=== PATIENT | male | born 1940 | race Caucasian/White ===

== ENCOUNTER 2022-02-01 18:21 | Inpatient (IN) | payer MEDICARE, MEDICAID, SELFPAY ==
--- NOTE | ~2022-02-01 | CT_ITS ---
EXAMINATION: CT HEAD WITHOUT CONTRAST CLINICAL INFORMATION: Mental status change. COMPARISON: None TECHNIQUE: Contiguous axial imaging was performed from the skull base to vertex without intravenous administration of contrast. This CT examination was performed using dose optimization techniques as appropriate, variously including the following: *Automated exposure control *Adjustment of mA and/or kV according to patient size (this includes techniques or standardized protocols for targeted exams where dose is matched to indication/reason for exam; i.e. extremities or head) *Use of iterative reconstruction technique DLP: 769.29 mGy-cm FINDINGS: There is no evidence of acute intracranial hemorrhage or territorial infarction. No abnormal mass effect or midline shift is seen. [place] to white matter differentiation is well preserved. No extra-axial fluid collections are identified. The ventricles and sulci are mildly enlarged. There is an anatomic variant of cavum septum pellucidum and cavum vergae seen. There is prominent periventricular and deep white matter low-attenuation seen, consistent with ischemic small vessel disease. Calcifications of the carotid siphons and the vertebral arteries seen. The osseous structures and soft tissues are normal. The mastoid air cells and visualized portions of the paranasal sinuses are well aerated. CT/CT head/brain wo con IMPRESSION: -No acute intracranial pathology. -Prominent findings of ischemic small vessel disease.
--- NOTE | ~2022-02-01 | XR_ITS ---
EXAMINATION: XR CHEST CLINICAL INFORMATION: Confusion and change in mental status COMPARISON: None TECHNIQUE: Frontal view of the chest was obtained. FINDINGS: No significant abnormality is noted involving the heart, lungs, mediastinum, bony thorax or soft tissues. Some minimal scarring or atelectasis may be present in the upper lobes. XR/XR chest 1V IMPRESSION: No acute intrathoracic disease
[2022-02-01 18:27] VITALS: BP 170/64; PULSE 84; RESP 16; TEMP 36.3; O2SAT 99; BMI 26.3
[2022-02-01 18:40] LABS: Glucose, Whole Blood 40 mg/dL (60-115)
--- NOTE | 2022-02-01 18:41 | PC.NURSE ---
patient is alert & oriented x4. POC 40 on arrival by this RN. present and aware of POC. Given 2 cups of orange juice with 2 sugar packets. Per EMS, was given 2mg of Glucagon by SNF prior to arrival. Pt denies history of diabetes, has fistula to right side. will recheck POC and obtain labs per MD orders.
--- NOTE | 2022-02-01 18:45 | ECG_ITS ---
Test Reason : HYPOGLYCEMIA Blood Pressure : / mmHG Vent. Rate : 079 BPM Atrial Rate : 079 BPM P-R Int : 162 ms QRS Dur : 088 ms QT Int : 316 ms P-R-T Axes : 048 005 055 degrees QTc Int : 362 ms Normal sinus rhythm Nonspecific T wave abnormality Abnormal ECG No previous ECGs available Referred By: Mehnaz Saleem Electronically Signed By:RAMA RAMIRES
[2022-02-01 19:04] LABS: Glucose, Whole Blood 44 mg/dL (60-115)
--- NOTE | 2022-02-01 19:06 | ED_ITS ---
HPI - General Adult General Chief complaint: General Medical Stated complaint: Hypoglycemia Time Seen by Provider: 02/01/22 18:43 Source: patient, EMS and RN notes reviewed Mode of arrival: EMS Limitations: no limitations History of Present Illness HPI narrative: 82-year-old male came in from [facility] SNF for evaluation of hypoglycemia. Patient found slurred speech and increased twitching and tremor 1 blood sugar was checked at the care home found to be 50 patient was given 2 mg of glucagon IM at the care home patient was transported to the hospital patient is awake and able to give history, patient felt slightly confused with increased shakiness and tremor, reviewing patient's record from SNF patient is not diabetic. Past medical history is significant for CAD, BPH, right arm AV fistula, CKD stage 3 no hemodialysis. Related Data Allergies Allergy/AdvReac Type Severity Reaction Status Date / Time peanut Allergy Anaphylaxis Verified 02/01/22 18:36 Review of Systems Review of Systems: All other systems are reviewed and are negative Constitutional: Reports as per HPI and Reports no additional constitutional complaints Eyes: Reports as per HPI and Reports no additional eye complaints Reports system reviewed and no additional complaints, except as documented Cardiovascular: Reports as per HPI and Reports no additional cardiovascular complaints Respiratory: Reports as per HPI and Reports no additional respiratory complaints Gastrointestinal: Reports as per HPI and Reports no additional gastrointestinal complaints Genitourinary: Reports no additional female genitourinary complaints Musculoskeletal: Reports no additional musculoskeletal complaints Skin/Breast: Reports system reviewed and no additional complaints, except as docu Psychiatric: Reports no additional psychiatric complaints Endocrine: Reports no additional endocrine complaints Hematologic/Lymphatic: Reports no additional hematologic/lymphatic complaints Allergic/Immunologic: Reports no additional allergic/immunologic complaints Reports system reviewed and no additional complaints, except as documented and Reports Abnormal speech present [facility] Social History Social History Advance Directives: No Advance Directives Information Provided: Yes Physical Exam ED Vital Signs: Vital Signs - 24 hr 02/01/22 18:27 Temperature 97.3 F Pulse Rate 84 Respiratory Rate 16 Blood Pressure 170/64 H Pulse Oximetry 99 Oxygen Delivery Method Room Air BMI result Body Mass Index 26.3 Vital signs have been reviewed as appeared to be correct. Blood pressure elevated, Heart rate normal. Respiration rate normal. Temperature normal. Oxygen saturation normal. Appearance: Alert. Oriented X3. No acute distress. Head: Normal external exam. Normocephalic. Atraumatic. No Julian signs noted. No raccoon eyes noted Eyes: PERRLA. EOMI. Conjunctiva and sclera normal. Eyelids normal. ENT: TM's Normal. Pharynx normal. Uvula midline. Moist mucous membranes. No trismus noted. No drooling noted. No muffled voice noted. Neck: Normal inspection. Neck supple. FROM. No adenopathy. Thyroid Normal. No meningeal signs. No neck mass noted. CVS: Normal heart rate and rhythm. Heart sound normal. No murmurs noted. Pulses normal throughout. Respiratory: No respiratory distress. Painless inspiration. Breath sounds normal. No wheezes/rales/rhonchi noted. Chest nontender. No accessory muscle usage noted or decreased air movement noted. Abdomen: Soft and nontender. Bowel sounds normal in all 4 quadrants. No distention noted. No organomegaly noted. No visible injury noted. Back: No CVA tenderness. Full range of motion noted. Skin: Skin warm and dry. Normal skin color. Normal skin turgor. No rashes/lesions/lacerations noted. Extremities: No lower extremity edema. Extremities exhibit normal range of motion. Extremities nontender. Neuro: Oriented X 3. Cranial nerve exam: II-XII are grossly intact No motor deficit. No sensory deficit. Reflexes normal. Course Course Course Narrative: 82-year-old male came in from SNF with hypoglycemia, patient is not known to be diabetic or taking anti-hyperglycemic agents, patient remained with hyp oglycemia despite several administration of glucagon at the care home and oral juice, and D5W fluid, and D50 25 g IV. Labs is not indicating sepsis or infection, unremarkable head CT/chest x-ray. Will admit the patient with continuous D5W and continuous BS monitoring. Incidental hypo magnesemia will replace magnesium IV. Medical Decision Making Lab Data Lab results reviewed: Yes I reviewed the patient's lab results. Result diagrams: 02/01/22 19:30 02/01/22 19:30 Labs: Lab Results 02/01/22 02/01/22 02/01/22 Range/Units 18:30 19:00 19:30 WBC 11.8 H (4.8-10.8) X10*3/uL RBC 3.20 L (4.60-5.80) X10*6/uL Hgb 9.9 L (14.0-18.0) g/dl Hct 29.8 L (42.0-52.0) % MCV 93.1 (80.0-98.0) fL MCH 30.9 (27.0-33.0) pg MCHC 33.2 (31.0-36.0) g/dl RDW 12.9 (11.0-16.0) % Plt Count 236 (160-400) X10*3/uL MPV 8.4 L (9.4-12.4) fL Immature Gran % (Auto) 0.5 H (0.0-0.4) % Neut % (Auto) 92.9 H (45-73) % Lymph % (Auto) 1.6 L (20-40) % [place] % (Auto) 5.0 (2-11) % Eos % (Auto) 0.0 (0-4) % Baso % (Auto) 0.0 (0-2) % Lymph # (Auto) 0.2 L (1.2-4.9) X10*3/uL [place] # (Auto) 0.6 (0.1-1.2) X10*3/uL Eos # (Auto) 0.0 (0.0-0.4) X10*3/uL Baso # (Auto) 0.0 (0.0-0.2) X10*3/uL Abs Immat Gran (auto) 0.06 H (0.00-0.03) X10*3/uL Absolute Neuts (auto) 10.9 H (2.0-8.3) x10*3/uL Absolute Nucleated RBC 0.000 (0.0-0.012) X10*3/uL Nucleated RBC % (auto) 0.0 (0.0-0.2) /100WBC Smear Tech's Comments VERIFIED Sodium (135-145) mmol/L Potassium (3.3-5.1) mmol/L Chloride (96-108) mmol/L Carbon Dioxide (22-29) mmol/L Anion Gap (12-20) BUN (9-16) mg/dL Creatinine (0.5-1.4) mg/dL Estim Creat Clear Calc Estimated GFR POC Glucose 40 L* 44 L* (60-115) mg/dL Random Glucose (60-115) mg/dL Lactic Acid (0.5-2.0) mmol/L Calcium (8.4-10.2) mg/dL Magnesium (1.6-2.6) mg/dL Total Bilirubin (0.0-1.0) mg/dL Direct Bilirubin (0.0-0.5) mg/dL AST (5-37) U/L ALT (0-40) U/L Alkaline Phosphatase (39-117) U/L Troponin I High Sens (<3.5-35.0) ng/L B-Natriuretic Peptide (<100) pg/mL Total Protein (6.5-8.0) g/dL Albumin (3.5-5.0) g/dL Lipase (8-78) U/L COVID-19 (MIKAELA) (Negative) COVID-19 Clin Com 02/01/22 02/01/22 02/01/22 Range/Units 19:30 19:30 19:30 WBC (4.8-10.8) X10*3/uL RBC (4.60-5.80) X10*6/uL Hgb (14.0-18.0) g/dl Hct (42.0-52.0) % MCV (80.0-98.0) fL MCH (27.0-33.0) pg MCHC (31.0-36.0) g/dl RDW (11.0-16.0) % Plt Count (160-400) X10*3/uL MPV (9.4-12.4) fL Immature Gran % (Auto) (0.0-0.4) % Neut % (Auto) (45-73) % Lymph % (Auto) (20-40) % [place] % (Auto) (2-11) % Eos % (Auto) (0-4) % Baso % (Auto) (0-2) % Lymph # (Auto) (1.2-4.9) X10*3/uL [place] # (Auto) (0.1-1.2) X10*3/uL Eos # (Auto) (0.0-0.4) X10*3/uL Baso # (Auto) (0.0-0.2) X10*3/uL Abs Immat Gran (auto) (0.00-0.03) X10*3/uL Absolute Neuts (auto) (2.0-8.3) x10*3/uL Absolute Nucleated RBC (0.0-0.012) X10*3/uL Nucleated RBC % (auto) (0.0-0.2) /100WBC Smear Tech's Comments Sodium 139 (135-145) mmol/L Potassium 3.7 (3.3-5.1) mmol/L Chloride 106 (96-108) mmol/L Carbon Dioxide 22 (22-29) mmol/L Anion Gap 15 (12-20) BUN 46 H (9-16) mg/dL Creatinine 1.60 H (0.5-1.4) mg/dL Estim Creat Clear Calc 32.7 Estimated GFR 41 POC Glucose (60-115) mg/dL Random Glucose 29 L* (60-115) mg/dL Lactic Acid (0.5-2.0) mmol/L Calcium 9.1 (8.4-10.2) mg/dL Magnesium (1.6-2.6) mg/dL Total Bilirubin 0.3 (0.0-1.0) mg/dL Direct Bilirubin 0.2 (0.0-0.5) mg/dL AST 10 (5-37) U/L ALT 10 (0-40) U/L Alkaline Phosphatase 54 (39-117) U/L Troponin I High Sens 11.8 (<3.5-35.0) ng/L B-Natriuretic Peptide 165 H (<100) pg/mL Total Protein 6.5 (6.5-8.0) g/dL Albumin 3.9 (3.5-5.0) g/dL Lipase 35 (8-78) U/L COVID-19 (MIKAELA) Negative (Negative) COVID-19 Clin Com See Note 02/01/22 02/01/22 02/01/22 Range/Units 19:30 19:30 20:15 WBC (4.8-10.8) X10*3/uL RBC (4.60-5.80) X10*6/uL Hgb (14.0-18.0) g/dl Hct (42.0-52.0) % MCV (80.0-98.0) fL MCH (27.0-33.0) pg MCHC (31.0-36.0) g/dl RDW (11.0-16.0) % Plt Count (160-400) X10*3/uL MPV (9.4-12.4) fL Immature Gran % (Auto) (0.0-0.4) % Neut % (Auto) (45-73) % Lymph % (Auto) (20-40) % [place] % (Auto) (2-11) % Eos % (Auto) (0-4) % Baso % (Auto) (0-2) % Lymph # (Auto) (1.2-4.9) X10*3/uL [place] # (Auto) (0.1-1.2) X10*3/uL Eos # (Auto) (0.0-0.4) X10*3/uL Baso # (Auto) (0.0-0.2) X10*3/uL Abs Immat Gran (auto) (0.00-0.03) X10*3/uL Absolute Neuts (auto) (2.0-8.3) x10*3/uL Absolute Nucleated RBC (0.0-0.012) X10*3/uL Nucleated RBC % (auto) (0.0-0.2) /100WBC Smear Tech's Comments Sodium (135-145) mmol/L Potassium (3.3-5.1) mmol/L Chloride (96-108) mmol/L Carbon Dioxide (22-29) mmol/L Anion Gap (12-20) BUN (9-16) mg/dL Creatinine (0.5-1.4) mg/dL Estim Creat Clear Calc Estimated GFR POC Glucose 48 L* (60-115) mg/dL Random Glucose (60-115) mg/dL Lactic Acid 1.0 (0.5-2.0) mmol/L Calcium 9.8 D (8.4-10.2) mg/dL Magnesium 1.5 L (1.6-2.6) mg/dL Total Bilirubin (0.0-1.0) mg/dL Direct Bilirubin (0.0-0.5) mg/dL AST (5-37) U/L ALT (0-40) U/L Alkaline Phosphatase (39-117) U/L Troponin I High Sens (<3.5-35.0) ng/L B-Natriuretic Peptide (<100) pg/mL Total Protein (6.5-8.0) g/dL Albumin (3.5-5.0) g/dL Lipase (8-78) U/L COVID-19 (MIKAELA) (Negative) COVID-19 Clin Com Imaging Data CT scan - head: Attestation: I personally reviewed and interpreted this imaging study as follows: Radiologist's impression: No acute intracranial pathology. -Prominent findings of ischemic small vessel disease. Chest x-ray: Attestation: I personally reviewed and interpreted this imaging study as follows: Radiologist's impression: No acute intrathoracic disease. ECG Data Attestation: I personally reviewed and interpreted this ECG as follows: Interpretation: Normal sinus rhythm at 79 beats per minutes, diffuse nonspecific T-wave changes, normal intervals, no previous EKG to compare. Discharge Plan Discharge Clinical Impression: Hypoglycemia, Hypomagnesemia Patient Disposition: Admitted As Inpatient
[2022-02-01 19:42] LABS: Hematocrit 29.8 % (42.0-52.0); Hemoglobin 9.9 g/dl (14.0-18.0); Imm Gran Abs Auto 0.06 X10*3/uL (0.00-0.03); Imm Gran Pct Auto 0.5 % (0.0-0.4); Lymphocytes Absolute Auto 0.2 X10*3/uL (1.2-4.9); Lymphocytes Percent Auto 1.6 % (20-40); Mean Corpuscular HGB Conc 33.2 g/dl (31.0-36.0); Mean Corpuscular Hemoglobin 30.9 pg (27.0-33.0); Mean Corpuscular Volume 93.1 fL (80.0-98.0); Mean Platelet Volume 8.4 fL (9.4-12.4); Monocytes Absolute Auto 0.6 X10*3/uL (0.1-1.2); Neutrophils Absolute Auto 10.9 x10*3/uL (2.0-8.3); Neutrophils Percent Auto 92.9 % (45-73); Platelet Count 236 X10*3/uL (160-400); Red Cell Distribution Width 12.9 % (11.0-16.0); SCAN SMEAR FLAG 1; White Blood Count 11.8 X10*3/uL (4.8-10.8)
[2022-02-01 19:43] LABS: MANUAL DIFF FLAG SCAN
[2022-02-01] MEDS: Dextrose 5 % 1,000 ML 500 ML IVCONT (19:51)
[2022-02-01 19:58] LABS: COVID-19 Test Negative (Negative)
[2022-02-01 20:03] LABS: Calcium 9.8 mg/dL (8.4-10.2); Magnesium 1.5 mg/dL (1.6-2.6)
[2022-02-01 20:04] LABS: SLIDE REVIEW VERIFIED
[2022-02-01 20:07] LABS: B Type Natriuretic Peptide 165 pg/mL (<100); Troponin-I High Sensitivity 11.8 ng/L (<3.5-35.0)
[2022-02-01 20:10] LABS: Alanine Aminotransferase 10 U/L (0-40); Albumin Level 3.9 g/dL (3.5-5.0); Alkaline Phosphatase 54 U/L (39-117); Anion Gap 15 (12-20); Aspartate Amino Transferase 10 U/L (5-37); Bilirubin Direct 0.2 mg/dL (0.0-0.5); Bilirubin Total 0.3 mg/dL (0.0-1.0); Blood Urea Nitrogen 46 mg/dL (9-16); Calcium 9.1 mg/dL (8.4-10.2); Carbon Dioxide 22 mmol/L (22-29); Chloride 106 mmol/L (96-108); Creatinine Clr Calc Pharmacy 32.7; Estimated Glomerular Filt Rate 41; Glucose Random 29 mg/dL (60-115); Lipase 35 U/L (8-78); Potassium 3.7 mmol/L (3.3-5.1); Sodium 139 mmol/L (135-145); Total Protein 6.5 g/dL (6.5-8.0)
[2022-02-01 20:19] LABS: Glucose, Whole Blood 48 mg/dL (60-115)
[2022-02-01] MEDS: Dextrose 50 % 25 GM/50 ML SYRINGE IVPUSH ×2 (20:24→23:54)
[2022-02-01] MEDS: Magnesium Sulfate/H2O 2 GM/50 ML PIGGYBACK IV (21:06)
[2022-02-01] MEDS: Heparin Sodium,Porcine 5,000 UNIT/ML VIAL 5000 UNIT SUBCUT (21:06)
[2022-02-01 21:15] LABS: Thyroid Stimulating Hormone 0.46 uIU/mL (0.32-4.0)
[2022-02-01 21:20] LABS: Glucose, Whole Blood 74 mg/dL (60-115)
--- NOTE | 2022-02-01 21:25 | PHA.MEDREC ---
Pharmacy Consult ? Medication Reconciliation Pharmacy has completed the medication reconciliation. LIST PER [place] [facility]
--- NOTE | 2022-02-01 21:35 | PC.NURSE ---
Dextrose 10% 1000ml bags not on unit. Called Nursing Mental Health Aides Teacher (Tom) and Pharmacy regarding order. Nursing calendering supervisor looking for D10 within hospital. However, 250ml bags of D10 are available if 1L bags aren't located within [facility]. Will continue D5W administration until D10 is available.
[2022-02-01] MEDS: Dextrose 10 % 1,000 ML 50 ML IVCONT (22:31)
[2022-02-01] MEDS: dexAMETHasone sod phosphate 4 MG/ML VIAL IVPUSH (22:36)
--- NOTE | 2022-02-01 23:37 | P.HPHOSP_ITS ---
History of Present Illness Date of Service: 02/01/22 Chief Complaint: AMS 82-year-old male with a past medical history hypertension, hyperlipidemia, BPH, CKD, history of kidney transplant, dry eye syndrome, vitamin-D deficiency, dysphagia, spinal stenosis, right arm AV fistula, CAD, hyperparathyroidism, macular degeneration, squamous cell carcinoma of the trunk, basal cell carcinoma of the skin of left ER, varicose veins, dementia, intermediate resident presented to the hospital today with a chief complaint of altered mental status/ hypoglycemia. Spoke to the RN - PHURBU at the intermediate- who mentions that patient was noted to be slightly altered than his baseline; has fingerstick glucose checked and noted to have 50 of fingerstick glucose; subsequently EMS was called in and sent him to the hospital for further evaluation. Denies patient complaining of any fever chills cough, abdominal pain. Denies any fall or trauma. Denies patient complaining of any chest pain palpitations. Denied any seizure-like episode. Mentions that patient is usually able to tolerate regular food okay; walks with the help of a cane or walker. Denies any numbness tingling or focal weakness. At the time of my entry patient is alert and awake, oriented times 2; pleasantly confused. Denies any pain. Reports he was feeling cold; has few blankets in place. Review of all other systems is negative except mentioned above ER course: Per ER team patient on presentation noted to be alert and awake; exam grossly nonfocal; CT head showed no acute findings; on labs noted to have creatinine of 1.6-unknown baseline; EKG was nonischemic; fingerstick glucose noted to be in 40s; patient was given glucagon and route by EMS; patient was placed on D10 after giving D50 IV push. Patient continued to have episodes of hypoglycemia; placed on D10 drip; admitted to the hospital for further management. [facility] Social History Household Members: None Housing: Retirement Patient Tobacco Use Status: Never used Tobacco service: No Current occupational status: disabled Meds Allergies Allergy/AdvReac Type Severity Reaction Status Date / Time peanut Allergy Anaphylaxis Verified 02/01/22 18:36 Active Medications: Current Medications Acetaminophen (Acetaminophen 325 Mg Tablet) 650 mg PO Q6H PRN PRN Reason: Pain, Mild (Pain Scale 1-3) Dextrose (Dextrose 50 % 25 Gm/50 Ml Syringe) 25 gm IVPUSH Q15M PRN; Protocol PRN Reason: per Hypoglycemia Standing Ord. Glucose (Glucose Gel 15 Gm Gel..Gram.) 15 gm PO Q15M PRN; Protocol PRN Reason: per Hypoglycemia Standing Ord. Heparin Sodium (Porcine) (Heparin Sodium,Porcine 5,000 Unit/Ml Vial) 5,000 unit SUBCUT Q8H [facility] Last Admin: 02/01/22 21:06 Dose: 5,000 unit Hydromorphone HCl (Hydromorphone Hcl 0.5 Mg/0.5 Ml Syringe) 0.5 mg IVPUSH Q4H PRN; Protocol PRN Reason: Pain, Severe (Pain Scale 7-10) Dextrose (D10) 1,000 mls @ 50 mls/hr IVCONT .Q20H [facility] Last Admin: 02/01/22 22:31 Dose: 50 mls/hr Melatonin (Melatonin 3 Mg Tablet) 6 mg PO BEDTIME PRN PRN Reason: Insomnia Pharmacy Consult (Consult Rx Perform Med Rec) 1 each MISCELLANE ONCE PRN PRN Reason: Consult order Senna (Sennosides 8.6 Mg Tablet) 17.2 mg PO BEDTIME PRN PRN Reason: Constipation Sodium Chloride (0.9 % Sodium Chloride Flush 3 Ml Syringe) 3 ml IVFLUSH QSHIFT [facility] Home Medications Medication Instructions Recorded Confirmed Last Taken Type Icaps MV 1 tab PO DAILY 02/01/22 02/01/22 02/01/22 History aspirin 81 mg tablet,delayed 81 mg PO DAILY 02/01/22 02/01/22 02/01/22 History release bupropion HCl 300 mg 24 hr tablet, 1 tab PO DAILY 02/01/22 02/01/22 02/01/22 History extended release calcitriol 0.25 mcg capsule 1 cap PO DAILY 02/01/22 02/01/22 02/01/22 History cholecalciferol (vitamin D3) 1,250 1,250 mcg PO QMONTH 02/01/22 02/01/22 01/09/22 09:00 History mcg (50,000 unit) capsule cinacalcet 30 mg tablet 1 tab PO DAILY 02/01/22 02/01/22 02/01/22 History cyanocobalamin (vitamin B-12) 1,000 mcg PO DAILY 02/01/22 02/01/22 02/01/22 History 1,000 mcg tablet (Vitamin B-12) cyclosporine modified 100 mg 100 mg PO BID@02/01/22 02/01/22 02/01/22 History capsule dutasteride 0.5 mg capsule 1 cap PO DAILY 02/01/22 02/01/22 02/01/22 History escitalopram oxalate 20 mg tablet 1 tab PO DAILY 02/01/22 02/01/22 02/01/22 History glucosamine sulf dipotassium Cl 1 tab PO DAILY 02/01/22 02/01/22 02/01/22 History 500 mg-chondroitin sulf 400 mg tablet (Glucosamine-Chondroitin DS) lamotrigine 25 mg tablet 250 mg PO DAILY 02/01/22 02/01/22 02/01/22 History losartan 50 mg tablet 1 tab PO DAILY 02/01/22 02/01/22 02/01/22 History mycophenolate mofetil 250 mg 500 mg PO BID@02/01/22 02/01/22 02/01/22 History capsule (CellCept) peg 400-propylene glycol 0.4 %-0.3 1 drp ophthalmic (eye) BID@02/01/22 02/01/22 02/01/22 History % eye drops PRN Dry Eye(S) psyllium 1 tbsp PO DAILY@182902/01/22 02/01/22 02/01/22 History tamsulosin 0.4 mg capsule 2 cap PO DAILY@182902/01/22 02/01/22 02/01/22 History tramadol 50 mg tablet 1 tab PO BEDTIME 02/01/22 02/01/22 Unknown History trazodone 100 mg tablet 1 tab PO DAILY@182902/01/22 02/01/22 02/01/22 History verapamil 240 mg 24 hr 1 cap PO DAILY 02/01/22 02/01/22 02/01/22 History capsule,extended release Physical Exam Vital Signs and Narrative: Vital Signs: Last Vital Signs Temp 97.3 F 02/01/22 18:27 Pulse 84 02/01/22 18:27 Resp 16 02/01/22 18:27 BP 170/64 H 02/01/22 18:27 Pulse Ox 99 07/24/22 18:27 O2 Del Method 02/01/22 18:27 BMI result Body Mass Index 26.3 Gen: Appears be in no acute distress ; breathing comfortably on room air. Speech is clear. HEENT: NCAT, Moist mucosa. Pulmonary: Vesicular breath sounds, fair air entry CVS: Normal S1-S2 Abdomen: BS+, Soft, Nontender Extremities: Warm well perfused ; right arm has big tortuous vein, with the distal AV fistula- has good thrill. Neuro: Alert and awake. Grossly nonfocal. Oriented x2. Results Labs CBC and Chem 7: 02/02/22 05:42 02/10/22 06:52 Labs: Laboratory Results - last 24 hr 02/01/22 02/01/22 02/01/22 18:30 19:00 19:30 MCV 93.1 MCH 30.9 MCHC 33.2 RDW 12.9 Plt Count 236 MPV 8.4 L Immature Gran % (Auto) 0.5 H Neut % (Auto) 92.9 H Lymph % (Auto) 1.6 L [place] % (Auto) 5.0 Eos % (Auto) 0.0 Baso % (Auto) 0.0 Lymph # (Auto) 0.2 L [place] # (Auto) 0.6 Eos # (Auto) 0.0 Baso # (Auto) 0.0 Abs Immat Gran (auto) 0.06 H Absolute Neuts (auto) 10.9 H Absolute Nucleated RBC 0.000 Nucleated RBC % (auto) 0.0 Smear Tech's Comments VERIFIED Anion Gap Estim Creat Clear Calc Estimated GFR POC Glucose 40 L* 44 L* Random Glucose Lactic Acid Calcium Magnesium Total Bilirubin Direct Bilirubin AST ALT Alkaline Phosphatase Troponin I High Sens B-Natriuretic Peptide Total Protein Albumin Lipase TSH COVID-19 (MIKAELA) COVID-19 Clin Com 02/01/22 02/01/22 02/01/22 19:30 19:30 19:30 MCV MCH MCHC RDW Plt Count MPV Immature Gran % (Auto) Neut % (Auto) Lymph % (Auto) [place] % (Auto) Eos % (Auto) Baso % (Auto) Lymph # (Auto) [place] # (Auto) Eos # (Auto) Baso # (Auto) Abs Immat Gran (auto) Absolute Neuts (auto) Absolute Nucleated RBC Nucleated RBC % (auto) Smear Tech's Comments Anion Gap 15 Estim Creat Clear Calc 32.7 Estimated GFR 41 POC Glucose Random Glucose 29 L* Lactic Acid Calcium 9.1 Magnesium Total Bilirubin 0.3 Direct Bilirubin 0.2 AST 10 ALT 10 Alkaline Phosphatase 54 Troponin I High Sens 11.8 B-Natriuretic Peptide 165 H Total Protein 6.5 Albumin 3.9 Lipase 35 TSH 0.46 COVID-19 (MIKAELA) Negative COVID-19 Clin Com See Note 02/01/22 02/01/22 02/01/22 19:30 19:30 20:15 MCV MCH MCHC RDW Plt Count MPV Immature Gran % (Auto) Neut % (Auto) Lymph % (Auto) [place] % (Auto) Eos % (Auto) Baso % (Auto) Lymph # (Auto) [place] # (Auto) Eos # (Auto) Baso # (Auto) Abs Immat Gran (auto) Absolute Neuts (auto) Absolute Nucleated RBC Nucleated RBC % (auto) Smear Tech's Comments Anion Gap Estim Creat Clear Calc Estimated GFR POC Glucose 48 L* Random Glucose Lactic Acid 1.0 Calcium 9.8 D Magnesium 1.5 L Total Bilirubin Direct Bilirubin AST ALT Alkaline Phosphatase Troponin I High Sens B-Natriuretic Peptide Total Protein Albumin Lipase TSH COVID-19 (MIKAELA) COVID-19 Clin Com 02/01/22 21:15 MCV MCH MCHC RDW Plt Count MPV Immature Gran % (Auto) Neut % (Auto) Lymph % (Auto) [place] % (Auto) Eos % (Auto) Baso % (Auto) Lymph # (Auto) [place] # (Auto) Eos # (Auto) Baso # (Auto) Abs Immat Gran (auto) Absolute Neuts (auto) Absolute Nucleated RBC Nucleated RBC % (auto) Smear Tech's Comments Anion Gap Estim Creat Clear Calc Estimated GFR POC Glucose 74 Random Glucose Lactic Acid Calcium Magnesium Total Bilirubin Direct Bilirubin AST ALT Alkaline Phosphatase Troponin I High Sens B-Natriuretic Peptide Total Protein Albumin Lipase TSH COVID-19 (MIKAELA) COVID-19 [facility] Com Imaging Radiologist's Impressions: Impressions Chest X-Ray 02/01/22 18:58 IMPRESSION: No acute intrathoracic disease Head CT 02/01/22 19:01 IMPRESSION: -No acute intracranial pathology. -Prominent findings of ischemic small vessel disease. Assessment and Plan (1) Hypoglycemia: Status: Acute (2) UTI (urinary tract infection): Status: Acute (3) AMS (altered mental status): Status: Acute Plan 82-year-old male with a past medical history hypertension, hyperlipidemia, BPH, CKD, history of kidney transplant, dry eye syndrome, vitamin-D deficiency, dysphagia, spinal stenosis, right arm AV fistula, CAD, hyperparathyroidism, macular degeneration, squamous cell carcinoma of the trunk, basal cell carcinoma of the skin of left ER, varicose veins, dementia, intermediate resident presente d to the hospital today with a chief complaint of altered mental status/ hypoglycemia. Noted to have following conditions- Altered mental status: Likely toxic metabolic encephalopathy. Supportive care. Aspiration precautions. Speech and swallow eval. Fall precautions. Hypoglycemia: Patient had recurrent hypoglycemia. Unclear etiology. placed on hypoglycemia protocol. Continue D10 IV continuously. Q1-2Hr POC glucose checks. Seizure precautions. Will send hypoglycemia panel, insulin, proinsulin, beta hydroxybutyrate, C- peptide. Endocrine follow-up UTI: Patient is hypothermic, has mild leukocytosis. Urinalysis contain positive nitrates and leuk esterase. Will give the patient on IV ceftriaxone. Follow up cultures. Placed on warm blankets. Urinary retention: Patient had urinary retention about 1200 cc. George catheter placed. Likely in the setting of UTI. Will also consult Urology. Renal insufficiency: Patient has history of CKD. Has a right arm fistula with good thrill. Denies being on dialysis. Patient's creatinine on presentation is 1.6. Unknown baseline. Has history of kidney transplant: Continue home mycophenolate, cyclosporine Nephrology consult History of BPH: Continue home dutasteride, Flomax. history of dementia with behavioral disturbances: Continue home escitalopram, lamotrigine, trazodone History of hypertension: Continue home losartan, verapamil DVT prophylaxis: Subcu heparin Code status: DNR / DNI. Patient has molst form. Quality Stroke Does the patient have a stroke diagnosis?: No VTE Prior VTE?: No VTE Risk Level:: Medical - moderate - high VTE Device Contraindication: Treatment Not Indicated VTE Drug Contraindication: N/A - Med Ordered
[2022-02-01 23:54] LABS: Glucose, Whole Blood 22 mg/dL (60-115)
[2022-02-02] VITALS (7 sets, daily range): BP systolic 150–190; BP diastolic 67–81; PULSE 85–104; RESP 14–24; TEMP 35.9–36.8; O2SAT 91–98; BMI 26.4
[2022-02-02 00:18] LABS: Glucose, Whole Blood 186 mg/dL (60-115)
[2022-02-02 00:32] LABS: Appearance Urine HAZY; Color Urine YELLOW; Glucose Urine UA NEG (NEG); Leukocyte Esterase Urine TRACE (NEG); Nitrite Urine POS (NEG); UACC Culture Trigger YES; Urine Blood TRACE (NEG); Urine Ketones NEG (NEG); Urine Protein NEG (NEG-TRACE)
[2022-02-02] MEDS: 0.9 % Sodium Chloride Flush 3 ML SYRINGE IVFLUSH ×3 (00:37→22:44)
[2022-02-02] MEDS: Lidocaine HCl 2 % Urojet 10 ML JEL.PF.APP TOPICAL (00:37)
--- NOTE | 2022-02-02 00:38 | PC.NURSE ---
Coude catheter inserted. Urojet administered for procedure. Pt tolerated well. Urine draining into urine bag. George ordered by Dr. Rosa (hospitalist). Urine specimen collected & sent to lab for analysis, awaiting results. POC glucose to be checked hourly per Dr. Rosa. POC at 00:14 was 186. Hospitalist aware. Will continue to monitor. Pt is afebrile, but tremulous. SPO2 forehead monitor placed due to difficulty reading due to tremors. Pt remains pleasant/cooperative/calm, denies complaints at this time.
[2022-02-02 00:45] LABS: Mucus Urine TRACE /LPF; Squamous Epithelial Cell Urine TRACE /LPF
[2022-02-02 00:46] LABS: Bacteria Urine 1+ /LPF; RBC Urine 0-2 /HPF (0)
[2022-02-02 01:03] LABS: Glucose, Whole Blood 83 mg/dL (60-115)
--- NOTE | 2022-02-02 02:06 | PC.NURSE ---
MD notified of persistent hypoglycemia despite D10 infusion and 2 amps of D50. Per MD, to feed pt as much as possible and recheck POC.
[2022-02-02 02:09] LABS: Glucose, Whole Blood 32 mg/dL (60-115)
[2022-02-02 02:56] LABS: Glucose, Whole Blood 41 mg/dL (60-115)
--- NOTE | 2022-02-02 03:21 | PC.NURSE ---
A second IV established to left upper arm as IV to LAC infusing poorly. IVFs not infusing without difficulty. Continue to monitor.
[2022-02-02] MEDS: cefTRIAXone sodium 1 GM in 0.9 % Sodium Chloride 50 ML IV (03:41)
[2022-02-02 04:14] LABS: Glucose, Whole Blood 94 mg/dL (60-115)
[2022-02-02 05:48] LABS: Hematocrit 26.9 % (42.0-52.0); Hemoglobin 8.9 g/dl (14.0-18.0); Imm Gran Abs Auto 0.05 X10*3/uL (0.00-0.03); Imm Gran Pct Auto 0.4 % (0.0-0.4); Lymphocytes Absolute Auto 0.2 X10*3/uL (1.2-4.9); Lymphocytes Percent Auto 1.6 % (20-40); MANUAL DIFF FLAG SCAN; Mean Corpuscular HGB Conc 33.1 g/dl (31.0-36.0); Mean Corpuscular Hemoglobin 30.7 pg (27.0-33.0); Mean Corpuscular Volume 92.8 fL (80.0-98.0); Mean Platelet Volume 9.2 fL (9.4-12.4); Monocytes Absolute Auto 0.4 X10*3/uL (0.1-1.2); Monocytes Percent Auto 3.1 % (2-11); Neutrophils Absolute Auto 11.2 x10*3/uL (2.0-8.3); Neutrophils Percent Auto 94.9 % (45-73); PLT CLUMP 1; Red Cell Distribution Width 13.2 % (11.0-16.0); SCAN SMEAR FLAG 1
[2022-02-02 05:51] LABS: White Blood Count 11.8 X10*3/uL (4.8-10.8)
[2022-02-02 06:05] LABS: Magnesium 1.7 mg/dL (1.6-2.6)
[2022-02-02 06:12] LABS: SLIDE REVIEW VERIFIED
[2022-02-02 06:14] LABS: Anion Gap 13 (12-20); Blood Urea Nitrogen 43 mg/dL (9-16); Calcium 8.5 mg/dL (8.4-10.2); Carbon Dioxide 20 mmol/L (22-29); Chloride 105 mmol/L (96-108); Creatinine Clr Calc Pharmacy 34.8; Estimated Glomerular Filt Rate 45; Glucose Random 54 mg/dL (60-115); Potassium 4.5 mmol/L (3.3-5.1); Sodium 133 mmol/L (135-145)
[2022-02-02 06:14] LABS: Glucose, Whole Blood 63 mg/dL (60-115)
--- NOTE | 2022-02-02 06:18 | PC.NURSE ---
Pt constantly provided with food/drink due to continued hypoglycemia. Pt remains on hourly POCs. D10 infusing @ 75 ml/hr. Continue to monitor.
[2022-02-02 06:26] LABS: Insulin 26 uU/mL (2-29)
[2022-02-02 07:34] LABS: Glucose, Whole Blood 69 mg/dL (60-115)
[2022-02-02 08:08] LABS: Glucose, Whole Blood 72 mg/dL (60-115)
[2022-02-02 08:41] LABS: Glucose, Whole Blood 84 mg/dL (60-115)
--- NOTE | 2022-02-02 08:59 | MHC.CM.PN ---
Patient is a LTC (BED HOLD) of [facility] and the goal appears to be for him to return there once medically cleared for dc. CM left a message for Guardian/Bill @ [address] [place] [address] in [place] @ [phone] and will mail original IMM to him and a copy will be placed on the chart.
[2022-02-02] MEDS: lamoTRIgine 25 MG TABLET 250 MG PO (09:23)
[2022-02-02] MEDS: Aspirin Enteric Coated 81 MG TABLET.DR PO (09:23)
[2022-02-02] MEDS: Escitalopram Oxalate 20 MG TABLET PO (09:23)
[2022-02-02] MEDS: Cyanocobalamin (Vitamin B-12) 1,000 MCG TABLET 1000 MCG PO (09:24)
[2022-02-02] MEDS: Heparin Sodium,Porcine 5,000 UNIT/ML VIAL 5000 UNIT SUBCUT ×2 (09:24→17:41)
[2022-02-02] MEDS: Losartan Potassium 50 MG TABLET PO (09:24)
[2022-02-02] MEDS: buPROPion HCl XL 300 MG TAB.ER.24H PO (09:25)
[2022-02-02] MEDS: VerapamiL HCL SR 240 MG TABLET.ER PO (09:25)
[2022-02-02] MEDS: calcitrioL 0.25 MCG CAPSULE PO (09:26)
[2022-02-02] MEDS: Cinacalcet HCl 30 MG TABLET PO (09:26)
--- NOTE | 2022-02-02 10:47 | MHC.SL.SWA ---
Speech Pathologist Impression: WFL Risk of Aspiration Due to: Reduced Cognition Dysphasia Diet Status: No Change Liquid Consistency and Strategies for Safe Swallow: Liquid Intake Recommendation: Thin Liquid Intake Strategies: Small Sips Solid Food Consistency: Dietary Recommendations: Regular Additional Modifications to Solid Foods: Bedside swallow evaluation was unremarkable. Recommend continue w/ unmodified diet. Given hx dementia, recommend aspiration precautions & supervision during meals. Oral Medication Intake: Whole with Liquid Please contact the pharmacy regarding appropriate crushable or liquid drug formulations that are available whenever modified delivery is recommended. Compensatory Strategies and Precautions to be Taken for Safe Swallow: Sitting Upright (90 deg) Small Bites and Sips Alternate Liquids/Solids Rate of Ingestion Change Supervision While Eating and Drinking for Safe Swallow: Total Supervision (1:1) Recommendation for Speech: NA:Typical Evaluation Electroplater Apprentice Clinican/Clinical Fellow: No Supervisory Statement: I have reviewed and agree with the student/clinical fellow's documentation: N/A Speech Language Pathologist: Morenita Hanna M.A., CCC-BLOWING ENGINEER
[2022-02-02] MEDS: mycophenolate mofetiL 250 MG CAPSULE 500 MG PO ×2 (11:10→17:58)
--- NOTE | 2022-02-02 11:15 | PC.NURSE ---
[facility] contacted and they will attempt to get someone to bring in her cephalosporin and will contact us if they are unable
--- NOTE | 2022-02-02 11:27 | HO.PM.IMPN ---
Subjective Subjective Date of Service: 02/02/22 Interval History: f/u on AMS, Hypoglycemia, UTI Interval history: no confusion, Review of Systems no confusion no fever Physical Exam Vital Signs: Vital Signs: Last Vital Signs Temp 96.6 F L 02/02/22 00:00 Pulse 104 H 02/02/22 10:21 Resp 24 H 02/02/22 10:21 BP 190/80 H 02/02/22 10:21 Pulse Ox 97 02/02/22 10:21 O2 Del Method 02/02/22 10:21 BMI result Body Mass Index 26.3 Const: Other: General: AO X 3, no acute distress Resp: CTA bilateral CVS: S1,S2,RRR GI: +BS, NT, no distention Skin: No rash Neuro: motor grossly intact Psych: appropriate affect Objective Data Active Medications Acetaminophen (Acetaminophen 325 Mg Tablet) 650 mg PO Q6H PRN PRN Reason: Pain, Mild (Pain Scale 1-3) Artificial Tears (Artificial Tears 15 Ml Drops) 1 drop EYE-BOTH BID@ PRN PRN Reason: Dry Eye(S) Aspirin (Aspirin Enteric Coated 81 Mg Tablet.) 81 mg PO DAILY [facility] Last Admin: 02/02/22 09:23 Dose: 81 mg Documented By: MILANA Bupropion HCl (Bupropion Hcl Xl 300 Mg Tab.Er.24h) 300 mg PO DAILY [facility] Last Admin: 02/02/22 09:25 Dose: 300 mg Documented By: MILANA Calcitriol (Calcitriol 0.25 Mcg Capsule) 0.25 mcg PO DAILY [facility] Last Admin: 02/02/22 09:26 Dose: 0.25 mcg Documented By: MILANA Cinacalcet (Cinacalcet Hcl 30 Mg Tablet) 30 mg PO DAILY [facility] Last Admin: 02/02/22 09:26 Dose: 30 mg Documented By: MILANA Cyanocobalamin (Cyanocobalamin (Vitamin B-12) 1,000 Mcg Tablet) 1,000 mcg PO DAILY [facility] Last Admin: 02/02/22 09:24 Dose: 1,000 mcg Documented By: MILANA Cyclosporine (Modified) (Cyclosporine, Modified 25 Mg Capsule) 100 mg PO BID@ [facility] Dextrose (Dextrose 50 % 25 Gm/50 Ml Syringe) 25 gm IVPUSH Q15M PRN; Protocol PRN Reason: per Hypoglycemia Standing Ord. Last Admin: 02/01/22 23:54 Dose: 25 gm Documented By: JUAN Escitalopram Oxalate (Escitalopram Oxalate 20 Mg Tablet) 20 mg PO DAILY [facility] Last Admin: 02/02/22 09:23 Dose: 20 mg Documented By: MILANA Glucose (Glucose Gel 15 Gm Gel..Gram.) 15 gm PO Q15M PRN; Protocol PRN Reason: per Hypoglycemia Standing Ord. Heparin Sodium (Porcine) (Heparin Sodium,Porcine 5,000 Unit/Ml Vial) 5,000 unit SUBCUT Q8H [facility] Last Admin: 02/02/22 09:24 Dose: 5,000 unit Documented By: MILANA Hydromorphone HCl (Hydromorphone Hcl 0.5 Mg/0.5 Ml Syringe) 0.5 mg IVPUSH Q4H PRN; Protocol PRN Reason: Pain, Severe (Pain Scale 7-10) Dextrose (D10) 1,000 mls @ 50 mls/hr IVCONT .Q20H [facility] Last Infusion: 02/02/22 04:30 Dose: 75 mls/hr Documented By: MUKESH Ceftriaxone Sodium 1 gm/ (Sodium Chloride) 50 mls @ 100 mls/hr IV DAILY@0600 [facility] Last Infusion: 02/02/22 04:39 Dose: 0 mls/hr Documented By: MUKESH Lamotrigine (Lamotrigine 25 Mg Tablet) 250 mg PO DAILY [facility] Last Admin: 02/02/22 09:23 Dose: 250 mg Documented By: MILANA Losartan Potassium (Losartan Potassium 50 Mg Tablet) 50 mg PO DAILY [facility]; Protocol Last Admin: 02/02/22 09:24 Dose: 50 mg Documented By: MILANA Melatonin (Melatonin 3 Mg Tablet) 6 mg PO BEDTIME PRN PRN Reason: Insomnia Mycophenolate Mofetil (Mycophenolate Mofetil 250 Mg Capsule) 500 mg PO BID@ [facility] Last Admin: 02/02/22 11:10 Dose: 500 mg Documented By: MILANA Non-Formulary Medication (Dutasteride) 1 cap PO DAILY [facility] Pharmacy Consult (Consult Rx Perform Med Rec) 1 each MISCELLANE ONCE PRN PRN Reason: Consult order Senna (Sennosides 8.6 Mg Tablet) 17.2 mg PO BEDTIME PRN PRN Reason: Constipation Sodium Chloride (0.9 % Sodium Chloride Flush 3 Ml Syringe) 3 ml IVFLUSH QSHIFT [facility] Last Admin: 02/02/22 10:44 Dose: Not Given Documented By: MILANA Non-Admin Reason: See Note Tamsulosin HCl (Tamsulosin Hcl 0.4 Mg Capsule) 0.8 mg PO DAILY@1830 [facility] Tramadol HCl (Tramadol Hcl 50 Mg Tablet) 50 mg PO BEDTIME [facility] Trazodone HCl (Trazodone Hcl 100 Mg Tablet) 100 mg PO DAILY@1830 [facility] Verapamil HCl (Verapamil Hcl Sr 240 Mg Tablet.Er) 240 mg PO DAILY [facility]; Protocol Last Admin: 02/02/22 09:25 Dose: 240 mg Documented By: MILANA Labs CBC & Chem 7: 02/02/22 05:42 02/02/22 05:41 Labs: Laboratory Results - last 24 hr 02/01/22 02/01/22 02/01/22 18:30 19:00 19:30 MCV 93.1 MCH 30.9 MCHC 33.2 RDW 12.9 Plt Count 236 MPV 8.4 L Immature Gran % (Auto) 0.5 H Neut % (Auto) 92.9 H Lymph % (Auto) 1.[address] [facility] % (Auto) 5.0 Eos % (Auto) 0.0 Baso % (Auto) 0.0 Lymph # (Auto) 0.[address] [facility] # (Auto) 0.6 Eos # (Auto) 0.0 Baso # (Auto) 0.0 Abs Immat Gran (auto) 0.06 H Absolute Neuts (auto) 10.9 H Absolute Nucleated RBC 0.000 Nucleated RBC % (auto) 0.0 Smear Tech's Comments VERIFIED Anion Gap Estim Creat Clear Calc Estimated GFR POC Glucose 40 L* 44 L* Random Glucose Insulin Level Proinsulin C-Peptide Lactic Acid Calcium Magnesium Total Bilirubin Direct Bilirubin AST ALT Alkaline Phosphatase Troponin I High Sens B-Natriuretic Peptide Total Protein Albumin Lipase TSH Urine Color Urine Appearance Urine pH Ur Specific [place] Urine Protein Urine Glucose (UA) Urine Ketones Urine Blood Urine Nitrite Ur Leukocyte Esterase Urine RBC Urine WBC Ur Squamous Epith Cells Urine Bacteria Urine Mucus COVID-19 (MIKAELA) COVID-19 Clin Com 02/01/22 02/01/22 02/01/22 19:30 19:30 19:30 MCV MCH MCHC RDW Plt Count MPV Immature Gran % (Auto) Neut % (Auto) Lymph % (Auto) [facility] % (Auto) Eos % (Auto) Baso % (Auto) Lymph # (Auto) [facility] # (Auto) Eos # (Auto) Baso # (Auto) Abs Immat Gran (auto) Absolute Neuts (auto) Absolute Nucleated RBC Nucleated RBC % (auto) Smear Tech's Comments Anion Gap 15 Estim Creat Clear Calc 32.7 Estimated GFR 41 POC Glucose Random Glucose 29 L* Insulin Level Proinsulin C-Peptide Lactic Acid Calcium 9.1 Magnesium Total Bilirubin 0.3 Direct Bilirubin 0.2 AST 10 ALT 10 Alkaline Phosphatase 54 Troponin I High Sens 11.8 B-Natriuretic Peptide 165 H Total Protein 6.5 Albumin 3.9 Lipase 35 TSH 0.46 Urine Color Urine Appearance Urine pH Ur Specific [place] Urine Protein Urine Glucose (UA) Urine Ketones Urine Blood Urine Nitrite Ur Leukocyte Esterase Urine RBC Urine WBC Ur Squamous Epith Cells Urine Bacteria Urine Mucus COVID-19 (MIKAELA) Negative COVID-19 Clin Com See Note 02/01/22 02/01/22 02/01/22 19:30 19:30 20:15 MCV MCH MCHC RDW Plt Count MPV Immature Gran % (Auto) Neut % (Auto) Lymph % (Auto) [facility] % (Auto) Eos % (Auto) Baso % (Auto) Lymph # (Auto) [facility] # (Auto) Eos # (Auto) Baso # (Auto) Abs Immat Gran (auto) Absolute Neuts (auto) Absolute Nucleated RBC Nucleated RBC % (auto) Smear Tech's Comments Anion Gap Estim Creat Clear Calc Estimated GFR POC Glucose 48 L* Random Glucose Insulin Level Proinsulin C-Peptide Lactic Acid 1.0 Calcium 9.8 D Magnesium 1.5 L Total Bilirubin Direct Bilirubin AST ALT Alkaline Phosphatase Troponin I High Sens B-Natriuretic Peptide Total Protein Albumin Lipase TSH Urine Color Urine Appearance Urine pH Ur Specific [place] Urine Protein Urine Glucose (UA) Urine Ketones Urine Blood Urine Nitrite Ur Leukocyte Esterase Urine RBC Urine WBC Ur Squamous Epith Cells Urine Bacteria Urine Mucus COVID-19 (MIKAELA) COVID-19 Clin Com 02/01/22 02/01/22 02/02/22 21:15 23:50 00:14 MCV MCH MCHC RDW Plt Count MPV Immature Gran % (Auto) Neut % (Auto) Lymph % (Auto) [facility] % (Auto) Eos % (Auto) Baso % (Auto) Lymph # (Auto) [facility] # (Auto) Eos # (Auto) Baso # (Auto) Abs Immat Gran (auto) Absolute Neuts (auto) Absolute Nucleated RBC Nucleated RBC % (auto) Smear Tech's Comments Anion Gap Estim Creat Clear Calc Estimated GFR POC Glucose 74 22 L* 186 H Random Glucose Insulin Level Proinsulin C-Peptide Lactic Acid Calcium Magnesium Total Bilirubin Direct Bilirubin AST ALT Alkaline Phosphatase Troponin I High Sens B-Natriuretic Peptide Total Protein Albumin Lipase TSH Urine Color Urine Appearance Urine pH Ur Specific [place] Urine Protein Urine Glucose (UA) Urine Ketones Urine Blood Urine Nitrite Ur Leukocyte Esterase Urine RBC Urine WBC Ur Squamous Epith Cells Urine Bacteria Urine Mucus COVID-19 (MIKAELA) COVID-As It Is 02/02/22 02/02/22 02/02/22 00:21 00:59 02:04 MCV MCH MCHC RDW Plt Count MPV Immature Gran % (Auto) Neut % (Auto) Lymph % (Auto) [facility] % (Auto) Eos % (Auto) Baso % (Auto) Lymph # (Auto) [facility] # (Auto) Eos # (Auto) Baso # (Auto) Abs Immat Gran (auto) Absolute Neuts (auto) Absolute Nucleated RBC Nucleated RBC % (auto) Smear Tech's Comments Anion Gap Estim Creat Clear Calc Estimated GFR POC Glucose 83 32 L* Random Glucose Insulin Level Proinsulin C-Peptide Lactic Acid Calcium Magnesium Total Bilirubin Direct Bilirubin AST ALT Alkaline Phosphatase Troponin I High Sens B-Natriuretic Peptide Total Protein Albumin Lipase TSH Urine Color YELLOW Urine Appearance HAZY Urine pH 6.0 Ur Specific [place] 1.020 Urine Protein NEG Urine Glucose (UA) NEG Urine Ketones NEG Urine Blood TRACE Urine Nitrite POS H Ur Leukocyte Esterase TRACE H Urine RBC 0-2 Urine WBC 1-4 Ur Squamous Epith Cells TRACE Urine Bacteria 1+ Urine Mucus TRACE COVID-19 (MIKAELA) COVID-19 I & Combine 02/02/22 02/02/22 02/02/22 02:52 04:06 05:41 MCV MCH MCHC RDW Plt Count MPV Immature Gran % (Auto) Neut % (Auto) Lymph % (Auto) [facility] % (Auto) Eos % (Auto) Baso % (Auto) Lymph # (Auto) [facility] # (Auto) Eos # (Auto) Baso # (Auto) Abs Immat Gran (auto) Absolute Neuts (auto) Absolute Nucleated RBC Nucleated RBC % (auto) Smear Tech's Comments Anion Gap 13 Estim Creat Clear Calc 34.8 Estimated GFR 45 POC Glucose 41 L* 94 Random Glucose 54 L* Insulin Level Proinsulin C-Peptide Lactic Acid Calcium 8.5 D Magnesium Total Bilirubin Direct Bilirubin AST ALT Alkaline Phosphatase Troponin I High Sens B-Natriuretic Peptide Total Protein Albumin Lipase TSH Urine Color Urine Appearance Urine pH Ur Specific [place] Urine Protein Urine Glucose (UA) Urine Ketones Urine Blood Urine Nitrite Ur Leukocyte Esterase Urine RBC Urine WBC Ur Squamous Epith Cells Urine Bacteria Urine Mucus COVID-19 (MIKAELA) COVID-19 Clin Com 02/02/22 02/02/22 02/02/22 05:41 05:41 05:41 MCV MCH MCHC RDW Plt Count MPV Immature Gran % (Auto) Neut % (Auto) Lymph % (Auto) [facility] % (Auto) Eos % (Auto) Baso % (Auto) Lymph # (Auto) [facility] # (Auto) Eos # (Auto) Baso # (Auto) Abs Immat Gran (auto) Absolute Neuts (auto) Absolute Nucleated RBC Nucleated RBC % (auto) Smear Tech's Comments Anion Gap Estim Creat Clear Calc Estimated GFR POC Glucose Random Glucose Insulin Level 26 Proinsulin Cancelled C-Peptide Cancelled Lactic Acid Calcium Magnesium 1.7 Total Bilirubin Direct Bilirubin AST ALT Alkaline Phosphatase Troponin I High Sens B-Natriuretic Peptide Total Protein Albumin Lipase TSH Urine Color Urine Appearance Urine pH Ur Specific [place] Urine Protein Urine Glucose (UA) Urine Ketones Urine Blood Urine Nitrite Ur Leukocyte Esterase Urine RBC Urine WBC Ur Squamous Epith Cells Urine Bacteria Urine Mucus COVID-19 (MIKAELA) COVID-19 Clin Com 02/02/22 02/02/22 02/02/22 05:42 06:03 07:30 MCV 92.8 MCH 30.7 MCHC 33.1 RDW 13.2 Plt Count TNP MPV 9.2 L Immature Gran % (Auto) 0.4 Neut % (Auto) 94.9 H Lymph % (Auto) 1.[address] [facility] % (Auto) 3.1 Eos % (Auto) 0.0 Baso % (Auto) 0.0 Lymph # (Auto) 0.[address] [facility] # (Auto) 0.4 Eos # (Auto) 0.0 Baso # (Auto) 0.0 Abs Immat Gran (auto) 0.05 H Absolute Neuts (auto) 11.2 H Absolute Nucleated RBC 0.000 Nucleated RBC % (auto) 0.0 Smear Tech's Comments VERIFIED Anion Gap Estim Creat Clear Calc Estimated GFR POC Glucose 63 69 Random Glucose Insulin Level Proinsulin C-Peptide Lactic Acid Calcium Magnesium Total Bilirubin Direct Bilirubin AST ALT Alkaline Phosphatase Troponin I High Sens B-Natriuretic Peptide Total Protein Albumin Lipase TSH Urine Color Urine Appearance Urine pH Ur Specific [place] Urine Protein Urine Glucose (UA) Urine Ketones Urine Blood Urine Nitrite Ur Leukocyte Esterase Urine RBC Urine WBC Ur Squamous Epith Cells Urine Bacteria Urine Mucus COVID-19 (MIKAELA) COVID-19 Clin Com 02/02/22 02/02/22 08:04 08:35 MCV MCH MCHC RDW Plt Count MPV Immature Gran % (Auto) Neut % (Auto) Lymph % (Auto) [facility] % (Auto) Eos % (Auto) Baso % (Auto) Lymph # (Auto) [facility] # (Auto) Eos # (Auto) Baso # (Auto) Abs Immat Gran (auto) Absolute Neuts (auto) Absolute Nucleated RBC Nucleated RBC % (auto) Smear Tech's Comments Anion Gap Estim Creat Clear Calc Estimated GFR POC Glucose 72 84 Random Glucose Insulin Level Proinsulin C-Peptide Lactic Acid Calcium Magnesium Total Bilirubin Direct Bilirubin AST ALT Alkaline Phosphatase Troponin I High Sens B-Natriuretic Peptide Total Protein Albumin Lipase TSH Urine Color Urine Appearance Urine pH Ur Specific [place] Urine Protein Urine Glucose (UA) Urine Ketones Urine Blood Urine Nitrite Ur Leukocyte Esterase Urine RBC Urine WBC Ur Squamous Epith Cells Urine Bacteria Urine Mucus COVID-19 (MIKAELA) COVID-19 Clin Com Assessment and Plan (1) AMS (altered mental status): Status: Acute (2) UTI (urinary tract infection): Status: Acute (3) Hypoglycemia: Status: Acute Plan 82-year-old male with a past medical history hypertension, hyperlipidemia, BPH, CKD, history of kidney transplant, dry eye syndrome, vitamin-D deficiency, dysphagia, spinal stenosis, right arm AV fistula, CAD, hyperparathyroidism, macular degeneration, squamous cell carcinoma of the trunk, basal cell carcinoma of the skin of left ear, varicose veins, dementia, skilled nursing resident presented to the hospital today with a chief complaint of altered mental status/ hypoglycemia.? ? Altered mental status: Likely toxic metabolic encephalopathy from hypoglycemia. He is back to baseline Hypoglycemia:? Patient had recurrent hypoglycemia.? Unclear etiology. ?continue hypoglycemia protocol.? Continue D10 IV? continuously --increase rate to 100 cc/hr .? Q1-2Hr POC glucose checks. Seizure precautions. checking hypoglycemia panel, insulin, proinsulin, beta hydroxybutyrate, C-peptide. Endocrine follow-up on outpatient basis if this doesn't resolved UTI: Ceftriaxone, follow culture? Urinary retention:? Patient had urinary retention about 1200 cc.? George catheter placed.? Likely in the setting of UTI.? Will also consult Urology. DEMETRIUS on CKD s/p renal transplant, Creatine is down to normal with IVF. Continue immunosupresives (mycophenolate, cyclosporine), nephro to follow History of BPH:? Continue home dutasteride, Flomax. history of dementia with behavioral disturbances: Continue home escitalopram, lamotrigine, trazodone History of hypertension:? Continue home losartan, verapamil DVT prophylaxis:? Subcu heparin Code status:? DNR / DNI.? Patient has molst form. Inpatient need:severe hypoglycemia needing continuing glucose infusion and frequent check Quality Stroke Does the patient have a stroke diagnosis?: No VTE Prior VTE?: No VTE Risk Level:: Medical - moderate - high VTE Device Contraindication: Treatment Not Indicated VTE Drug Contraindication: N/A - Med Ordered
[2022-02-02] MEDS: Glucose Gel 15 GM GEL..GRAM. PO (11:32)
--- NOTE | 2022-02-02 11:42 | PC.NURSE ---
sr on monitor, poc's checked frequently, last poc 64 w glucose given, pt alert, speech clerar, confused but able to follow commands, had a large bm in bedpan, no complaints, no pain, nad
--- NOTE | 2022-02-02 11:42 | MHC.CDI.CONC ---
CDI Concurrent Query Documentation Clarification: PHYSICIAN'S DOCUMENTATION REQUEST Date of Query: 02/02/22 1142 Patient Name: Paresh Traylor Admit Date: 02/01/22 Dear Doctor, A review of the medical record indicates additional documentation may be needed. Please review below and update the documentation accordingly. Clinical Indicators: Is there a diagnosis that correlates with the lab findings below: Risk Factors/Clinical Indicators/Treatments LABS: magnesium 1.5 L Ed - IV Magnesium sulfate. Based on the above, could you clarify in the Progress Notes the appropriate diagnosis, if significant, that supports the above abnormalities and additional evaluation, monitoring, and/or treatment rendered: Hypomagnesemia or other etiology of lab findings Labs indicate a diagnosis of (please specify) Other (please specify) Unable to determine Use of terms such as suspected, likely, concern for, or probable (associated with a specific diagnosis that is being evaluated, monitored, or treated as if it exists) are acceptable and can be coded in the inpatient setting, when documented at the time of discharge. Thank you, Loyda Bah [facility], [facility] Extension: [phone] Please use your independent medical judgment in providing your response. THIS QUERY IS PART OF THE PERMANENT MEDICAL RECORD Provider Response: Other Other Diagnosis: hypomagnesemia
--- NOTE | 2022-02-02 12:01 | PC.NURSE ---
Before [facility] to overflow area pt's POC in 60s. Given glucose gel po. Will continue frequent POC checks. D10 continues running.
[2022-02-02 12:49] LABS: Glucose, Whole Blood 88 mg/dL (60-115)
[2022-02-02 13:24] LABS: Glucose, Whole Blood 95 mg/dL (60-115)
[2022-02-02 13:39] LABS: Glucose, Whole Blood 77 mg/dL (60-115)
[2022-02-02 13:39] LABS: Glucose, Whole Blood 64 mg/dL (60-115)
[2022-02-02 15:36] LABS: Glucose, Whole Blood 115 mg/dL (60-115)
[2022-02-02 16:47] LABS: Glucose, Whole Blood 132 mg/dL (60-115)
--- NOTE | 2022-02-02 16:59 | HE.PHANOTE ---
CYCLOSPORINE PT OWN med label generated. Sent down to ED OVER to be given to nurse
[2022-02-02] MEDS: Tamsulosin HCL 0.4 MG CAPSULE 0.8 MG PO (17:42)
[2022-02-02] MEDS: traZODone HCL 100 MG TABLET PO (17:43)
[2022-02-02 19:48] LABS: Glucose, Whole Blood 124 mg/dL (60-115)
[2022-02-02] MEDS: traMADoL HCL 50 MG TABLET PO (22:36)
[2022-02-02] MEDS: Dextrose 10 % 1,000 ML 75 ML IVCONT (22:36)
[2022-02-03] VITALS (7 sets, daily range): BP systolic 115–162; BP diastolic 55–68; PULSE 76–94; RESP 18–20; TEMP 36.1–37.2; O2SAT 95–100
[2022-02-03 00:47] LABS: Glucose, Whole Blood 172 mg/dL (60-115)
[2022-02-03 04:26] LABS: Glucose, Whole Blood 136 mg/dL (60-115)
[2022-02-03] MEDS: cefTRIAXone sodium 1 GM in 0.9 % Sodium Chloride 50 ML IV (06:36)
[2022-02-03 07:33] LABS: Glucose, Whole Blood 127 mg/dL (60-115)
[2022-02-03] MEDS: lamoTRIgine 25 MG TABLET 250 MG PO (08:08)
[2022-02-03] MEDS: Heparin Sodium,Porcine 5,000 UNIT/ML VIAL 5000 UNIT SUBCUT ×2 (08:08→15:59)
[2022-02-03] MEDS: calcitrioL 0.25 MCG CAPSULE PO (08:08)
[2022-02-03] MEDS: VerapamiL HCL SR 240 MG TABLET.ER PO (08:09)
[2022-02-03] MEDS: Cyanocobalamin (Vitamin B-12) 1,000 MCG TABLET 1000 MCG PO (08:09)
[2022-02-03] MEDS: Aspirin Enteric Coated 81 MG TABLET.DR PO (08:09)
[2022-02-03] MEDS: Escitalopram Oxalate 20 MG TABLET PO (08:09)
[2022-02-03] MEDS: Cinacalcet HCl 30 MG TABLET PO (08:09)
[2022-02-03] MEDS: buPROPion HCl XL 300 MG TAB.ER.24H PO (08:09)
[2022-02-03] MEDS: Losartan Potassium 50 MG TABLET PO (08:09)
[2022-02-03] MEDS: mycophenolate mofetiL 250 MG CAPSULE 500 MG PO ×2 (08:16→17:35)
[2022-02-03] MEDS: Dextrose 10 % 1,000 ML 100 ML IVCONT (09:56)
[2022-02-03 10:08] LABS: Anion Gap 13 (12-20); Blood Urea Nitrogen 31 mg/dL (9-16); Calcium 8.4 mg/dL (8.4-10.2); Carbon Dioxide 22 mmol/L (22-29); Chloride 101 mmol/L (96-108); Creatinine Clr Calc Pharmacy 35.5; Estimated Glomerular Filt Rate 46; Glucose Random 130 mg/dL (60-115); Potassium 4.3 mmol/L (3.3-5.1); Sodium 132 mmol/L (135-145)
--- NOTE | 2022-02-03 10:54 | PM.PNNEP ---
Subjective Subjective Date of Service: 02/03/22 Interval history: Seen and examined, events noted Physical Exam Vital Signs: Vital Signs: Last Vital Signs Temp 97.6 F 02/03/22 08:00 Pulse 80 02/03/22 08:00 Resp 20 02/03/22 08:00 BP 162/68 H 02/03/22 08:00 Pulse Ox 95 02/03/22 08:00 O2 Del Method 02/03/22 08:00 BMI result Body Mass Index 26.4 HEENT: Head: Yes normal to inspection Chest: Chest palpation & inspection: normal inspection of the chest Resp: Effort & Inspection: normal respiratory effort and able to speak in complete sentences Objective Data Labs CBC & Chem 7: 02/02/22 05:42 02/03/22 09:37 Labs: Laboratory Results - last 24 hr 02/02/22 02/02/22 02/02/22 09:39 11:28 12:16 Sodium Potassium Chloride Carbon Dioxide Anion Gap BUN Creatinine Estim Creat Clear Calc Estimated GFR POC Glucose 77 64 88 Random Glucose Calcium 02/02/22 02/02/22 02/02/22 13:16 15:16 16:40 Sodium Potassium Chloride Carbon Dioxide Anion Gap BUN Creatinine Estim Creat Clear Calc Estimated GFR POC Glucose 95 115 132 H Random Glucose Calcium 02/02/22 02/03/22 02/03/22 19:42 00:32 04:16 Sodium Potassium Chloride Carbon Dioxide Anion Gap BUN Creatinine Estim Creat Clear Calc Estimated GFR POC Glucose 124 H 172 H 136 H Random Glucose Calcium 02/03/22 02/03/22 07:14 09:37 Sodium 132 L Potassium 4.3 Chloride 101 Carbon Dioxide 22 Anion Gap 13 BUN 31 H Creatinine 1.47 H Estim Creat Clear Calc 35.5 Estimated GFR 46 POC Glucose 127 H Random Glucose 130 H D Calcium 8.4 Microbiology Microbiology Results: Microbiology 02/02/22 Unknown Urine Catheterized - Straight Catheter Urine Culture - Preliminary Culture in progress. 02/01/22 19:30 Blood - Venous Blood Culture - Preliminary No growth after 24 hours. 02/01/22 19:30 Blood - Venous Blood Culture - Preliminary No growth after 24 hours. Procedures Date of Service Date of Service: 02/03/22 Assessment & Plan Assessment and plan (1) AMS (altered mental status): Status: Acute (2) UTI (urinary tract infection): Status: Acute (3) Hypoglycemia: Status: Acute Plan 1. CKD 3: Scr stable 2. 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 Unexplaoined Hypogycemia: w/u in progress and r/o insulinoma 5. Anemia 6. HTN: subopt control REC: check Fe evels; cont CSA and cellcept; check C-pep; check Phos and PTH evel; incr cozaar 100 qd Will follow w tram Time Spent With Patient Time: Total time spent is greater than 50% in coordination of care (as documented) at patient's floor/unit and/or counseling patient: Progress Note: Quality Stroke Does the patient have a stroke diagnosis?: No
[2022-02-03 11:24] LABS: Iron 159 mcg/dL (45-160); Percent Iron Saturation 67 % (15-50); Phosphorus 3.6 mg/dL (2.7-4.5); Total Iron Binding Capacity 236 mcg/dL (228-428); Unsaturated Iron Binding 77 ug/dL
[2022-02-03 11:27] LABS: Glucose, Whole Blood 157 mg/dL (60-115)
[2022-02-03 11:49] LABS: Ferritin 359 ng/mL (20-250)
--- NOTE | 2022-02-03 14:22 | P.PNIM_ITS ---
Subjective Subjective Date of Service: 02/03/22 Interval History: hypoglycemia,uti,right eye seems sticky dry -mild muciod discharge. Review of Systems no confusion denies any chest pain Physical Exam Vital Signs: Vital Signs: Last Vital Signs Temp 97.7 F 02/03/22 11:54 Pulse 83 02/03/22 11:54 Resp 20 02/03/22 11:54 BP 121/55 L 02/03/22 11:54 Pulse Ox 99 02/03/22 11:54 O2 Del Method 02/03/22 11:54 BMI result Body Mass Index 26.4 General: AO X 3, no acute distress Resp:? CTA bilateral CVS: S1,S2,RRR GI: +BS, NT, no distention Skin: No rash Neuro:? motor grossly intact Psych: appropriate affect Objective Data Active Medications Acetaminophen (Acetaminophen 325 Mg Tablet) 650 mg PO Q6H PRN PRN Reason: Pain, Mild (Pain Scale 1-3) Artificial Tears (Artificial Tears 15 Ml Drops) 1 drop EYE-BOTH BID@09,1830 PRN PRN Reason: Dry Eye(S) Artificial Tears (Artificial Tears 15 Ml Drops) 1 drop EYE-BOTH Q4H PRN PRN Reason: dry eyes Aspirin (Aspirin Enteric Coated 81 Mg Tablet.) 81 mg PO DAILY [facility] Last Admin: 02/03/22 08:09 Dose: 81 mg Documented By: JESSIKA-ALVAREZ Bupropion HCl (Bupropion Hcl Xl 300 Mg Tab.Er.24h) 300 mg PO DAILY [facility] Last Admin: 02/03/22 08:09 Dose: 300 mg Documented By: JESSIKA-ALVAREZ Calcitriol (Calcitriol 0.25 Mcg Capsule) 0.25 mcg PO DAILY [facility] Last Admin: 02/03/22 08:08 Dose: 0.25 mcg Documented By: JESSIKA-ALVAREZ Cinacalcet (Cinacalcet Hcl 30 Mg Tablet) 30 mg PO DAILY [facility] Last Admin: 02/03/22 08:09 Dose: 30 mg Documented By: JESSIKA-ALVAREZ Cyanocobalamin (Cyanocobalamin (Vitamin B-12) 1,000 Mcg Tablet) 1,000 mcg PO DAILY [facility] Last Admin: 02/03/22 08:09 Dose: 1,000 mcg Documented By: JESSIKA-MARIAMAFA Dextrose (Dextrose 50 % 25 Gm/50 Ml Syringe) 25 gm IVPUSH Q15M PRN; Protocol PRN Reason: per Hypoglycemia Standing Ord. Last Admin: 02/01/22 23:54 Dose: 25 gm Documented By: JUAN Escitalopram Oxalate (Escitalopram Oxalate 20 Mg Tablet) 20 mg PO DAILY [facility] Last Admin: 02/03/22 08:09 Dose: 20 mg Documented By: SUSHIL Glucose (Glucose Gel 15 Gm Gel..Gram.) 15 gm PO Q15M PRN; Protocol PRN Reason: per Hypoglycemia Standing Ord. Last Admin: 02/02/22 11:32 Dose: 15 gm Documented By: GWYN Heparin Sodium (Porcine) (Heparin Sodium,Porcine 5,000 Unit/Ml Vial) 5,000 unit SUBCUT Q8H [facility] Last Admin: 02/03/22 08:08 Dose: 5,000 unit Documented By: SUSHIL Hydromorphone HCl (Hydromorphone Hcl 0.5 Mg/0.5 Ml Syringe) 0.5 mg IVPUSH Q4H PRN; Protocol PRN Reason: Pain, Severe (Pain Scale 7-10) Dextrose (D10) 1,000 mls @ 50 mls/hr IVCONT .Q20H [facility] Last Infusion: 02/03/22 12:34 Dose: 50 mls/hr Documented By: SUSHIL Ceftriaxone Sodium 1 gm/ (Sodium Chloride) 50 mls @ 100 mls/hr IV DAILY@0600 [facility] Last Infusion: 02/03/22 07:08 Dose: 0 mls/hr Documented By: SUSHIL Lamotrigine (Lamotrigine 25 Mg Tablet) 250 mg PO DAILY [facility] Last Admin: 02/03/22 08:08 Dose: 250 mg Documented By: SUSHIL Losartan Potassium (Losartan Potassium 50 Mg Tablet) 50 mg PO DAILY [facility]; Protocol Last Admin: 02/03/22 08:09 Dose: 50 mg Documented By: SUSHIL Melatonin (Melatonin 3 Mg Tablet) 6 mg PO BEDTIME PRN PRN Reason: Insomnia Mycophenolate Mofetil (Mycophenolate Mofetil 250 Mg Capsule) 500 mg PO BID@1830 [facility] Last Admin: 02/03/22 08:16 Dose: 500 mg Documented By: SUSHIL Non-Formulary Medication (Dutasteride) 1 cap PO DAILY [facility] Pt Own (Cyclosporine 100 Mg Capsules Alf Modified) 100 each PO BID@ [facility] Last Admin: 02/03/22 09:56 Dose: 100 each Documented By: SUSHIL Pharmacy Consult (Consult Rx Perform Med Rec) 1 each MISCELLANE ONCE PRN PRN Reason: Consult order Senna (Sennosides 8.6 Mg Tablet) 17.2 mg PO BEDTIME PRN PRN Reason: Constipation Sodium Chloride (0.9 % Sodium Chloride Flush 3 Ml Syringe) 3 ml IVFLUSH QSHIFT [facility] Last Admin: 02/03/22 07:00 Dose: Not Given Documented By: SUSHIL Non-Admin Reason: assessed Tamsulosin HCl (Tamsulosin Hcl 0.4 Mg Capsule) 0.8 mg PO DAILY@1829 [facility] Last Admin: 02/02/22 17:42 Dose: 0.8 mg Documented By: GWYN Tramadol HCl (Tramadol Hcl 50 Mg Tablet) 50 mg PO BEDTIME [facility] Last Admin: 02/02/22 22:36 Dose: 50 mg Documented By: JARED Trazodone HCl (Trazodone Hcl 100 Mg Tablet) 100 mg PO DAILY@1829 [facility] Last Admin: 02/02/22 17:43 Dose: 100 mg Documented By: GWYN Verapamil HCl (Verapamil Hcl Sr 240 Mg Tablet.Er) 240 mg PO DAILY [facility]; Protocol Last Admin: 02/03/22 08:09 Dose: 240 mg Documented By: SUSHIL Labs CBC & Chem 7: 02/02/22 05:42 02/03/22 09:37 Labs: Laboratory Results - last 24 hr 02/02/22 02/02/22 02/02/22 15:16 16:40 19:42 Anion Gap Estim Creat Clear Calc Estimated GFR POC Glucose 115 132 H 124 H Random Glucose Calcium Phosphorus Iron TIBC % Saturation Unsat Iron Binding Ferritin 02/03/22 02/03/22 02/03/22 00:32 04:16 07:14 Anion Gap Estim Creat Clear Calc Estimated GFR POC Glucose 172 H 136 H 127 H Random Glucose Calcium Phosphorus Iron TIBC % Saturation Unsat Iron Binding Ferritin 02/03/22 02/03/22 09:37 11:21 Anion Gap 13 Estim Creat Clear Calc 35.5 Estimated GFR 46 POC Glucose 157 H Random Glucose 130 H D Calcium 8.4 Phosphorus 3.6 Iron 159 TIBC 236 % Saturation 67 H Unsat Iron Binding 77 Ferritin 359 H Microbiology Microbiology Results: Microbiology 02/02/22 Unknown Urine Culture - Preliminary Urine Catheterized - Straight Catheter Culture in progress. 02/01/22 19:30 Blood Culture - Preliminary Blood - Venous No growth after 24 hours. 02/01/22 19:30 Blood Culture - Preliminary Blood - Venous No growth after 24 hours. Assessment and Plan (1) AMS (altered mental status): Status: Acute (2) UTI (urinary tract infection): Status: Acute (3) Hypoglycemia: Status: Acute Plan 82-year-old male with a past medical history hypertension, hyperlipidemia, BPH, CKD, history of kidney transplant, dry eye syndrome, vitamin-D deficiency, dy sphagia, spinal stenosis, right arm AV fistula, CAD, hyperparathyroidism, macular degeneration, squamous cell carcinoma of the trunk, basal cell carcinoma of the skin of left ear, varicose veins, dementia, [facility] resident presented to the hospital today with a chief complaint of altered mental status/ hypoglycemia.? ? Altered mental status: Likely toxic metabolic encephalopathy from hypoglycemia. He is back to baseline Hypoglycemia:? Patient had recurrent hypoglycemia.? Unclear etiology. ?continue hypoglycemia protocol.? ? Q1-2Hr POC glucose checks. Seizure precautions. checking hypoglycemia panel, insulin, proinsulin, beta hydroxybutyrate, C- peptide.Hba1c levels the thought of 3 need to discuss about the patient, kindly call me at [phone]. Thanks Mary Aquino MD. Omer Mascorro MD. Continue D10 IV? continuously- fs running 120-150 range , po intake still not adequate - Encouraged for p.o. intake, degrees D10 rate to 50 cc/hour. Endocrine follow-up on outpatient basis if this doesn't resolved UTI: Ceftriaxone, follow culture? Urinary retention:? Patient had urinary retention about 1200 cc.? George catheter placed.? Likely in the setting of UTI.? Will also consult Urology. DEMETRIUS on CKD s/p renal transplant, Creatine is down to normal with IVF. Continue immunosupresives (mycophenolate, cyclosporine), nephro to follow History of BPH:? Continue home dutasteride, Flomax. history of dementia with behavioral disturbances: Continue home escitalopram, lamotrigine, trazodone History of hypertension:? Continue home losartan, verapamil DVT prophylaxis:? Subcu heparin Code status:? DNR / DNI.? Patient has molst form. Inpatient need:severe hypoglycemia needing continuing glucose infusion and frequent monitering Quality Stroke Does the patient have a stroke diagnosis?: No VTE Prior VTE?: No VTE Risk Level:: Medical - moderate - high VTE Device Contraindication: Treatment Not Indicated VTE Drug Contraindication: N/A - Med Ordered
[2022-02-03 17:13] LABS: Glucose, Whole Blood 154 mg/dL (60-115)
[2022-02-03] MEDS: traZODone HCL 100 MG TABLET PO (17:36)
[2022-02-03] MEDS: Tamsulosin HCL 0.4 MG CAPSULE 0.8 MG PO (17:36)
[2022-02-03 20:45] LABS: Glucose, Whole Blood 142 mg/dL (60-115)
[2022-02-03] MEDS: 0.9 % Sodium Chloride Flush 3 ML SYRINGE IVFLUSH (21:26)
[2022-02-03] MEDS: traMADoL HCL 50 MG TABLET PO (21:26)
--- NOTE | 2022-02-03 23:10 | CONS_ITS ---
DATE OF SERVICE: 02/02/2022 HISTORY OF PRESENT ILLNESS: I was asked to see patient to assist in evaluation and management of patient's immunosuppressive therapy and renal insufficiency as noted by creatinine 1.6. The patient was transplanted many years ago in [place] and has apparently relocated to this area. We are trying to get old records to sort things out, but he again states he was transplanted many years ago. He is maintained on a combination of cyclosporine and CellCept. The patient is a poor historian. Information was obtained from the electronic medical record. In summary, this 82-year-old gentleman as mentioned with a history of hypertension; hyperlipidemia; BPH; stage 3 chronic kidney disease; history of a kidney transplant many years ago, maintained on cyclosporine and CellCept; spinal stenosis; coronary artery disease; macular degeneration; squamous cell cancer of the trunk; and dementia, apparently in a shelter now and was transferred over to the hospital because of altered mental status and noted to be hypoglycemic, although he is not on any diabetic-type medications and apparently, does not have a history of diabetes. In the emergency room again, he was noted to have sugars as low in the 40s and was started on D10W. PAST MEDICAL HISTORY: As outlined above. MEDICATIONS: His medications on admission are noted in the admitting notes and do not include any diabetic-type medications. He is maintained on cyclosporine 100 mg twice a day and CellCept 500 mg twice a day. He is also maintained on both calcitriol and Sensipar. ALLERGIES: HE HAS NO KNOWN DRUG ALLERGIES. SOCIAL HISTORY: He is a nonsmoker, nondrinker. No illicit drug use. REVIEW OF SYSTEMS: As noted above. PHYSICAL EXAMINATION: VITAL SIGNS: Blood pressure of 170/60 with a heart rate in the 70s. HEENT: Head is atraumatic and normocephalic. Mucous membranes are moist NECK: Supple. LUNGS: Breath sounds bilaterally. CARDIAC: Regular rate and rhythm. ABDOMEN: Soft. EXTREMITIES: Show no edema. LABORATORY DATA: Show hemoglobin 8.9, hematocrit 26.9, white blood cell count 11.8, and platelet count 236. Sodium 133, potassium 4.5, BUN 43, and creatinine 1.50, was 1.60 on the 24th. Calcium 8.4. Urine studies showed no protein or glucose in the urine. IMPRESSION: AN 82-YEAR-OLD KIDNEY TRANSPLANT PATIENT ADMITTED TO THE HOSPITAL WITH SYMPTOMATIC HYPOGLYCEMIA DESPITE NOT BEING ON ANY DIABETIC MEDICATIONS. 1. Unexplained hypoglycemia. The patient is having workup to rule out an insulinoma. He is being continued on some dextrose in the form of IV dextrose for now. 2. Stage 3 chronic kidney disease. It is unclear what his initial kidney disease was. Now, he is apparently a kidney transplant patient maintained on a combination of cyclosporine and CellCept. 3. History of secondary hyperparathyroidism, maintained on both calcitriol and Sensipar. 4. Anemia. Rule out iron deficiency. May be a candidate for iron as well as EPO at some point. SUGGESTIONS: At this time include continue workup of the etiology for his unexplained symptomatic hypoglycemia. Continue him on cyclosporine and CellCept. Follow urine output and renal function. We will check a serum phosphorus level as well as an intact PTH. We will follow the patient with the team. MD CAN Ramsey/RUDDY / [phone]
[2022-02-04 00:26] LABS: Glucose, Whole Blood 134 mg/dL (60-115)
[2022-02-04] MEDS: Heparin Sodium,Porcine 5,000 UNIT/ML VIAL 5000 UNIT SUBCUT ×4 (02:12→20:00)
[2022-02-04 04:00] VITALS: BP 165/67; PULSE 84; RESP 18; TEMP 36.4; O2SAT 99
[2022-02-04 05:02] LABS: Glucose, Whole Blood 120 mg/dL (60-115)
[2022-02-04] MEDS: cefTRIAXone sodium 1 GM in 0.9 % Sodium Chloride 50 ML IV (06:40)
[2022-02-04 07:40] VITALS: BP 160/74; PULSE 80; RESP 20; TEMP 36.5; O2SAT 100
[2022-02-04 07:51] LABS: Glucose, Whole Blood 109 mg/dL (60-115)
[2022-02-04 07:59] LABS: Estimated Average Glucose 91 mg/dL; Hemoglobin A1c % 4.8 %
[2022-02-04 08:10] LABS: Anion Gap 12 (12-20); Blood Urea Nitrogen 41 mg/dL (9-16); Calcium 8.1 mg/dL (8.4-10.2); Carbon Dioxide 22 mmol/L (22-29); Chloride 105 mmol/L (96-108); Creatinine Clr Calc Pharmacy 29.2; Estimated Glomerular Filt Rate 36; Glucose Random 125 mg/dL (60-115); Potassium 4.5 mmol/L (3.3-5.1); Sodium 134 mmol/L (135-145)
[2022-02-04] MEDS: lamoTRIgine 25 MG TABLET 250 MG PO (08:29)
[2022-02-04] MEDS: calcitrioL 0.25 MCG CAPSULE PO (08:29)
[2022-02-04] MEDS: Cinacalcet HCl 30 MG TABLET PO (08:29)
[2022-02-04] MEDS: Aspirin Enteric Coated 81 MG TABLET.DR PO (08:29)
[2022-02-04] MEDS: buPROPion HCl XL 300 MG TAB.ER.24H PO (08:29)
[2022-02-04] MEDS: Cyanocobalamin (Vitamin B-12) 1,000 MCG TABLET 1000 MCG PO (08:29)
[2022-02-04] MEDS: Losartan Potassium 50 MG TABLET PO (08:29)
[2022-02-04] MEDS: Escitalopram Oxalate 20 MG TABLET PO (08:29)
[2022-02-04] MEDS: VerapamiL HCL SR 240 MG TABLET.ER PO (08:29)
[2022-02-04] MEDS: 0.9 % Sodium Chloride Flush 3 ML SYRINGE IVFLUSH ×3 (08:30→20:01)
[2022-02-04] MEDS: mycophenolate mofetiL 250 MG CAPSULE 500 MG PO ×2 (08:35→17:23)
[2022-02-04] MEDS: hydrALAZINE HCl 25 MG TABLET PO ×2 (08:51→20:00)
[2022-02-04] MEDS: Acetaminophen 325 MG TABLET 650 MG PO (08:52)
--- NOTE | 2022-02-04 09:00 | P.CDIC_ITS ---
CDI Concurrent Query Documentation Clarification: PHYSICIAN'S DOCUMENTATION REQUEST Date of Query: 02/04/22 0901 Patient Name: Paresh Traylor Admit Date: 02/01/22 Dear Doctor, A review of the medical record indicates additional documentation may be needed. Please review below and update the documentation accordingly. Clinical Indicators: Risk Factors/Clinical Indicators/Treatments Progress notes - History of Dementia with behavioral disturbances, Altered mental status, alert and oriented x2, pleasantly confused. Continue esicitalopram, lamotrigine, trazodone. If possible, please further clarify type of Dementia and any associated manifestations: Disease Type: Dementia Vascular, Alzheimers, Senile etc. * Unable to determine Associated Manifestations: * Dementia without behavioral disturbance * Dementia with behavioral disturbance * No associated manifestations * Other ? please specify * Unable to determine Use of terms such as suspected, likely, concern for, or probable (associated with a specific diagnosis that is being evaluated, monitored, or treated as if it exists) are acceptable and can be coded in the inpatient setting, when documented at the time of discharge. Thank you, Loyda Bah [facility], CDIS Extension: [phone] Please use your independent medical judgment in providing your response. THIS QUERY IS PART OF THE PERMANENT MEDICAL RECORD Provider Response: Other Other Diagnosis: dementia with behavioral disturbances
[2022-02-04 11:40] VITALS: BP 126/63; PULSE 88; RESP 20; TEMP 36.6; O2SAT 99
[2022-02-04 11:56] LABS: Glucose, Whole Blood 121 mg/dL (60-115)
--- NOTE | 2022-02-04 14:51 | HO.PM.IMPN ---
Subjective Subjective Date of Service: 02/04/22 Interval History: hypoglycemia,uti,right? eye seems sticky dry -mild muciod discharge. Review of Systems denies any chest pain or shortness of breath or abdominal pain or fever or chills or cough or phlegm. Physical Exam Vital Signs: Vital Signs: Last Vital Signs Temp 97.9 F 02/04/22 11:40 Pulse 88 02/04/22 11:40 Resp 20 02/04/22 11:40 BP 126/63 02/04/22 11:40 Pulse Ox 99 02/04/22 11:40 O2 Del Method 02/04/22 11:40 BMI result Body Mass Index 26.4 General: AO X 3, no acute distress Resp:? CTA bilateral CVS: S1,S2,RRR GI: +BS, NT, no distention Skin: No rash Neuro:? motor grossly intact Psych: appropriate affect Objective Data Active Medications Acetaminophen (Acetaminophen 325 Mg Tablet) 650 mg PO Q6H PRN PRN Reason: Pain, Mild (Pain Scale 1-3) Last Admin: 02/04/22 08:52 Dose: 650 mg Documented By: NEYDA Artificial Tears (Artificial Tears 15 Ml Drops) 1 drop EYE-BOTH BID@09,1830 PRN PRN Reason: Dry Eye(S) Artificial Tears (Artificial Tears 15 Ml Drops) 1 drop EYE-BOTH Q4H PRN PRN Reason: dry eyes Aspirin (Aspirin Enteric Coated 81 Mg Tablet.Dr) 81 mg PO DAILY [facility] Last Admin: 02/04/22 08:29 Dose: 81 mg Documented By: NEYDA Bupropion HCl (Bupropion Hcl Xl 300 Mg Tab.Er.24h) 300 mg PO DAILY [facility] Last Admin: 02/04/22 08:29 Dose: 300 mg Documented By: NEYDA Calcitriol (Calcitriol 0.25 Mcg Capsule) 0.25 mcg PO DAILY [facility] Last Admin: 02/04/22 08:29 Dose: 0.25 mcg Documented By: NEYDA Cinacalcet (Cinacalcet Hcl 30 Mg Tablet) 30 mg PO DAILY [facility] Last Admin: 02/04/22 08:29 Dose: 30 mg Documented By: NEYDA Cyanocobalamin (Cyanocobalamin (Vitamin B-12) 1,000 Mcg Tablet) 1,000 mcg PO DAILY [facility] Last Admin: 02/04/22 08:29 Dose: 1,000 mcg Documented By: NEYDA Dextrose (Dextrose 50 % 25 Gm/50 Ml Syringe) 25 gm IVPUSH Q15M PRN; Protocol PRN Reason: per Hypoglycemia Standing Ord. Last Admin: 02/01/22 23:54 Dose: 25 gm Documented By: JUAN Escitalopram Oxalate (Escitalopram Oxalate 20 Mg Tablet) 20 mg PO DAILY [facility] Last Admin: 02/04/22 08:29 Dose: 20 mg Documented By: NEYDA Glucose (Glucose Gel 15 Gm Gel..Gram.) 15 gm PO Q15M PRN; Protocol PRN Reason: per Hypoglycemia Standing Ord. Last Admin: 02/02/22 11:32 Dose: 15 gm Documented By: GWYN Heparin Sodium (Porcine) (Heparin Sodium,Porcine 5,000 Unit/Ml Vial) 5,000 unit SUBCUT Q8H [facility] Last Admin: 02/04/22 08:30 Dose: 5,000 unit Documented By: NEYDA Hydralazine HCl (Hydralazine Hcl 25 Mg Tablet) 25 mg PO BID [facility]; Protocol Last Admin: 02/04/22 08:51 Dose: 25 mg Documented By: NEYDA Hydromorphone HCl (Hydromorphone Hcl 0.5 Mg/0.5 Ml Syringe) 0.5 mg IVPUSH Q4H PRN; Protocol PRN Reason: Pain, Severe (Pain Scale 7-10) Ceftriaxone Sodium 1 gm/ (Sodium Chloride) 50 mls @ 100 mls/hr IV DAILY@0600 [facility] Last Infusion: 02/04/22 07:23 Dose: 0 mls/hr Documented By: NEYDA Lamotrigine (Lamotrigine 25 Mg Tablet) 250 mg PO DAILY [facility] Last Admin: 02/04/22 08:29 Dose: 250 mg Documented By: NEYDA Losartan Potassium (Losartan Potassium 50 Mg Tablet) 50 mg PO DAILY [facility]; Protocol Last Admin: 02/04/22 08:29 Dose: 50 mg Documented By: NEYDA Melatonin (Melatonin 3 Mg Tablet) 6 mg PO BEDTIME PRN PRN Reason: Insomnia Mycophenolate Mofetil (Mycophenolate Mofetil 250 Mg Capsule) 500 mg PO BID@09,1830 [facility] Last Admin: 02/04/22 08:35 Dose: 500 mg Documented By: NEYDA Non-Formulary Medication (Dutasteride) 1 cap PO DAILY [facility] Pt Own (Cyclosporine 100 Mg Capsules Nursing Home Modified) 100 each PO BID@ [facility] Last Admin: 02/04/22 08:31 Dose: 100 each Documented By: NEYDA Pharmacy Consult (Consult Rx Perform Med Rec) 1 each MISCELLANE ONCE PRN PRN Reason: Consult order Senna (Sennosides 8.6 Mg Tablet) 17.2 mg PO BEDTIME PRN PRN Reason: Constipation Sodium Chloride (0.9 % Sodium Chloride Flush 3 Ml Syringe) 3 ml IVFLUSH QSHIFT [facility] Last Admin: 02/04/22 08:30 Dose: 3 ml Documented By: NEYDA Tamsulosin HCl (Tamsulosin Hcl 0.4 Mg Capsule) 0.8 mg PO DAILY@1829 [facility] Last Admin: 02/03/22 17:36 Dose: 0.8 mg Documented By: SUSHIL Tramadol HCl (Tramadol Hcl 50 Mg Tablet) 50 mg PO BEDTIME [facility] Last Admin: 02/03/22 21:26 Dose: 50 mg Documented By: JARED Trazodone HCl (Trazodone Hcl 100 Mg Tablet) 100 mg PO DAILY@1829 [facility] Last Admin: 02/03/22 17:36 Dose: 100 mg Documented By: SUSHIL Verapamil HCl (Verapamil Hcl Sr 240 Mg Tablet.Er) 240 mg PO DAILY [facility]; Protocol Last Admin: 02/04/22 08:29 Dose: 240 mg Documented By: NEYDA Labs CBC & Chem 7: 02/02/22 05:42 02/04/22 06:18 Labs: Laboratory Results - last 24 hr 02/03/22 02/03/22 02/04/22 17:09 20:38 00:22 Anion Gap Estim Creat Clear Calc Estimated GFR POC Glucose 154 H 142 H 134 H Random Glucose Estimat Average Glucose Hemoglobin A1c % Calcium 02/04/22 02/04/22 02/04/22 04:56 06:18 06:18 Anion Gap 12 Estim Creat Clear Calc 29.2 Estimated GFR 36 POC Glucose 120 H Random Glucose 125 H Estimat Average Glucose 91 Hemoglobin A1c % 4.8 Calcium 8.1 L 02/04/22 02/04/22 07:43 11:52 Anion Gap Estim Creat Clear Calc Estimated GFR POC Glucose 109 121 H Random Glucose Estimat Average Glucose Hemoglobin A1c % Calcium Microbiology Microbiology Results: Microbiology 02/02/22 Unknown Urine Culture - Preliminary Urine Catheterized - Straight Catheter Gram negative rosa 02/01/22 19:30 Blood Culture - Preliminary Blood - Venous No growth after 48 hours. 02/01/22 19:30 Blood Culture - Preliminary Blood - Venous No growth after 48 hours. Assessment and Plan (1) Hypoglycemia: Status: Acute Plan 82-year-old male with a past medical history hypertension, hyperlipidemia, BPH, CKD, history of kidney transplant, dry eye syndrome, vitamin-D deficiency, dysphagia, spinal stenosis, right arm AV fistula, CAD, hyperparathyroidism, macular degeneration, squamous cell carcinoma of the trunk, 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 varicose veins, dementia, retirement resident presented to the hospital today with a chief complaint of altered mental status/ hypoglycemia.? ? Altered mental status: Likely toxic metabolic encephalopathy from hypoglycemia. He is back to baseline Hypoglycemia:? Patient had recurrent hypoglycemia.? Unclear etiology. ?continue hypoglycemia protocol.? POC glucose checks. Seizure precautions. checking hypoglycemia panel, insulin, proinsulin, beta hydroxybutyrate, C-peptide. Hba1c levels 4.8. Continue D10 IV? continuously- fs running 100-120range , po intake still not adequate -? Encouraged for p.o. intake,? fluids stopped Endocrine follow-up on outpatient basis if this doesn't resolved UTI: Ceftriaxone, follow culture? Urinary retention:? Patient had urinary retention about 1200 cc.? George catheter placed.? Likely in the setting of UTI.? Will also consult Urology. DEMETRIUS on CKD s/p renal transplant, Creatine is down to normal with IVF. Continue immunosupresives (mycophenolate, cyclosporine), nephro to follow History of BPH:? Continue home dutasteride, Flomax. history of dementia with behavioral disturbances: Continue home escitalopram, lamotrigine, trazodone History of hypertension:? Continue home losartan, verapamil DVT prophylaxis:? Subcu heparin Code status:? DNR / DNI.? Patient has molst form. Inpatient need:severe hypoglycemia needing continuing glucose infusion and frequent monitering Quality Stroke Does the patient have a stroke diagnosis?: No VTE Prior VTE?: No VTE Risk Level:: Medical - moderate - high VTE Device Contraindication: Treatment Not Indicated VTE Drug Contraindication: N/A - Med Ordered
--- NOTE | 2022-02-04 15:06 | MHC.CM.PN ---
Per ROUNDS discussion, patient Not medically cleared for discharge r/t severe hypoglycemia needing continued glucose infusion and frequent monitoring. [facility] updated. CM will continue to follow for D/C needs.
[2022-02-04 15:19] VITALS: BP 145/67; PULSE 87; RESP 14; TEMP 36.6; O2SAT 98
[2022-02-04 15:40] LABS: Glucose, Whole Blood 112 mg/dL (60-115)
[2022-02-04] MEDS: Tamsulosin HCL 0.4 MG CAPSULE 0.8 MG PO (17:19)
[2022-02-04] MEDS: traZODone HCL 100 MG TABLET PO (17:19)
--- NOTE | 2022-02-04 18:09 | PM.PNNEP ---
Subjective Subjective Date of Service: 02/04/22 Interval history: Seen and examined, events noted Physical Exam Vital Signs: Vital Signs: Last Vital Signs Temp 97.9 F 02/04/22 15:19 Pulse 87 02/04/22 15:19 Resp 14 02/04/22 15:19 BP 145/67 H 02/04/22 15:19 Pulse Ox 98 02/04/22 15:19 O2 Del Method 02/04/22 15:19 BMI result Body Mass Index 26.4 HEENT: Head: Yes normal to inspection Chest: Chest palpation & inspection: normal inspection of the chest Resp: Effort & Inspection: normal respiratory effort and able to speak in complete sentences Objective Data Labs CBC & Chem 7: 02/02/22 05:42 02/04/22 06:18 Labs: Laboratory Results - last 24 hr 02/03/22 02/04/22 02/04/22 20:38 00:22 04:56 Sodium Potassium Chloride Carbon Dioxide Anion Gap BUN Creatinine Estim Creat Clear Calc Estimated GFR POC Glucose 142 H 134 H 120 H Random Glucose Estimat Average Glucose Hemoglobin A1c % Calcium 02/04/22 02/04/22 02/04/22 06:18 06:18 07:43 Sodium 134 L Potassium 4.5 Chloride 105 Carbon Dioxide 22 Anion Gap 12 BUN 41 H Creatinine 1.79 H Estim Creat Clear Calc 29.2 Estimated GFR 36 POC Glucose 109 Random Glucose 125 H Estimat Average Glucose 91 Hemoglobin A1c % 4.8 Calcium 8.1 L 02/04/22 02/04/22 11:52 15:21 Sodium Potassium Chloride Carbon Dioxide Anion Gap BUN Creatinine Estim Creat Clear Calc Estimated GFR POC Glucose 121 H 112 Random Glucose Estimat Average Glucose Hemoglobin A1c % Calcium Microbiology Microbiology Results: Microbiology 02/02/22 Unknown Urine Catheterized - Straight Catheter Urine Culture - Preliminary Gram negative rosa 02/01/22 19:30 Blood - Venous Blood Culture - Preliminary No growth after 48 hours. 02/01/22 19:30 Blood - Venous Blood Culture - Preliminary No growth after 48 hours. Procedures Date of Service Date of Service: 02/04/22 Assessment & Plan Assessment and plan (1) AMS (altered mental status): Status: Acute (2) UTI (urinary tract infection): Status: Acute (3) Hypoglycemia: Status: Acute Plan 1. CKD 3: Scr stable 2. 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 Unexplaoined Hypogycemia: w/u in progress and r/o insulinoma 5. Anemia 6. HTN: subopt control--improved REC: cont CSA and cellcept; check C-pep; check Phos and PTH evel; cont cozaar 100 qd and track renal func Will follow w tram Time Spent With Patient Time: Total time spent is greater than 50% in coordination of care (as documented) at patient's floor/unit and/or counseling patient: Progress Note: Quality Stroke Does the patient have a stroke diagnosis?: No
[2022-02-04 18:57] VITALS: BP 133/62; PULSE 87; RESP 14; TEMP 36.8; O2SAT 96
[2022-02-04 19:41] LABS: Glucose, Whole Blood 96 mg/dL (60-115)
[2022-02-04] MEDS: traMADoL HCL 50 MG TABLET PO (20:00)
[2022-02-04 23:15] VITALS: BP 141/59; PULSE 80; RESP 21; TEMP 36.7; O2SAT 97
[2022-02-05 03:27] VITALS: BP 133/64; PULSE 77; RESP 17; TEMP 36.9; O2SAT 98
[2022-02-05] MEDS: cefTRIAXone sodium 1 GM in 0.9 % Sodium Chloride 50 ML IV (05:57)
[2022-02-05 06:01] LABS: Glucose, Whole Blood 81 mg/dL (60-115)
[2022-02-05 07:38] VITALS: BP 146/68; PULSE 72; RESP 18; TEMP 37; O2SAT 98
[2022-02-05 07:53] LABS: Glucose, Whole Blood 96 mg/dL (60-115)
[2022-02-05] MEDS: buPROPion HCl XL 300 MG TAB.ER.24H PO (09:26)
[2022-02-05] MEDS: VerapamiL HCL SR 240 MG TABLET.ER PO (09:26)
[2022-02-05] MEDS: Heparin Sodium,Porcine 5,000 UNIT/ML VIAL 5000 UNIT SUBCUT ×2 (09:27→17:13)
[2022-02-05] MEDS: hydrALAZINE HCl 25 MG TABLET PO ×2 (09:27→21:10)
[2022-02-05] MEDS: calcitrioL 0.25 MCG CAPSULE PO (09:27)
[2022-02-05] MEDS: Aspirin Enteric Coated 81 MG TABLET.DR PO (09:27)
[2022-02-05] MEDS: Cinacalcet HCl 30 MG TABLET PO (09:27)
[2022-02-05] MEDS: Cyanocobalamin (Vitamin B-12) 1,000 MCG TABLET 1000 MCG PO (09:27)
[2022-02-05] MEDS: lamoTRIgine 25 MG TABLET 250 MG PO (09:28)
[2022-02-05] MEDS: 0.9 % Sodium Chloride Flush 3 ML SYRINGE IVFLUSH ×2 (09:28→17:13)
[2022-02-05] MEDS: Artificial Tears 15 ML DROPS 1 DROP EYE-BOTH (09:30)
[2022-02-05] MEDS: 0.9 % Sodium Chloride 1,000 ML 80 ML IVCONT ×2 (10:27→21:12)
[2022-02-05] MEDS: Escitalopram Oxalate 20 MG TABLET PO (10:28)
[2022-02-05] MEDS: mycophenolate mofetiL 250 MG CAPSULE 500 MG PO ×2 (10:28→18:44)
[2022-02-05 11:19] VITALS: BP 119/58; PULSE 81; RESP 18; TEMP 37; O2SAT 98
[2022-02-05 11:36] LABS: Glucose, Whole Blood 99 mg/dL (60-115)
--- NOTE | 2022-02-05 13:51 | P.PNIM_ITS ---
Subjective Subjective Date of Service: 02/05/22 Interval History: hypoglycemia,uti Review of Systems patient seems to be improving, denies any chest pain shortness of breath or any lightheadedness or dizziness or any weakness or numbness. Physical Exam Vital Signs: Vital Signs: Last Vital Signs Temp 98.6 F 02/05/22 11:19 Pulse 81 02/05/22 11:19 Resp 18 02/05/22 11:19 BP 119/58 L 02/05/22 11:19 Pulse Ox 98 02/05/22 11:19 O2 Del Method 02/05/22 11:19 BMI result Body Mass Index 26.4 General: AO X 3, no acute distress Resp:? CTA bilateral CVS: S1,S2,RRR GI: +BS, NT, no distention Skin: No rash Neuro:? motor grossly intact Psych: appropriate affect Objective Data Active Medications Acetaminophen (Acetaminophen 325 Mg Tablet) 650 mg PO Q6H PRN PRN Reason: Pain, Mild (Pain Scale 1-3) Last Admin: 02/04/22 08:52 Dose: 650 mg Documented By: NEYDA Artificial Tears (Artificial Tears 15 Ml Drops) 1 drop EYE-BOTH BID@1830 PRN PRN Reason: Dry Eye(S) Artificial Tears (Artificial Tears 15 Ml Drops) 1 drop EYE-BOTH Q4H PRN PRN Reason: dry eyes Last Admin: 02/05/22 09:30 Dose: 1 drop Documented By: DELBERT Aspirin (Aspirin Enteric Coated 81 Mg Tablet.Dr) 81 mg PO DAILY [facility] Last Admin: 02/05/22 09:27 Dose: 81 mg Documented By: DELBERT Bupropion HCl (Bupropion Hcl Xl 300 Mg Tab.Er.24h) 300 mg PO DAILY [facility] Last Admin: 02/05/22 09:26 Dose: 300 mg Documented By: DELBERT Calcitriol (Calcitriol 0.25 Mcg Capsule) 0.25 mcg PO DAILY [facility] Last Admin: 02/05/22 09:27 Dose: 0.25 mcg Documented By: DELBERT Cinacalcet (Cinacalcet Hcl 30 Mg Tablet) 30 mg PO DAILY [facility] Last Admin: 02/05/22 09:27 Dose: 30 mg Documented By: DELBERT Cyanocobalamin (Cyanocobalamin (Vitamin B-12) 1,000 Mcg Tablet) 1,000 mcg PO DAILY [facility] Last Admin: 02/05/22 09:27 Dose: 1,000 mcg Documented By: DELBERT Dextrose (Dextrose 50 % 25 Gm/50 Ml Syringe) 25 gm IVPUSH Q15M PRN; Protocol PRN Reason: per Hypoglycemia Standing Ord. Last Admin: 02/01/22 23:54 Dose: 25 gm Documented By: JUAN Escitalopram Oxalate (Escitalopram Oxalate 20 Mg Tablet) 20 mg PO DAILY [facility] Last Admin: 02/05/22 10:28 Dose: 20 mg Documented By: DELBERT Glucose (Glucose Gel 15 Gm Gel..Gram.) 15 gm PO Q15M PRN; Protocol PRN Reason: per Hypoglycemia Standing Ord. Last Admin: 02/02/22 11:32 Dose: 15 gm Documented By: GWYN Heparin Sodium (Porcine) (Heparin Sodium,Porcine 5,000 Unit/Ml Vial) 5,000 unit SUBCUT Q8H [facility] Last Admin: 02/05/22 09:27 Dose: 5,000 unit Documented By: DELBERT Hydralazine HCl (Hydralazine Hcl 25 Mg Tablet) 25 mg PO BID [facility]; Protocol Last Admin: 02/05/22 09:27 Dose: 25 mg Documented By: DELBERT Hydromorphone HCl (Hydromorphone Hcl 0.5 Mg/0.5 Ml Syringe) 0.5 mg IVPUSH Q4H PRN; Protocol PRN Reason: Pain, Severe (Pain Scale 7-10) Ceftriaxone Sodium 1 gm/ (Sodium Chloride) 50 mls @ 100 mls/hr IV DAILY@0600 [facility] Last Infusion: 02/05/22 06:32 Dose: 0 mls/hr Documented By: ANTOIC Sodium Chloride (Ns) 1,000 mls @ 80 mls/hr IVCONT .[id number] [facility] Last Admin: 02/05/22 10:27 Dose: 80 mls/hr Documented By: DELBERT Lamotrigine (Lamotrigine 25 Mg Tablet) 250 mg PO DAILY [facility] Last Admin: 02/05/22 09:28 Dose: 250 mg Documented By: DELBERT Losartan Potassium (Losartan Potassium 50 Mg Tablet) 50 mg PO DAILY [facility]; Protocol Last Admin: 02/04/22 08:29 Dose: 50 mg Documented By: NEYDA Melatonin (Melatonin 3 Mg Tablet) 6 mg PO BEDTIME PRN PRN Reason: Insomnia Mycophenolate Mofetil (Mycophenolate Mofetil 250 Mg Capsule) 500 mg PO BID@ [facility] Last Admin: 02/05/22 10:28 Dose: 500 mg Documented By: DELBERT Non-Formulary Medication (Dutasteride) 1 cap PO DAILY [facility] Pt Own (Cyclosporine 100 Mg Capsules [facility] Modified) 100 each PO BID@ [facility] Last Admin: 02/05/22 09:30 Dose: 100 each Documented By: DELBERT Pharmacy Consult (Consult Rx Perform Med Rec) 1 each MISCELLANE ONCE PRN PRN Reason: Consult order Senna (Sennosides 8.6 Mg Tablet) 17.2 mg PO BEDTIME PRN PRN Reason: Constipation Sodium Chloride (0.9 % Sodium Chloride Flush 3 Ml Syringe) 3 ml IVFLUSH QSHIFT [facility] Last Admin: 02/05/22 09:28 Dose: 3 ml Documented By: DELBERT Tamsulosin HCl (Tamsulosin Hcl 0.4 Mg Capsule) 0.8 mg PO DAILY@1829 [facility] Last Admin: 02/04/22 17:19 Dose: 0.8 mg Documented By: NEYDA Tramadol HCl (Tramadol Hcl 50 Mg Tablet) 50 mg PO BEDTIME [facility] Last Admin: 02/04/22 20:00 Dose: 50 mg Documented By: ANTOIC Trazodone HCl (Trazodone Hcl 100 Mg Tablet) 100 mg PO DAILY@1829 [facility] Last Admin: 02/04/22 17:19 Dose: 100 mg Documented By: NEYDA Verapamil HCl (Verapamil Hcl Sr 240 Mg Tablet.Er) 240 mg PO DAILY [facility]; Protocol Last Admin: 02/05/22 09:26 Dose: 240 mg Documented By: DELBERT Labs CBC & Chem 7: 02/02/22 05:42 02/04/22 06:18 Labs: Laboratory Results - last 24 hr 02/03/22 02/04/22 02/04/22 04:38 15:21 18:58 POC Glucose 112 96 C-Peptide 4.70 H 02/05/22 02/05/22 02/05/22 05:56 07:48 11:26 POC Glucose 81 96 99 C-Peptide Microbiology Microbiology Results: Microbiology 02/02/22 Unknown Urine Culture - Preliminary Urine Catheterized - Straight Catheter Pseudomonas aeruginosa Assessment and Plan (1) Hypoglycemia: Status: Acute Plan 82-year-old male with a past medical history hypertension, hyperlipidemia, BPH, CKD, history of kidney transplant, dry eye syndrome, vitamin-D deficiency, dysphagia, spinal stenosis, right arm AV fistula, CAD, hyperparathyroidism, macular degeneration, squamous cell carcinoma of the trunk, 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 varicose veins, dementia, [facility] resident presented to the hospital today with a chief complaint of altered mental status/ hypoglycemia.? ? Altered mental status: Likely toxic metabolic encephalopathy from hypoglycemia. He is back to baseline Hypoglycemia:? Patient had recurrent hypoglycemia.? Unclear etiology. ? Seizure precautions. hypoglycemia panel- insulin, proinsulin, beta hydroxybutyrate, C-peptide. Hba1c levels 4.8. off fluids d/w endocrinology in detail dr Carrillo -recomended npo : for hypoglycemia ,avoid fluids with glucose also. If patient becomes symptomatic with hypoglycemia- please check fingerstick 1st and then BMP and then need to draw insulin, proinsulin, C-peptide level at that time 1st before giving dextrose or hypoglycemia treatment if possible. serum sulfonylurea levels and cortisol level for the morning ordered. Endocrine follow-up on outpatient basis if this doesn't resolved UTI: Ceftriaxone, follow culture? Urinary retention:? Patient had urinary retention about 1200 cc.? George catheter placed.? Likely in the setting of UTI.? Will also consult Urology. DEMETRIUS on CKD s/p renal transplant, Creatine is down to normal with IVF. Continue immunosupresives (mycophenolate, cyclosporine), nephro to follow History of BPH:? Continue home dutasteride, Flomax. history of dementia with behavioral disturbances: Continue home escitalopram, lamotrigine, trazodone History of hypertension:? Continue home losartan, verapamil DVT prophylaxis:? Subcu heparin Code status:? DNR / DNI.? Patient has molst form. Inpatient need:severe hypoglycemia - Need to monitor for hypoglycemia for 24- 36 hours Quality Stroke Does the patient have a stroke diagnosis?: No VTE Prior VTE?: No VTE Risk Level:: Medical - moderate - high VTE Device Contraindication: Treatment Not Indicated VTE Drug Contraindication: N/A - Med Ordered
--- NOTE | 2022-02-05 14:06 | MHC.CM.PN ---
Per ROUNDS discussion, patient is Not yet medically cleared for discharge today r/t Severe Hypoglycemia- Need for monitoring for 24-36 hours. CM will continue to follow for D/C needs.
[2022-02-05 15:53] VITALS: BP 136/76; PULSE 78; RESP 18; TEMP 36.6; O2SAT 98
[2022-02-05 16:00] VITALS: TEMP 36.6
[2022-02-05 16:34] LABS: Glucose, Whole Blood 81 mg/dL (60-115)
[2022-02-05 17:23] LABS: Glucose, Whole Blood 87 mg/dL (60-115)
[2022-02-05] MEDS: traZODone HCL 100 MG TABLET PO (18:24)
[2022-02-05] MEDS: Tamsulosin HCL 0.4 MG CAPSULE 0.8 MG PO (18:24)
--- NOTE | 2022-02-05 18:54 | PM.PNNEP ---
Subjective Subjective Date of Service: 02/05/22 Interval history: Seen and examined, events noted Physical Exam Vital Signs: Vital Signs: Last Vital Signs Temp 97.8 F 02/05/22 16:00 Pulse 78 02/05/22 15:53 Resp 18 02/05/22 15:53 BP 136/76 02/05/22 15:53 Pulse Ox 98 02/05/22 15:53 O2 Del Method 02/05/22 11:19 BMI result Body Mass Index 26.4 HEENT: Head: Yes normal to inspection Chest: Chest palpation & inspection: normal inspection of the chest Resp: Effort & Inspection: normal respiratory effort and able to speak in complete sentences Objective Data Labs CBC & Chem 7: 02/02/22 05:42 02/04/22 06:18 Labs: Laboratory Results - last 24 hr 02/03/22 02/04/22 02/05/22 04:38 18:58 05:56 POC Glucose 96 81 C-Peptide 4.70 H 02/05/22 02/05/22 02/05/22 07:48 11:26 16:29 POC Glucose 96 99 81 C-Peptide 02/05/22 17:17 POC Glucose 87 C-Peptide Microbiology Microbiology Results: Microbiology 02/02/22 Unknown Urine Catheterized - Straight Catheter Urine Culture - Preliminary Pseudomonas aeruginosa 02/01/22 19:30 Blood - Venous Blood Culture - Preliminary No growth after 48 hours. 02/01/22 19:30 Blood - Venous Blood Culture - Preliminary No growth after 48 hours. Procedures Date of Service Date of Service: 02/05/22 Assessment & Plan Assessment and plan (1) AMS (altered mental status): Status: Acute (2) UTI (urinary tract infection): Status: Acute (3) Hypoglycemia: Status: Acute Plan 1. CKD 3: Scr stable 2. 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 Unexplaoined Hypogycemia: w/u in progress and r/o insulinoma 5. Anemia 6. HTN: -improved REC: cont CSA and cellcept; check C-pep; check Phos and PTH evel; cont cozaar 100 qd and track renal func I will arrange f/u as outpt re: CKD and IS meds for xplant Will follow w tram Time Spent With Patient Time: Total time spent is greater than 50% in coordination of care (as documented) at patient's floor/unit and/or counseling patient: Progress Note: Quality Stroke Does the patient have a stroke diagnosis?: No
[2022-02-05 20:00] VITALS: BP 136/62; PULSE 69; RESP 18; TEMP 36.8; O2SAT 97
[2022-02-05 20:44] LABS: Glucose, Whole Blood 79 mg/dL (60-115)
[2022-02-05] MEDS: traMADoL HCL 50 MG TABLET PO (21:11)
[2022-02-06] VITALS (7 sets, daily range): BP systolic 137–168; BP diastolic 62–74; PULSE 72–87; RESP 15–20; TEMP 36.8–37.1; O2SAT 95–98
[2022-02-06] MEDS: Heparin Sodium,Porcine 5,000 UNIT/ML VIAL 5000 UNIT SUBCUT ×3 (00:47→18:16)
[2022-02-06 01:16] LABS: Glucose, Whole Blood 73 mg/dL (60-115)
[2022-02-06 04:06] LABS: Glucose, Whole Blood 77 mg/dL (60-115)
[2022-02-06] MEDS: cefTRIAXone sodium 1 GM in 0.9 % Sodium Chloride 50 ML IV (05:12)
[2022-02-06 07:49] LABS: Glucose, Whole Blood 70 mg/dL (60-115)
[2022-02-06] MEDS: Aspirin Enteric Coated 81 MG TABLET.DR PO (09:16)
[2022-02-06] MEDS: calcitrioL 0.25 MCG CAPSULE PO (09:16)
[2022-02-06] MEDS: Cinacalcet HCl 30 MG TABLET PO (09:16)
[2022-02-06] MEDS: buPROPion HCl XL 300 MG TAB.ER.24H PO (09:16)
[2022-02-06] MEDS: hydrALAZINE HCl 25 MG TABLET PO ×2 (09:16→22:43)
[2022-02-06] MEDS: Escitalopram Oxalate 20 MG TABLET PO (09:16)
[2022-02-06] MEDS: Cyanocobalamin (Vitamin B-12) 1,000 MCG TABLET 1000 MCG PO (09:16)
[2022-02-06] MEDS: lamoTRIgine 25 MG TABLET 250 MG PO (09:17)
[2022-02-06] MEDS: Artificial Tears 15 ML DROPS 1 DROP EYE-BOTH (09:18)
[2022-02-06] MEDS: 0.9 % Sodium Chloride Flush 3 ML SYRINGE IVFLUSH ×2 (09:23→18:17)
[2022-02-06] MEDS: mycophenolate mofetiL 250 MG CAPSULE 500 MG PO ×2 (09:25→09:27)
[2022-02-06] MEDS: 0.9 % Sodium Chloride 1,000 ML 80 ML IVCONT (09:25)
[2022-02-06 10:34] LABS: Cortisol Random 12.4 ug/dL
[2022-02-06 11:44] LABS: Glucose, Whole Blood 65 mg/dL (60-115)
--- NOTE | 2022-02-06 11:47 | PM.PNNEP ---
Subjective Subjective Date of Service: 02/06/22 Interval history: Seen and examined, events noted Physical Exam Vital Signs: Vital Signs: Last Vital Signs Temp 98.8 F 02/06/22 10:55 Pulse 87 02/06/22 10:55 Resp 20 02/06/22 10:55 BP 147/62 H 02/06/22 10:55 Pulse Ox 97 02/06/22 10:55 O2 Del Method 02/06/22 10:55 BMI result Body Mass Index 26.4 Const: General: no acute distress Eyes: EOM: EOMs intact bilaterally Neck: Neck: Yes supple Resp: Auscultation: diminished lung sounds Cardio: Jugular venous distension: no JVD GI: Palpation (GI): Soft to palpation Neuro: General: moves all extremities Objective Data Labs CBC & Chem 7: 02/02/22 05:42 02/04/22 06:18 Labs: Laboratory Results - last 24 hr 02/05/22 02/05/22 02/05/22 16:29 17:17 20:40 POC Glucose 81 87 79 Random Cortisol 02/06/22 02/06/22 02/06/22 00:29 04:01 06:34 POC Glucose 73 77 Random Cortisol 12.4 02/06/22 02/06/22 07:26 10:59 POC Glucose 70 65 Random Cortisol Microbiology Microbiology Results: Microbiology 02/02/22 Unknown Urine Catheterized - Straight Catheter Urine Culture - Final Pseudomonas aeruginosa 02/01/22 19:30 Blood - Venous Blood Culture - Preliminary No growth after 48 hours. 02/01/22 19:30 Blood - Venous Blood Culture - Preliminary No growth after 48 hours. Procedures Date of Service Date of Service: 02/06/22 Assessment & Plan Assessment and plan (1) Renal transplant recipient: Status: Acute Assessment and Plan: s/p kidney transplant in [place] for ESRD ; maintained on CSA and cellcept Renal functions stable; Tolerating ARB No change in immunosuppression Shall arrange office F/U when D/[place] Time Spent With Patient Time: Total time spent is greater than 50% in coordination of care (as documented) at patient's floor/unit and/or counseling patient: Progress Note: Quality Stroke Does the patient have a stroke diagnosis?: No
[2022-02-06 16:08] LABS: Glucose, Whole Blood 59 mg/dL (60-115)
--- NOTE | 2022-02-06 17:08 | HO.PM.IMPN ---
Subjective Subjective Date of Service: 02/06/22 Interval History: hypoglycemia Review of Systems seems like sofar no new symptoms with hypoglycemia provocation. denies any chest pain or shortness of breath or abdominal pain or fever chills or cough or phlegm or lightheadness. Physical Exam Vital Signs: Vital Signs: Last Vital Signs Temp 98.5 F 02/06/22 16:15 Pulse 78 02/06/22 16:15 Resp 20 02/06/22 16:15 BP 138/70 02/06/22 16:15 Pulse Ox 98 02/06/22 16:15 O2 Del Method 02/06/22 16:15 BMI result Body Mass Index 26.4 ?General: AO X 3, no acute distress Resp:? CTA bilateral CVS: S1,S2,RRR GI: +BS, NT, no distention Skin: No rash Neuro:? motor grossly intact Psych: appropriate affect Objective Data Active Medications Acetaminophen (Acetaminophen 325 Mg Tablet) 650 mg PO Q6H PRN PRN Reason: Pain, Mild (Pain Scale 1-3) Last Admin: 02/04/22 08:52 Dose: 650 mg Documented By: NEYDA Artificial Tears (Artificial Tears 15 Ml Drops) 1 drop EYE-BOTH BID@09,1830 PRN PRN Reason: Dry Eye(S) Artificial Tears (Artificial Tears 15 Ml Drops) 1 drop EYE-BOTH Q4H PRN PRN Reason: dry eyes Last Admin: 02/06/22 09:18 Dose: 1 drop Documented By: DELBERT Aspirin (Aspirin Enteric Coated 81 Mg Tablet.Dr) 81 mg PO DAILY [facility] Last Admin: 02/06/22 09:16 Dose: 81 mg Documented By: DELBERT Bupropion HCl (Bupropion Hcl Xl 300 Mg Tab.Er.24h) 300 mg PO DAILY [facility] Last Admin: 02/06/22 09:16 Dose: 300 mg Documented By: DELBERT Calcitriol (Calcitriol 0.25 Mcg Capsule) 0.25 mcg PO DAILY [facility] Last Admin: 02/06/22 09:16 Dose: 0.25 mcg Documented By: DELBERT Cinacalcet (Cinacalcet Hcl 30 Mg Tablet) 30 mg PO DAILY [facility] Last Admin: 02/06/22 09:16 Dose: 30 mg Documented By: DELBERT Cyanocobalamin (Cyanocobalamin (Vitamin B-12) 1,000 Mcg Tablet) 1,000 mcg PO DAILY [facility] Last Admin: 02/06/22 09:16 Dose: 1,000 mcg Documented By: DELBERT Dextrose (Dextrose 50 % 25 Gm/50 Ml Syringe) 25 gm IVPUSH Q15M PRN; Protocol PRN Reason: per Hypoglycemia Standing Ord. Last Admin: 02/01/22 23:54 Dose: 25 gm Documented By: JUAN Escitalopram Oxalate (Escitalopram Oxalate 20 Mg Tablet) 20 mg PO DAILY [facility] Last Admin: 02/06/22 09:16 Dose: 20 mg Documented By: DELBERT Glucose (Glucose Gel 15 Gm Gel..Gram.) 15 gm PO Q15M PRN; Protocol PRN Reason: per Hypoglycemia Standing Ord. Last Admin: 02/02/22 11:32 Dose: 15 gm Documented By: GWYN Heparin Sodium (Porcine) (Heparin Sodium,Porcine 5,000 Unit/Ml Vial) 5,000 unit SUBCUT Q8H [facility] Last Admin: 02/06/22 09:16 Dose: 5,000 unit Documented By: DELBERT Hydralazine HCl (Hydralazine Hcl 25 Mg Tablet) 25 mg PO BID [facility]; Protocol Last Admin: 02/06/22 09:16 Dose: 25 mg Documented By: DELBERT Hydromorphone HCl (Hydromorphone Hcl 0.5 Mg/0.5 Ml Syringe) 0.5 mg IVPUSH Q4H PRN; Protocol PRN Reason: Pain, Severe (Pain Scale 7-10) Ceftriaxone Sodium 1 gm/ (Sodium Chloride) 50 mls @ 100 mls/hr IV DAILY@0600 [facility] Last Infusion: 02/06/22 05:50 Dose: 0 mls/hr Documented By: NAUMOC Sodium Chloride (Ns) 1,000 mls @ 80 mls/hr IVCONT .[id number] [facility] Last Admin: 02/06/22 09:25 Dose: 80 mls/hr Documented By: DELBERT Lamotrigine (Lamotrigine 25 Mg Tablet) 250 mg PO DAILY [facility] Last Admin: 02/06/22 09:17 Dose: 250 mg Documented By: DELBERT Losartan Potassium (Losartan Potassium 50 Mg Tablet) 50 mg PO DAILY [facility]; Protocol Last Admin: 02/04/22 08:29 Dose: 50 mg Documented By: NEYDA Melatonin (Melatonin 3 Mg Tablet) 6 mg PO BEDTIME PRN PRN Reason: Insomnia Mycophenolate Mofetil (Mycophenolate Mofetil 250 Mg Capsule) 500 mg PO BID@ [facility] Last Admin: 02/06/22 09:27 Dose: 500 mg Documented By: DELBERT Non-Formulary Medication (Dutasteride) 1 cap PO DAILY [facility] Pt Own (Cyclosporine 100 Mg Capsules Skilled Nursing Modified) 100 each PO BID@ [facility] Last Admin: 02/06/22 09:18 Dose: 100 each Documented By: DELBERT Pharmacy Consult (Consult Rx Perform Med Rec) 1 each MISCELLANE ONCE PRN PRN Reason: Consult order Senna (Sennosides 8.6 Mg Tablet) 17.2 mg PO BEDTIME PRN PRN Reason: Constipation Sodium Chloride (0.9 % Sodium Chloride Flush 3 Ml Sy[facility]) [facility] Last Admin: 02/06/22 09:23 Dose: 3 ml Documented By: DELBERT Tamsulosin HCl (Tamsulosin Hcl 0.4 Mg Capsule) 0.8 mg PO DAILY@1829 [facility] Last Admin: 02/05/22 18:24 Dose: 0.8 mg Documented By: DELBERT Tramadol HCl (Tramadol Hcl 50 Mg Tablet) 50 mg PO BEDTIME [facility] Last Admin: 02/05/22 21:11 Dose: 50 mg Documented By: CANDIDO Trazodone HCl (Trazodone Hcl 100 Mg Tablet) 100 mg PO DAILY@1829 [facility] Last Admin: 02/05/22 18:24 Dose: 100 mg Documented By: DELBERT Verapamil HCl (Verapamil Hcl Sr 240 Mg Tablet.Er) 240 mg PO DAILY [facility]; Protocol Last Admin: 02/05/22 09:26 Dose: 240 mg Documented By: DELBERT Labs CBC & Chem 7: 02/02/22 05:42 02/04/22 06:18 Labs: Laboratory Results - last 24 hr 02/05/22 02/05/22 02/06/22 17:17 20:40 00:29 POC Glucose 87 79 73 Random Cortisol 02/06/22 02/06/22 02/06/22 04:01 06:34 07:26 POC Glucose 77 70 Random Cortisol 12.4 02/06/22 02/06/22 10:59 16:02 POC Glucose 65 59 L* Random Cortisol Microbiology Microbiology Results: Microbiology 02/02/22 Unknown Urine Culture - Final Urine Catheterized - Straight Catheter Pseudomonas aeruginosa Assessment and Plan (1) Hypoglycemia: Status: Acute Plan 82-year-old male with a past medical history hypertension, hyperlipidemia, BPH, CKD, history of kidney transplant, dry eye syndrome, vitamin-D deficiency, dysphagia, spinal stenosis, right arm AV fistula, CAD, hyperparathyroidism, macular degeneration, squamous cell carcinoma of the trunk, 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 varicose veins, dementia, group home resident presented to the hospital today with a chief complaint of altered mental status/ hypoglycemia.? ? Altered mental status: Likely toxic metabolic encephalopathy from hypoglycemia. He is back to baseline Hypoglycemia:? Patient had recurrent hypoglycemia.? Unclear etiology. ? Seizure precautions. hypoglycemia panel- insulin, proinsulin, beta hydroxybutyrate, C-peptide. Hba1c levels 4.8. off fluids d/w endocrinology in detail dr Carrillo -recomended npo : for hypoglycemia ,avoid fluids with glucose also. fs slowly trending down but no hypoglycemic symptoms- for 24 hours If patient becomes symptomatic with hypoglycemia- please check fingerstick 1st and then BMP and then need to draw insulin, proinsulin, C-peptide level at that time 1st before giving dextrose or hypoglycemia treatment if possible. serum sulfonylurea levels and cortisol level for the morning ordered. Endocrine follow-up on outpatient basis if this doesn't resolved UTI: Ceftriaxone, follow culture? Urinary retention:? Patient had urinary retention about 1200 cc.? George catheter placed.? Likely in the setting of UTI.? Will also consult Urology. DEMETRIUS on CKD s/p renal transplant, Creatine is down to normal with IVF. Continue immunosupresives (mycophenolate, cyclosporine), nephro to follow History of BPH:? Continue home dutasteride, Flomax. history of dementia with behavioral disturbances: Continue home escitalopram, lamotrigine, trazodone History of hypertension:? Continue home losartan, verapamil DVT prophylaxis:? Subcu heparin Code status:? DNR / DNI.? Patient has molst form. Inpatient need:severe hypoglycemia - Need to monitor for hypoglycemia for 24-36 hours Quality Stroke Does the patient have a stroke diagnosis?: No VTE Prior VTE?: No VTE Risk Level:: Medical - moderate - high VTE Device Contraindication: Treatment Not Indicated VTE Drug Contraindication: N/A - Med Ordered
[2022-02-06] MEDS: Tamsulosin HCL 0.4 MG CAPSULE 0.8 MG PO (18:16)
[2022-02-06] MEDS: traZODone HCL 100 MG TABLET PO (18:16)
[2022-02-06 18:42] LABS: Glucose, Whole Blood 55 mg/dL (60-115)
[2022-02-06 18:59] LABS: Glucose, Whole Blood 53 mg/dL (60-115)
[2022-02-06 20:04] LABS: Anion Gap 17 (12-20); Blood Urea Nitrogen 36 mg/dL (9-16); Calcium 8.3 mg/dL (8.4-10.2); Carbon Dioxide 19 mmol/L (22-29); Chloride 107 mmol/L (96-108); Creatinine Clr Calc Pharmacy 37.1; Estimated Glomerular Filt Rate 48; Glucose Random 58 mg/dL (60-115); Potassium 4.6 mmol/L (3.3-5.1); Sodium 138 mmol/L (135-145)
[2022-02-06 20:05] LABS: Insulin 2 uU/mL (2-29)
[2022-02-06 20:09] LABS: Glucose, Whole Blood 56 mg/dL (60-115)
[2022-02-06] MEDS: Dextrose 5 % and Lactated Ring 1,000 ML 80 ML IVCONT (20:11)
[2022-02-06 21:30] LABS: Glucose, Whole Blood 89 mg/dL (60-115)
[2022-02-06] MEDS: traMADoL HCL 50 MG TABLET PO (22:42)
[2022-02-07 00:07] LABS: Glucose, Whole Blood 114 mg/dL (60-115)
[2022-02-07] MEDS: Heparin Sodium,Porcine 5,000 UNIT/ML VIAL 5000 UNIT SUBCUT ×4 (00:31→23:54)
[2022-02-07] MEDS: cefTRIAXone sodium 1 GM in 0.9 % Sodium Chloride 50 ML IV (05:57)
[2022-02-07] MEDS: Dextrose 5 % and Lactated Ring 1,000 ML 80 ML IVCONT ×2 (06:05→20:13)
[2022-02-07 07:44] VITALS: BP 148/71; PULSE 70; RESP 20; TEMP 36.8; O2SAT 98
[2022-02-07 07:59] LABS: Glucose, Whole Blood 84 mg/dL (60-115)
[2022-02-07] MEDS: lamoTRIgine 100 MG TABLET 250 MG PO (11:05)
[2022-02-07] MEDS: calcitrioL 0.25 MCG CAPSULE PO (11:15)
[2022-02-07] MEDS: Aspirin Enteric Coated 81 MG TABLET.DR PO (11:15)
[2022-02-07] MEDS: Cinacalcet HCl 30 MG TABLET PO (11:15)
[2022-02-07] MEDS: buPROPion HCl XL 300 MG TAB.ER.24H PO (11:15)
[2022-02-07] MEDS: Cyanocobalamin (Vitamin B-12) 1,000 MCG TABLET 1000 MCG PO (11:15)
[2022-02-07] MEDS: Escitalopram Oxalate 20 MG TABLET PO (11:15)
[2022-02-07] MEDS: hydrALAZINE HCl 25 MG TABLET PO ×2 (11:16→20:13)
[2022-02-07] MEDS: mycophenolate mofetiL 250 MG CAPSULE 500 MG PO ×2 (11:18→18:58)
[2022-02-07 12:00] VITALS: BP 143/77; PULSE 77; RESP 20; TEMP 37.1; O2SAT 93
[2022-02-07 12:09] LABS: Glucose, Whole Blood 118 mg/dL (60-115)
--- NOTE | 2022-02-07 12:14 | P.PNIM_ITS ---
Subjective Subjective Date of Service: 02/08/22 Interval History: hypoglycemia-unclear etiology Review of Systems as per night staff : patient was symptomatic . started on diet and fluids afterwards Physical Exam Vital Signs: Vital Signs: Last Vital Signs Temp 98.2 F 02/07/22 07:44 Pulse 70 02/07/22 07:44 Resp 20 02/07/22 07:44 BP 148/71 H 02/07/22 07:44 Pulse Ox 98 02/07/22 07:44 O2 Del Method 02/07/22 07:44 BMI result Body Mass Index 26.4 General: AO X 3, no acute distress Resp:? CTA bilateral CVS: S1,S2,RRR GI: +BS, NT, no distention Skin: No rash Neuro:? motor grossly intact Psych: appropriate affect Objective Data Active Medications Acetaminophen (Acetaminophen 325 Mg Tablet) 650 mg PO Q6H PRN PRN Reason: Pain, Mild (Pain Scale 1-3) Last Admin: 02/04/22 08:52 Dose: 650 mg Documented By: NEYDA Artificial Tears (Artificial Tears 15 Ml Drops) 1 drop EYE-BOTH BID@1830 PRN PRN Reason: Dry Eye(S) Artificial Tears (Artificial Tears 15 Ml Drops) 1 drop EYE-BOTH Q4H PRN PRN Reason: dry eyes Last Admin: 02/06/22 09:18 Dose: 1 drop Documented By: DELBERT Aspirin (Aspirin Enteric Coated 81 Mg Tablet.) 81 mg PO DAILY [facility] Last Admin: 02/07/22 11:15 Dose: 81 mg Documented By: JEFF Bupropion HCl (Bupropion Hcl Xl 300 Mg Tab.Er.24h) 300 mg PO DAILY [facility] Last Admin: 02/07/22 11:15 Dose: 300 mg Documented By: JEFF Calcitriol (Calcitriol 0.25 Mcg Capsule) 0.25 mcg PO DAILY [facility] Last Admin: 02/07/22 11:15 Dose: 0.25 mcg Documented By: JEFF Cinacalcet (Cinacalcet Hcl 30 Mg Tablet) 30 mg PO DAILY [facility] Last Admin: 02/07/22 11:15 Dose: 30 mg Documented By: JEFF Cyanocobalamin (Cyanocobalamin (Vitamin B-12) 1,000 Mcg Tablet) 1,000 mcg PO DAILY [facility] Last Admin: 02/07/22 11:15 Dose: 1,000 mcg Documented By: JEFF Dextrose (Dextrose 50 % 25 Gm/50 Ml Syringe) 25 gm IVPUSH Q15M PRN; Protocol PRN Reason: per Hypoglycemia Standing Ord. Last Admin: 02/01/22 23:54 Dose: 25 gm Documented By: JUAN Escitalopram Oxalate (Escitalopram Oxalate 20 Mg Tablet) 20 mg PO DAILY [facility] Last Admin: 02/07/22 11:15 Dose: 20 mg Documented By: JEFF Glucose (Glucose Gel 15 Gm Gel..Gram.) 15 gm PO Q15M PRN; Protocol PRN Reason: per Hypoglycemia Standing Ord. Last Admin: 02/02/22 11:32 Dose: 15 gm Documented By: GWYN Heparin Sodium (Porcine) (Heparin Sodium,Porcine 5,000 Unit/Ml Vial) 5,000 unit SUBCUT Q8H [facility] Last Admin: 02/07/22 11:04 Dose: 5,000 unit Documented By: JEFF Hydralazine HCl (Hydralazine Hcl 25 Mg Tablet) 25 mg PO BID [facility]; Protocol Last Admin: 02/07/22 11:16 Dose: 25 mg Documented By: JEFF Hydromorphone HCl (Hydromorphone Hcl 0.5 Mg/0.5 Ml Syringe) 0.5 mg IVPUSH Q4H PRN; Protocol PRN Reason: Pain, Severe (Pain Scale 7-10) Ceftriaxone Sodium 1 gm/ (Sodium Chloride) 50 mls @ 100 mls/hr IV DAILY@0600 [facility] Last Infusion: 02/07/22 08:41 Dose: 0 mls/hr Documented By: JEFF Dextrose/Lactated Ringer's (D5lr) 1,000 mls @ 80 mls/hr IVCONT .[id number] [facility] Last Admin: 02/07/22 11:15 Dose: Not Given Documented By: JEFF Non-Admin Reason: IV Running Lamotrigine (Lamotrigine 100 Mg Tablet) 250 mg PO DAILY [facility] Last Admin: 02/07/22 11:05 Dose: 250 mg Documented By: JEFF Losartan Potassium (Losartan Potassium 50 Mg Tablet) 50 mg PO DAILY [facility]; Pro tocol Last Admin: 02/04/22 08:29 Dose: 50 mg Documented By: NEYDA Melatonin (Melatonin 3 Mg Tablet) 6 mg PO BEDTIME PRN PRN Reason: Insomnia Mycophenolate Mofetil (Mycophenolate Mofetil 250 Mg Capsule) 500 mg PO BID@ [facility] Last Admin: 02/07/22 11:18 Dose: 500 mg Documented By: JEFF Non-Formulary Medication (Dutasteride) 1 cap PO DAILY [facility] Pt Own (Cyclosporine 100 Mg Capsules [facility] Modified) 100 each PO BID@ [facility] Last Admin: 02/07/22 11:18 Dose: 100 each Documented By: JEFF Pharmacy Consult (Consult Rx Perform Med Rec) 1 each MISCELLANE ONCE PRN PRN Reason: Consult order Senna (Sennosides 8.6 Mg Tablet) 17.2 mg PO BEDTIME PRN PRN Reason: Constipation Sodium Chloride (0.9 % Sodium Chloride Flush 3 Ml Syringe) 3 ml IVFLUSH QSHIFT [facility] Last Admin: 02/07/22 11:15 Dose: Not Given Documented By: JEFF Non-Admin Reason: IV Running Tamsulosin HCl (Tamsulosin Hcl 0.4 Mg Capsule) 0.8 mg PO DAILY@1829 [facility] Last Admin: 02/06/22 18:16 Dose: 0.8 mg Documented By: DELBERT Tramadol HCl (Tramadol Hcl 50 Mg Tablet) 50 mg PO BEDTIME [facility] Last Admin: 02/06/22 22:42 Dose: 50 mg Documented By: JENNA Trazodone HCl (Trazodone Hcl 100 Mg Tablet) 100 mg PO DAILY@1829 [facility] Last Admin: 02/06/22 18:16 Dose: 100 mg Documented By: DELBERT Verapamil HCl (Verapamil Hcl Sr 240 Mg Tablet.Er) 240 mg PO DAILY [facility]; Protocol Last Admin: 02/05/22 09:26 Dose: 240 mg Documented By: DELBERT Labs CBC & Chem 7: 02/02/22 05:42 02/06/22 18:49 Labs: Laboratory Results - last 24 hr 02/06/22 02/06/22 02/06/22 16:02 18:38 18:49 Anion Gap 17 Estim Creat Clear Calc 37.1 Estimated GFR 48 POC Glucose 59 L* 55 L* Random Glucose 58 L* Calcium 8.3 L 02/06/22 02/06/22 02/06/22 18:55 19:47 21:26 Anion Gap Estim Creat Clear Calc Estimated GFR POC Glucose 53 L* 56 L* 89 Random Glucose Calcium 02/07/22 02/07/22 02/07/22 00:02 07:55 12:02 Anion Gap Estim Creat Clear Calc Estimated GFR POC Glucose 114 84 118 H Random Glucose Calcium Microbiology Microbiology Results: Microbiology 02/01/22 19:30 Blood Culture - Final Blood - Venous No growth after 5 days. 02/01/22 19:30 Blood Culture - Final Blood - Venous No growth after 5 days. 02/02/22 Unknown Urine Culture - Final Urine Catheterized - Straight Catheter Pseudomonas aeruginosa Assessment and Plan (1) Hypoglycemia: Status: Acute (2) UTI (urinary tract infection): Status: Acute Plan 82-year-old male with a past medical history hypertension, hyperlipidemia, BPH, CKD, history of kidney transplant, dry eye syndrome, vitamin-D deficiency, dysphagia, spinal stenosis, right arm AV fistula, CAD, hyperparathyroidism, m acular degeneration, squamous cell carcinoma of the trunk, 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 varicose veins, dementia, [place] [facility] resident presented to the hospital today with a chief complaint of altered mental status/ hypoglycemia.? ? Altered mental status: Likely toxic metabolic encephalopathy from hypoglycemia. He is back to baseline Hypoglycemia:? Patient had recurrent hypoglycemia.? Unclear etiology. ? Seizure precautions. hypoglycemia panel- insulin, proinsulin, D-ywobupo-jqzedyg beta hydroxybutyrate, Hba1c levels 4.8. off fluids d/w endocrinology in detail dr Carrillo -patient possible has hypoglycemia symptoms. so insulin, proinsulin, [id number]-[id number]-[id number] testwere sent at time of symptoms also cosyntrop test was done late afternoon and labs were sent. Endocrine follow-up on outpatient basis if this doesn't resolved UTI: follow culture?-pseudomonas : switched to iv zosyn. Urinary retention:? Patient had urinary retention about 1200 cc.? George catheter placed.? Likely in the setting of UTI.? Will also consult Urology. DEMETRIUS on CKD s/p renal transplant, Creatine is down to normal with IVF. Continue immunosupresives (mycophenolate, cyclosporine), nephro to follow History of BPH:? Continue home dutasteride, Flomax. history of dementia with behavioral disturbances: Continue home escitalopram, lamotrigine, trazodone History of hypertension:? Continue home losartan, verapamil DVT prophylaxis:? Subcu heparin Code status:? DNR / DNI.? Patient has molst form. Inpatient need:severe hypoglycemia -needs ivf with dextrose ,encouraged po intake ,may need further workup . Quality Stroke Does the patient have a stroke diagnosis?: No VTE Prior VTE?: No VTE Risk Level:: Medical - moderate - high VTE Device Contraindication: Treatment Not Indicated VTE Drug Contraindication: N/A - Med Ordered
[2022-02-07] MEDS: Piperacillin Sodium/Tazobactam 2.25 GM in 0.9 % Sodium Chloride 50 ML IV ×3 (14:16→23:55)
[2022-02-07 15:02] VITALS: BP 161/70; PULSE 76; RESP 18; TEMP 36.9; O2SAT 98
[2022-02-07] MEDS: 0.9 % Sodium Chloride Flush 3 ML SYRINGE IVFLUSH (15:54)
--- NOTE | 2022-02-07 15:58 | PM.PNNEP ---
Subjective Subjective Date of Service: 02/07/22 Interval history: Events noted. All recent data reviewed Physical Exam Vital Signs: Vital Signs: Last Vital Signs Temp 98.5 F 02/07/22 15:02 Pulse 76 02/07/22 15:02 Resp 18 02/07/22 15:02 BP 161/70 H 02/07/22 15:02 Pulse Ox 98 02/07/22 15:02 O2 Del Method 02/07/22 15:02 BMI result Body Mass Index 26.4 Const: General: no acute distress Eyes: EOM: EOMs intact bilaterally Neck: Neck: Yes supple Resp: Auscultation: diminished lung sounds Cardio: Rate: regular rate GI: Palpation (GI): Soft to palpation Neuro: General: moves all extremities Objective Data Labs CBC & Chem 7: 02/02/22 05:42 02/06/22 18:49 Labs: Laboratory Results - last 24 hr 02/06/22 02/06/22 02/06/22 16:02 18:38 18:49 Sodium 138 Potassium 4.6 Chloride 107 Carbon Dioxide 19 L Anion Gap 17 BUN 36 H Creatinine 1.41 H Estim Creat Clear Calc 37.1 Estimated GFR 48 POC Glucose 59 L* 55 L* Random Glucose 58 L* Insulin Level 2 Calcium 8.3 L 02/06/22 02/06/22 02/06/22 18:55 19:47 21:26 Sodium Potassium Chloride Carbon Dioxide Anion Gap BUN Creatinine Estim Creat Clear Calc Estimated GFR POC Glucose 53 L* 56 L* 89 Random Glucose Insulin Level Calcium 02/07/22 02/07/22 02/07/22 00:02 07:55 12:02 Sodium Potassium Chloride Carbon Dioxide Anion Gap BUN Creatinine Estim Creat Clear Calc Estimated GFR POC Glucose 114 84 118 H Random Glucose Insulin Level Calcium Microbiology Microbiology Results: Microbiology 02/01/22 19:30 Blood - Venous Blood Culture - Final No growth after 5 days. 02/01/22 19:30 Blood - Venous Blood Culture - Final No growth after 5 days. 02/02/22 Unknown Urine Catheterized - Straight Catheter Urine Culture - Final Pseudomonas aeruginosa Procedures Date of Service Date of Service: 02/07/22 Assessment & Plan Assessment and plan (1) Renal transplant recipient: Status: Acute Assessment and Plan: s/p kidney transplant in [place] for ESRD maintained on CSA and cellcept Renal functions stable; Tolerating ARB No change in immunosuppression Shall arrange office F/U when D/Cody Time Spent With Patient Time: Total time spent is greater than 50% in coordination of care (as documented) at patient's floor/unit and/or counseling patient: Progress Note: Quality Stroke Does the patient have a stroke diagnosis?: No
[2022-02-07 16:03] LABS: Glucose, Whole Blood 118 mg/dL (60-115)
[2022-02-07] MEDS: Cosyntropin 0.25 MG VIAL IVPUSH (17:12)
[2022-02-07] MEDS: Artificial Tears 15 ML DROPS 1 DROP EYE-BOTH (18:52)
[2022-02-07] MEDS: Tamsulosin HCL 0.4 MG CAPSULE 0.8 MG PO (18:52)
[2022-02-07] MEDS: traZODone HCL 100 MG TABLET PO (18:52)
[2022-02-07 19:30] VITALS: BP 154/65; PULSE 78; RESP 18; TEMP 37.3; O2SAT 96
[2022-02-07 20:00] LABS: Glucose, Whole Blood 114 mg/dL (60-115)
[2022-02-07] MEDS: traMADoL HCL 50 MG TABLET PO (20:13)
[2022-02-07 23:21] VITALS: BP 132/62; PULSE 68; RESP 18; TEMP 37; O2SAT 98
[2022-02-07 23:26] LABS: Cyclosporine 141 mcg/L (100-300)
[2022-02-07 23:57] LABS: Glucose, Whole Blood 125 mg/dL (60-115)
[2022-02-08] MEDS: 0.9 % Sodium Chloride Flush 3 ML SYRINGE IVFLUSH ×4 (00:07→19:47)
[2022-02-08 00:42] LABS: Beta-Hydroxybutyrate 0.05 mmol/L
[2022-02-08 04:00] VITALS: BP 147/67; PULSE 71; RESP 16; TEMP 37.1; O2SAT 97
[2022-02-08 07:15] LABS: Glucose, Whole Blood 133 mg/dL (60-115)
[2022-02-08 08:00] VITALS: BP 156/72; PULSE 68; RESP 20; TEMP 36.6; O2SAT 100
[2022-02-08 08:35] LABS: Glucose, Whole Blood 90 mg/dL (60-115)
[2022-02-08] MEDS: Heparin Sodium,Porcine 5,000 UNIT/ML VIAL 5000 UNIT SUBCUT ×2 (08:37→14:35)
[2022-02-08] MEDS: Aspirin Enteric Coated 81 MG TABLET.DR PO (08:38)
[2022-02-08] MEDS: hydrALAZINE HCl 25 MG TABLET PO ×2 (08:38→19:45)
[2022-02-08] MEDS: VerapamiL HCL SR 240 MG TABLET.ER PO (08:38)
[2022-02-08] MEDS: Cyanocobalamin (Vitamin B-12) 1,000 MCG TABLET 1000 MCG PO (08:38)
[2022-02-08] MEDS: calcitrioL 0.25 MCG CAPSULE PO (08:38)
[2022-02-08] MEDS: Cinacalcet HCl 30 MG TABLET PO (08:39)
[2022-02-08] MEDS: Escitalopram Oxalate 20 MG TABLET PO (08:39)
[2022-02-08] MEDS: buPROPion HCl XL 300 MG TAB.ER.24H PO (08:39)
[2022-02-08] MEDS: lamoTRIgine 100 MG TABLET 250 MG PO (08:39)
[2022-02-08] MEDS: Piperacillin Sodium/Tazobactam 2.25 GM in 0.9 % Sodium Chloride 50 ML IV ×3 (08:41→18:25)
[2022-02-08] MEDS: mycophenolate mofetiL 250 MG CAPSULE 500 MG PO ×2 (08:57→18:24)
[2022-02-08 11:13] LABS: Glucose, Whole Blood 102 mg/dL (60-115)
[2022-02-08] MEDS: levoFLOXacin/D5W 500 MG/100 ML PIGGYBACK 100 MG IV (11:53)
[2022-02-08 12:00] VITALS: BP 140/59; PULSE 83; RESP 20; TEMP 36.9; O2SAT 96
[2022-02-08 14:58] VITALS: BP 127/56; PULSE 93; RESP 18; TEMP 36.8; O2SAT 96
--- NOTE | 2022-02-08 15:06 | PM.PNNEP ---
Subjective Subjective Date of Service: 02/08/22 Interval history: Events noted. All recent data reviewed Physical Exam Vital Signs: Vital Signs: Last Vital Signs Temp 98.3 F 02/08/22 14:58 Pulse 93 02/08/22 14:58 Resp 18 02/08/22 14:58 BP 127/56 L 02/08/22 14:58 Pulse Ox 96 02/08/22 14:58 O2 Del Method 02/08/22 14:58 BMI result Body Mass Index 26.4 Const: General: no acute distress Neck: Neck: Yes supple Resp: Auscultation: diminished lung sounds Cardio: Rate: regular rate GI: Palpation (GI): Soft to palpation Neuro: General: moves all extremities Objective Data Labs CBC & Chem 7: 02/02/22 05:42 02/06/22 18:49 Labs: Laboratory Results - last 24 hr 02/02/22 02/04/22 02/07/22 05:41 07:57 15:59 POC Glucose 118 H Beta-Hydroxybutyrate/Acetoacetate 0.05 Cyclosporine 141 02/07/22 02/07/22 02/08/22 19:55 23:53 04:01 POC Glucose 114 125 H 133 H Beta-Hydroxybutyrate/Acetoacetate Cyclosporine 02/08/22 02/08/22 08:28 11:06 POC Glucose 90 102 Beta-Hydroxybutyrate/Acetoacetate Cyclosporine Microbiology Microbiology Results: Microbiology 02/01/22 19:30 Blood - Venous Blood Culture - Final No growth after 5 days. 02/01/22 19:30 Blood - Venous Blood Culture - Final No growth after 5 days. 02/02/22 Unknown Urine Catheterized - Straight Catheter Urine Culture - Final Pseudomonas aeruginosa Procedures Date of Service Date of Service: 02/08/22 Assessment & Plan Assessment and plan (1) Renal transplant recipient: Status: Acute Assessment and Plan: s/p kidney transplant in [place] for ESRD maintained on CSA and cellcept Renal functions stable; Tolerating ARB No change in immunosuppression Shall arrange office F/U when D/Cody Time Spent With Patient Time: Total time spent is greater than 50% in coordination of care (as documented) at patient's floor/unit and/or counseling patient: Progress Note: Quality Stroke Does the patient have a stroke diagnosis?: No
[2022-02-08 16:12] LABS: Glucose, Whole Blood 115 mg/dL (60-115)
[2022-02-08 17:47] LABS: C Peptide 0.59 ng/mL (0.80-3.85)
[2022-02-08] MEDS: Tamsulosin HCL 0.4 MG CAPSULE 0.8 MG PO (18:24)
[2022-02-08] MEDS: traZODone HCL 100 MG TABLET PO (18:24)
[2022-02-08 20:00] VITALS: BP 132/63; PULSE 78; RESP 18; TEMP 36.6; O2SAT 96
[2022-02-08 21:07] LABS: Glucose, Whole Blood 112 mg/dL (60-115)
[2022-02-08 23:35] VITALS: BP 153/67; PULSE 76; RESP 17; TEMP 36.8; O2SAT 99
[2022-02-09] MEDS: Heparin Sodium,Porcine 5,000 UNIT/ML VIAL 5000 UNIT SUBCUT ×3 (00:12→15:38)
[2022-02-09] MEDS: Piperacillin Sodium/Tazobactam 2.25 GM in 0.9 % Sodium Chloride 50 ML IV ×4 (00:13→18:07)
[2022-02-09 03:30] VITALS: BP 144/77; PULSE 68; RESP 17; TEMP 36.4; O2SAT 99
[2022-02-09 04:03] LABS: Glucose, Whole Blood 79 mg/dL (60-115)
[2022-02-09 06:53] LABS: Glucose, Whole Blood 103 mg/dL (60-115)
[2022-02-09 07:39] VITALS: BP 167/79; PULSE 64; RESP 17; TEMP 37.3; O2SAT 100
[2022-02-09] MEDS: 0.9 % Sodium Chloride Flush 3 ML SYRINGE IVFLUSH ×3 (08:01→19:46)
[2022-02-09] MEDS: Aspirin Enteric Coated 81 MG TABLET.DR PO (08:02)
[2022-02-09] MEDS: Cyanocobalamin (Vitamin B-12) 1,000 MCG TABLET 1000 MCG PO (08:02)
[2022-02-09] MEDS: Cinacalcet HCl 30 MG TABLET PO (08:02)
[2022-02-09] MEDS: Escitalopram Oxalate 20 MG TABLET PO (08:02)
[2022-02-09] MEDS: buPROPion HCl XL 300 MG TAB.ER.24H PO (08:02)
[2022-02-09] MEDS: calcitrioL 0.25 MCG CAPSULE PO (08:02)
[2022-02-09] MEDS: lamoTRIgine 100 MG TABLET 250 MG PO (08:03)
[2022-02-09] MEDS: hydrALAZINE HCl 25 MG TABLET PO ×2 (08:03→19:45)
[2022-02-09] MEDS: VerapamiL HCL SR 240 MG TABLET.ER PO (08:04)
[2022-02-09] MEDS: mycophenolate mofetiL 250 MG CAPSULE 500 MG PO ×2 (08:12→18:08)
[2022-02-09 08:19] LABS: Glucose, Whole Blood 85 mg/dL (60-115)
[2022-02-09 10:12] LABS: Cortisol 30 Minute 27.7 mcg/dL; Cortisol 30 Minute Time 1754; Cortisol 60 Minute 34.9 mcg/dL; Cortisol 60 Minute Time 3 1817; Cortisol Baseline 4.9 mcg/dL; Cortisol Baseline Time 1 1714
[2022-02-09 10:27] VITALS: BP 134/66; PULSE 77; RESP 18; TEMP 36.6; O2SAT 95
[2022-02-09 10:54] VITALS: BP 110/57; PULSE 80; RESP 17; TEMP 36.9; O2SAT 97
[2022-02-09 11:04] LABS: Glucose, Whole Blood 107 mg/dL (60-115)
[2022-02-09 13:01] LABS: Mycophenolic Acid 0.9 mcg/mL (1.0-3.5); Mycophenolic Acid Glucuronide 95.4 mcg/mL (35.0-100.0)
--- NOTE | 2022-02-09 15:28 | P.PNIM_ITS ---
Subjective Subjective Date of Service: 02/09/22 Interval History: hypoglycemia Review of Systems Denies any new complaint of chest pain or shortness of breath or abdominal pain or fever or chills or nausea or vomiting Denies any cough Denies any weakness or numbness. Physical Exam Vital Signs: Vital Signs: Last Vital Signs Temp 98.4 F 02/09/22 10:54 Pulse 80 02/09/22 10:54 Resp 17 02/09/22 10:54 BP 110/57 L 02/09/22 10:54 Pulse Ox 97 02/09/22 10:54 O2 Del Method 02/09/22 10:54 BMI result Body Mass Index 26.4 General: AO X 3, no acute distress Resp:? CTA bilateral CVS: S1,S2,RRR GI: +BS, NT, no distention Skin: No rash Neuro:? motor grossly intact Psych: appropriate affect Objective Data Active Medications Acetaminophen (Acetaminophen 325 Mg Tablet) 650 mg PO Q6H PRN PRN Reason: Pain, Mild (Pain Scale 1-3) Last Admin: 02/04/22 08:52 Dose: 650 mg Documented By: NEYDA Artificial Tears (Artificial Tears 15 Ml Drops) 1 drop EYE-BOTH BID@09,1830 PRN PRN Reason: Dry Eye(S) Artificial Tears (Artificial Tears 15 Ml Drops) 1 drop EYE-BOTH Q4H PRN PRN Reason: dry eyes Last Admin: 02/07/22 18:52 Dose: 1 drop Documented By: CHILANGO Aspirin (Aspirin Enteric Coated 81 Mg Tablet.Dr) 81 mg PO DAILY [facility] Last Admin: 02/09/22 08:02 Dose: 81 mg Documented By: CHRISTA Bupropion HCl (Bupropion Hcl Xl 300 Mg Tab.Er.24h) 300 mg PO DAILY [facility] Last Admin: 02/09/22 08:02 Dose: 300 mg Documented By: CHRISTA Calcitriol (Calcitriol 0.25 Mcg Capsule) 0.25 mcg PO DAILY [facility] Last Admin: 02/09/22 08:02 Dose: 0.25 mcg Documented By: CHRISTA Cinacalcet (Cinacalcet Hcl 30 Mg Tablet) 30 mg PO DAILY [facility] Last Admin: 02/09/22 08:02 Dose: 30 mg Documented By: CHRISTA Cyanocobalamin (Cyanocobalamin (Vitamin B-12) 1,000 Mcg Tablet) 1,000 mcg PO DAILY [facility] Last Admin: 02/09/22 08:02 Dose: 1,000 mcg Documented By: CHRISTA Dextrose (Dextrose 50 % 25 Gm/50 Ml Syringe) 25 gm IVPUSH Q15M PRN; Protocol PRN Reason: per Hypoglycemia Standing Ord. Last Admin: 02/01/22 23:54 Dose: 25 gm Documented By: JUAN Escitalopram Oxalate (Escitalopram Oxalate 20 Mg Tablet) 20 mg PO DAILY [facility] Last Admin: 02/09/22 08:02 Dose: 20 mg Documented By: CHRISTA Glucose (Glucose Gel 15 Gm Gel..Gram.) 15 gm PO Q15M PRN; Protocol PRN Reason: per Hypoglycemia Standing Ord. Last Admin: 02/02/22 11:32 Dose: 15 gm Documented By: GWYN Heparin Sodium (Porcine) (Heparin Sodium,Porcine 5,000 Unit/Ml Vial) 5,000 unit SUBCUT Q8H [facility] Last Admin: 02/09/22 08:02 Dose: 5,000 unit Documented By: CHRISTA Hydralazine HCl (Hydralazine Hcl 25 Mg Tablet) 25 mg PO BID [facility]; Protocol Last Admin: 02/09/22 08:03 Dose: 25 mg Documented By: CHRISTA Hydromorphone HCl (Hydromorphone Hcl 0.5 Mg/0.5 Ml Syringe) 0.5 mg IVPUSH Q4H PRN; Protocol PRN Reason: Pain, Severe (Pain Scale 7-10) Piperacillin Sod/Tazobactam (Sod 2.25 gm/ Sodium Chloride) 50 mls @ 100 mls/hr IV Q6H [facility] Last Infusion: 02/09/22 13:33 Dose: 0 mls/hr Documented By: CHRISTA Levofloxacin (Levaquin) 500 mg in 100 mls @ 100 mls/hr IV Q48H [facility] Last Infusion: 02/08/22 13:47 Dose: 0 mls/hr Documented By: SHERWIN Lamotrigine (Lamotrigine 100 Mg Tablet) 250 mg PO DAILY [facility] Last Admin: 02/09/22 08:03 Dose: 250 mg Documented By: CHRISTA Losartan Potassium (Losartan Potassium 50 Mg Tablet) 50 mg PO DAILY [facility]; Protocol Last Admin: 02/04/22 08:29 Dose: 50 mg Documented By: NEYDA Melatonin (Melatonin 3 Mg Tablet) 6 mg PO BEDTIME PRN PRN Reason: Insomnia Mycophenolate Mofetil (Mycophenolate Mofetil 250 Mg Capsule) 500 mg PO BID@ [facility] Last Admin: 02/09/22 08:12 Dose: 500 mg Documented By: CHRISTA Pt Own (Cyclosporine 100 Mg Capsules Residential Modified) 100 each PO BID@ [facility] Last Admin: 02/09/22 08:04 Dose: 100 each Documented By: CHRISTA Pharmacy Consult (Consult Rx Perform Med Rec) 1 each MISCELLANE ONCE PRN PRN Reason: Consult order Senna (Sennosides 8.6 Mg Tablet) 17.2 mg PO BEDTIME PRN PRN Reason: Constipation Sodium Chloride (0.9 % Sodium Chloride Flush 3 Ml Syringe) 3 ml IVFLUSH QSHIFT [facility] Last Admin: 02/09/22 08:01 Dose: 3 ml Documented By: CHRISTA Tamsulosin HCl (Tamsulosin Hcl 0.4 Mg Capsule) 0.8 mg PO DAILY@1829 [facility] Last Admin: 02/08/22 18:24 Dose: 0.8 mg Documented By: SHERWIN Trazodone HCl (Trazodone Hcl 100 Mg Tablet) 100 mg PO DAILY@1829 [facility] Last Admin: 02/08/22 18:24 Dose: 100 mg Documented By: SHERWIN Verapamil HCl (Verapamil Hcl Sr 240 Mg Tablet.Er) 240 mg PO DAILY [facility]; Protocol Last Admin: 02/09/22 08:04 Dose: 240 mg Documented By: CHRISTA Labs CBC & Chem 7: 02/02/22 05:42 02/06/22 18:49 Labs: Laboratory Results - last 24 hr 02/04/22 02/06/22 02/07/22 07:57 18:49 17:07 POC Glucose C-Peptide 0.59 L Cortisol Baseline 4.9 Cortisol 30 Minute 27.7 Cortisol 60 Minute 34.9 Cortisol Lynda Time 1 1714 Cortisol Lynda Time 2 1754 Cortisol Lynda Time 3 1817 ACTH Comment See Below Mycophenolic Acid 0.9 L MPA Glucuronide Metabol 95.4 02/08/22 02/08/22 02/09/22 16:06 21:02 00:13 POC Glucose 115 112 103 C-Peptide Cortisol Baseline Cortisol 30 Minute Cortisol 60 Minute Cortisol Lynda Time 1 Cortisol Lynda Time 2 Cortisol Lynda Time 3 ACTH Comment Mycophenolic Acid MPA Glucuronide Metabol 02/09/22 02/09/22 02/09/22 03:59 07:44 11:00 POC Glucose 79 85 107 C-Peptide Cortisol Baseline Cortisol 30 Minute Cortisol 60 Minute Cortisol Lynda Time 1 Cortisol Lynda Time 2 Cortisol Lynda Time 3 ACTH Comment Mycophenolic Acid MPA Glucuronide Metabol Assessment and Plan (1) Hypoglycemia: Status: Acute (2) UTI (urinary tract infection): Status: Acute Plan 82-year-old male with a past medical history hypertension, hyperlipidemia, BPH, CKD, history of kidney transplant, dry eye syndrome, vitamin-D deficiency, dysphagia, spinal stenosis, right arm AV fistula, CAD, hyperparathyroidism, macular degeneration, squamous cell carcinoma of the trunk, 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 varicose veins, dementia, residential resident presented to the hospital today with a chief complaint of altered mental status/ hypoglycemia.? ? Altered mental status: Likely toxic metabolic encephalopathy from hypoglycemia. He is back to baseline Hypoglycemia:? Patient had recurrent hypoglycemia.? Unclear etiology. ? Seizure precautions. hypoglycemia panel- insulin, proinsulin,? C-peptide,beta hydroxybutyrate-pending Hba1c levels 4.8. also cosyntrop test was done late afternoon and labs were sent. d/w Dr voss-need to place on fasting with po free water when fs drop below 60 -need check bmp,c peptide,proinsulin,insulin ,beta hydroxybutyrate,CORTISOL and Acth levels before givin dextrose and fluids and food. Endocrine follow-up on outpatient basis if this doesn't resolved UTI: follow culture?-pseudomonas : switched to iv levaquin . Urinary retention:? Patient had urinary retention about 1200 cc.? George catheter placed.? Likely in the setting of UTI.? Will also consult Urology. DEMETRIUS on CKD s/p renal transplant, Creatine is down to normal with IVF. Continue immunosupresives (mycophenolate, cyclosporine), nephro to follow History of BPH:? Continue home dutasteride, Flomax. history of dementia with behavioral disturbances: Continue home escitalopram, lamotrigine, trazodone History of hypertension:? Continue home losartan, verapamil DVT prophylaxis:? Subcu heparin Code status:? DNR / DNI.? Patient has molst form. Inpatient need:severe hypoglycemia -needs fasting monitering and above workup . Quality Stroke Does the patient have a stroke diagnosis?: No VTE Prior VTE?: No VTE Risk Level:: Medical - moderate - high VTE Device Contraindication: Treatment Not Indicated VTE Drug Contraindication: N/A - Med Ordered
[2022-02-09 16:00] VITALS: BP 136/63; PULSE 75; RESP 17; TEMP 36.8; O2SAT 98
[2022-02-09 16:52] LABS: Glucose, Whole Blood 106 mg/dL (60-115)
[2022-02-09] MEDS: traZODone HCL 100 MG TABLET PO (18:07)
[2022-02-09] MEDS: Tamsulosin HCL 0.4 MG CAPSULE 0.8 MG PO (18:09)
--- NOTE | 2022-02-09 18:28 | PM.PNNEP ---
Subjective Subjective Date of Service: 02/09/22 Interval history: Seen and examined, events noted Physical Exam Vital Signs: Vital Signs: Last Vital Signs Temp 98.2 F 02/09/22 16:00 Pulse 75 02/09/22 16:00 Resp 17 02/09/22 16:00 BP 136/63 02/09/22 16:00 Pulse Ox 98 02/09/22 16:00 O2 Del Method 02/09/22 16:00 BMI result Body Mass Index 26.4 Const: General: no acute distress HEENT: Head: Yes normal to inspection Eyes: EOM: EOMs intact bilaterally Neck: Neck: Yes supple Chest: Chest palpation & inspection: normal inspection of the chest Resp: Effort & Inspection: normal respiratory effort and able to speak in complete sentences Auscultation: diminished lung sounds Cardio: Jugular venous distension: no JVD Rate: regular rate GI: Palpation (GI): Soft to palpation Neuro: General: moves all extremities Objective Data Labs CBC & Chem 7: 02/02/22 05:42 02/06/22 18:49 Labs: Laboratory Results - last 24 hr 02/04/22 02/07/22 02/08/22 07:57 17:07 21:02 POC Glucose 112 Cortisol Baseline 4.9 Cortisol 30 Minute 27.7 Cortisol 60 Minute 34.9 Cortisol Lynda Time 1 1714 Cortisol Lynda Time 2 1754 Cortisol Lynda Time 3 1817 ACTH Comment See Below Mycophenolic Acid 0.9 L MPA Glucuronide Metabol 95.4 02/09/22 02/09/22 02/09/22 00:13 03:59 07:44 POC Glucose 103 79 85 Cortisol Baseline Cortisol 30 Minute Cortisol 60 Minute Cortisol Lynda Time 1 Cortisol Lynda Time 2 Cortisol Lynda Time 3 ACTH Comment Mycophenolic Acid MPA Glucuronide Metabol 02/09/22 02/09/22 11:00 16:15 POC Glucose 107 106 Cortisol Baseline Cortisol 30 Minute Cortisol 60 Minute Cortisol Lynda Time 1 Cortisol Lynda Time 2 Cortisol Lynda Time 3 ACTH Comment Mycophenolic Acid MPA Glucuronide Metabol Microbiology Microbiology Results: Microbiology 02/01/22 19:30 Blood - Venous Blood Culture - Final No growth after 5 days. 02/01/22 19:30 Blood - Venous Blood Culture - Final No growth after 5 days. 02/02/22 Unknown Urine Catheterized - Straight Catheter Urine Culture - Final Pseudomonas aeruginosa Procedures Date of Service Date of Service: 08/01/22 Assessment & Plan Assessment and plan (1) Renal transplant recipient: Status: Acute Assessment and Plan: 1. CKD 3: stable 2. ESRD s/pxpalnt, maintained on CSA/cellcept 3. Ur retention: being eval by urol REC: no cahnge in meds; will arrange f/u as outpt Time Spent With Patient Time: Total time spent is greater than 50% in coordination of care (as documented) at patient's floor/unit and/or counseling patient: Progress Note: Quality Stroke Does the patient have a stroke diagnosis?: No
[2022-02-09 20:29] LABS: Glucose, Whole Blood 93 mg/dL (60-115)
[2022-02-09 22:05] LABS: Glucose, Whole Blood 85 mg/dL (60-115)
[2022-02-10] VITALS: PULSE 80
[2022-02-10] MEDS: 0.9 % Sodium Chloride Flush 3 ML SYRINGE IVFLUSH ×3 (00:15→20:27)
[2022-02-10] MEDS: Piperacillin Sodium/Tazobactam 2.25 GM in 0.9 % Sodium Chloride 50 ML IV ×3 (00:15→13:16)
[2022-02-10] MEDS: Heparin Sodium,Porcine 5,000 UNIT/ML VIAL 5000 UNIT SUBCUT ×3 (00:15→17:27)
[2022-02-10 00:21] LABS: Glucose, Whole Blood 81 mg/dL (60-115)
[2022-02-10 02:08] LABS: Glucose, Whole Blood 83 mg/dL (60-115)
[2022-02-10 04:00] VITALS: BP 141/67; PULSE 78; RESP 16; TEMP 36.7; O2SAT 98
[2022-02-10 04:22] LABS: Glucose, Whole Blood 82 mg/dL (60-115)
[2022-02-10 06:05] LABS: Glucose, Whole Blood 87 mg/dL (60-115)
[2022-02-10 06:52] LABS: Med (ACTH) Time 1715
[2022-02-10 07:30] VITALS: BP 151/70; PULSE 71; RESP 17; TEMP 36.4; O2SAT 96
[2022-02-10 07:50] LABS: Glucose, Whole Blood 83 mg/dL (60-115)
[2022-02-10 08:00] LABS: Anion Gap 16 (12-20); Blood Urea Nitrogen 30 mg/dL (9-16); Calcium 8.5 mg/dL (8.4-10.2); Carbon Dioxide 20 mmol/L (22-29); Chloride 107 mmol/L (96-108); Creatinine Clr Calc Pharmacy 26.9; Estimated Glomerular Filt Rate 33; Glucose Random 86 mg/dL (60-115); Potassium 4.2 mmol/L (3.3-5.1); Sodium 139 mmol/L (135-145)
[2022-02-10] MEDS: lamoTRIgine 100 MG TABLET 250 MG PO (11:09)
[2022-02-10 11:11] LABS: Glucose, Whole Blood 84 mg/dL (60-115)
[2022-02-10] MEDS: calcitrioL 0.25 MCG CAPSULE PO (11:11)
[2022-02-10] MEDS: Aspirin Enteric Coated 81 MG TABLET.DR PO (11:11)
[2022-02-10] MEDS: Cyanocobalamin (Vitamin B-12) 1,000 MCG TABLET 1000 MCG PO (11:12)
[2022-02-10] MEDS: Escitalopram Oxalate 20 MG TABLET PO (11:12)
[2022-02-10] MEDS: buPROPion HCl XL 300 MG TAB.ER.24H PO (11:12)
[2022-02-10] MEDS: levoFLOXacin/D5W 500 MG/100 ML PIGGYBACK 100 MG IV (11:12)
[2022-02-10] MEDS: Cinacalcet HCl 30 MG TABLET PO (11:12)
[2022-02-10] MEDS: hydrALAZINE HCl 25 MG TABLET PO ×2 (11:12→20:25)
[2022-02-10 11:15] VITALS: BP 141/68; PULSE 75; RESP 17; TEMP 36.1; O2SAT 98
[2022-02-10] MEDS: Artificial Tears 15 ML DROPS 1 DROP EYE-BOTH (11:15)
[2022-02-10] MEDS: mycophenolate mofetiL 250 MG CAPSULE 500 MG PO ×2 (11:20→17:37)
[2022-02-10] MEDS: VerapamiL HCL SR 240 MG TABLET.ER PO (11:36)
--- NOTE | 2022-02-10 12:52 | P.CNUR_ITS ---
History of Present Illness Consult details Consult date: 02/10/22 Narrative: Referral to hospital for hypoglycemia found to have elevated creatinine. Found to have 600 cc in bladder. 02/02 catheter placed. Since over 500 cc would leave for 1 month 82-year-old male with a past medical history hypertension, hyperlipidemia, BPH, CKD, history of kidney transplant, dry eye syndrome, vitamin-D deficiency, dysphagia, spinal stenosis, right arm AV fistula, CAD, hyperparathyroidism, macular degeneration, squamous cell carcinoma of the trunk, basal cell carcinoma of the skin of left ER, varicose veins, dementia, prison resident presented to the hospital today with a chief complaint of altered mental status/ hypoglycemia Review of Systems 2 Constitutional: Constitutional: Reports as per HPI and Reports no additional constitutional complaints Cardiovascular: Cardiovascular: Reports as per HPI and Reports no additional cardiovascular complaints Respiratory: Respiratory: Reports as per HPI and Reports no additional respiratory complaints Gastrointestinal: Gastrointestinal: Reports as per HPI and Reports no additional gastrointestinal complaints Genitourinary: Genitourinary: Reports as per HPI Musculoskeletal: Musculoskeletal: Reports no additional musculoskeletal complaints and Reports as per HPI Neurologic: Reports system reviewed and no additional complaints, except as documented and Reports as per HPI [facility] Past Medical History Medical History (Updated 06/15/22 @ 21:12 by MARY Romero) BPH (benign prostatic hyperplasia) Regular astigmatism, bilateral Secondary hyperparathyroidism of renal origin Dry eye syndrome of unspecified lacrimal gland Insomnia, unspecified Vitamin D deficiency, unspecified Erythropoietin deficiency anemia Tinea unguium Unspecified hearing loss, bilateral Personal history of other diseases of urinary system Other ocular manifestations of vitamin A deficiency History of falling Epididymitis Other chronic allergic conjunctivitis Need for assistance with personal care Dysphagia, oral phase Surgical History Surgical History Renal transplant recipient Social History Social History Household Members: None Housing: [facility] Patient Tobacco Use Status: Former Tobacco user service: No Current occupational status: disabled Meds Allergies Allergy/AdvReac Type Severity Reaction Status Date / Time LOWELL Inhibitors Allergy Mild Unknown Verified 07/31/22 10:05 peanut Allergy Anaphylaxis Verified 07/31/22 10:05 Active Medications: Current Medications Acetaminophen (Acetaminophen 325 Mg Tablet) 650 mg PO Q6H PRN PRN Reason: Pain, Mild (Pain Scale 1-3) Last Admin: 02/04/22 08:52 Dose: 650 mg Artificial Tears (Artificial Tears 15 Ml Drops) 1 drop EYE-BOTH BID@09,1830 PRN PRN Reason: Dry Eye(S) Artificial Tears (Artificial Tears 15 Ml Drops) 1 drop EYE-BOTH Q4H PRN PRN Reason: dry eyes Last Admin: 02/10/22 11:15 Dose: 1 drop Aspirin (Aspirin Enteric Coated 81 Mg Tablet.Dr) 81 mg PO DAILY [facility] Last Admin: 02/10/22 11:11 Dose: 81 mg Bupropion HCl (Bupropion Hcl Xl 300 Mg Tab.Er.24h) 300 mg PO DAILY [facility] Last Admin: 02/10/22 11:12 Dose: 300 mg Calcitriol (Calcitriol 0.25 Mcg Capsule) 0.25 mcg PO DAILY [facility] Last Admin: 02/10/22 11:11 Dose: 0.25 mcg Cinacalcet (Cinacalcet Hcl 30 Mg Tablet) 30 mg PO DAILY [facility] Last Admin: 02/10/22 11:12 Dose: 30 mg Cyanocobalamin (Cyanocobalamin (Vitamin B-12) 1,000 Mcg Tablet) 1,000 mcg PO DAILY [facility] Last Admin: 02/10/22 11:12 Dose: 1,000 mcg Dextrose (Dextrose 50 % 25 Gm/50 Ml Syringe) 25 gm IVPUSH Q15M PRN; Protocol PRN Reason: per Hypoglycemia Standing Ord. Last Admin: 02/01/22 23:54 Dose: 25 gm Escitalopram Oxalate (Escitalopram Oxalate 20 Mg Tablet) 20 mg PO DAILY [facility] Last Admin: 02/10/22 11:12 Dose: 20 mg Glucose (Glucose Gel 15 Gm Gel..Gram.) 15 gm PO Q15M PRN; Protocol PRN Reason: per Hypoglycemia Standing Ord. Last Admin: 02/02/22 11:32 Dose: 15 gm Heparin Sodium (Porcine) (Heparin Sodium,Porcine 5,000 Unit/Ml Vial) 5,000 unit SUBCUT Q8H [facility] Last Admin: 02/10/22 11:11 Dose: 5,000 unit Hydralazine HCl (Hydralazine Hcl 25 Mg Tablet) 25 mg PO BID [facility]; Protocol Last Admin: 02/10/22 11:12 Dose: 25 mg Hydromorphone HCl (Hydromorphone Hcl 0.5 Mg/0.5 Ml Syringe) 0.5 mg IVPUSH Q4H PRN; Protocol PRN Reason: Pain, Severe (Pain Scale 7-10) Piperacillin Sod/Tazobactam (Sod 2.25 gm/ Sodium Chloride) 50 mls @ 100 mls/hr IV Q6H [facility] Last Infusion: 02/10/22 06:33 Dose: Infused Levofloxacin (Levaquin) 500 mg in 100 mls @ 100 mls/hr IV Q48H [facility] Last Admin: 02/10/22 11:12 Dose: 100 mls/hr Lamotrigine (Lamotrigine 100 Mg Tablet) 250 mg PO DAILY [facility] Last Admin: 02/10/22 11:09 Dose: 250 mg Losartan Potassium (Losartan Potassium 50 Mg Tablet) 50 mg PO DAILY [facility]; Protocol Last Admin: 02/04/22 08:29 Dose: 50 mg Melatonin (Melatonin 3 Mg Tablet) 6 mg PO BEDTIME PRN PRN Reason: Insomnia Mycophenolate Mofetil (Mycophenolate Mofetil 250 Mg Capsule) 500 mg PO BID@ [facility] Last Admin: 02/10/22 11:20 Dose: 500 mg Pt Own (Cyclosporine 100 Mg Capsules Half-Way Modified) 100 each PO BID@ [facility] Last Admin: 02/10/22 11:15 Dose: 100 each Pharmacy Consult (Consult Rx Perform Med Rec) 1 each MISCELLANE ONCE PRN PRN Reason: Consult order Senna (Sennosides 8.6 Mg Tablet) 17.2 mg PO BEDTIME PRN PRN Reason: Constipation Sodium Chloride (0.9 % Sodium Chloride Flush 3 Ml Syringe) 3 ml IVFLUSH QSHIFT [facility] Last Admin: 02/10/22 00:15 Dose: 3 ml Tamsulosin HCl (Tamsulosin Hcl 0.4 Mg Capsule) 0.8 mg PO DAILY@1829 [facility] Last Admin: 02/09/22 18:09 Dose: 0.8 mg Trazodone HCl (Trazodone Hcl 100 Mg Tablet) 100 mg PO DAILY@1829 [facility] Last Admin: 02/09/22 18:07 Dose: 100 mg Verapamil HCl (Verapamil Hcl Sr 240 Mg Tablet.Er) 240 mg PO DAILY [facility]; Protocol Last Admin: 02/10/22 11:36 Dose: 240 mg Home Medications Medication Instructions Recorded Confirmed Last Taken Type Icaps MV 1 tab PO DAILY 02/01/22 06/15/22 02/01/22 History aspirin 81 mg tablet,delayed 81 mg PO DAILY 02/01/22 06/15/22 02/01/22 History release bupropion HCl 300 mg 24 hr tablet, 1 tab PO DAILY 02/01/22 06/15/22 02/01/22 History extended release calcitriol 0.25 mcg capsule 1 cap PO DAILY 02/01/22 06/15/22 02/01/22 History cholecalciferol (vitamin D3) 1,250 1,250 mcg PO QMONTH 02/01/22 06/15/22 01/09/22 09:00 History mcg (50,000 unit) capsule cinacalcet 30 mg tablet 1 tab PO DAILY 02/01/22 06/15/22 02/01/22 History cyanocobalamin (vitamin B-12) 1,000 mcg PO DAILY 02/01/22 06/15/22 02/01/22 History 1,000 mcg tablet (Vitamin B-12) cyclosporine modified 100 mg 100 mg PO BID@02/01/22 06/15/22 02/01/22 History capsule dutasteride 0.5 mg capsule 1 cap PO DAILY 02/01/22 06/15/22 02/01/22 History escitalopram oxalate 20 mg tablet 1 tab PO DAILY 02/01/22 06/15/22 02/01/22 History glucosamine sulf dipotassium Cl 1 tab PO DAILY 02/01/22 06/15/22 02/01/22 History 500 mg-chondroitin sulf 400 mg tablet (Glucosamine-Chondroitin DS) lamotrigine 25 mg tablet 250 mg PO DAILY 02/01/22 06/15/22 02/01/22 History mycophenolate mofetil 250 mg 500 mg PO BID@02/01/22 06/15/22 02/01/22 History capsule (CellCept) peg 400-propylene glycol 0.4 %-0.3 1 drp ophthalmic (eye) BID@02/01/22 06/15/22 02/01/22 History % eye drops PRN Dry Eye(S) psyllium 1 tbsp PO DAILY@182902/01/22 06/15/22 02/01/22 History tamsulosin 0.4 mg capsule 2 cap PO DAILY@182902/01/22 06/15/22 02/01/22 History tramadol 50 mg tablet 1 tab PO BEDTIME 02/01/22 06/15/22 Unknown History trazodone 100 mg tablet 1 tab PO DAILY@182902/01/22 06/15/22 02/01/22 History verapamil 240 mg 24 hr 1 cap PO DAILY 02/01/22 06/15/22 02/01/22 History capsule,extended release Physical Exam 2 Vital Signs: Vital Signs: Last Vital Signs Temp 97 F 02/10/22 11:15 Pulse 75 02/10/22 11:15 Resp 17 02/10/22 11:15 BP 141/68 H 02/10/22 11:15 Pulse Ox 98 02/10/22 11:15 O2 Del Method 02/10/22 11:15 BMI result Body Mass Index 26.4 Const: General: cooperative, healthy appearing, comfortable and no acute distress Orientation/consciousness: patient oriented x3 HEENT: Face and sinus: Yes normal facial exam Mouth: moist mucous membranes Neck: Neck: Yes normal visual inspection, Yes full ROM and Yes trachea midline Chest: Chest palpation & inspection: normal inspection of the chest Resp: Effort & Inspection: normal respiratory effort, able to speak in complete sentences and no respiratory distress GI: Inspection: Yes normal to inspection Back/Spine/Pelvis: Cervical Spine: normal cervical lordosis Thoracic/Lumbar Spine: thoracic and lumbar spine normal to inspection Skin: General skin exam: no rashes or lesions noted Neuro: General: patient oriented x3, tone normal and moves all extremities Extrem: General: Yes normal to inspection and Yes capillary refill normal Results Labs 02/02/22 05:42 02/10/22 06:52 Labs: Abnormal lab results 02/04/22 02/10/22 Range/Units 07:57 06:52 Carbon Dioxide 20 L (22-29) mmol/L BUN 30 H (9-16) mg/dL Creatinine 1.94 H (0.5-1.4) mg/dL Mycophenolic Acid 0.9 L (1.0-3.5) mcg/mL BMP 02/10/22 06:52 Sodium 139 Potassium 4.2 Chloride 107 Carbon Dioxide 20 L BUN 30 H Creatinine 1.94 H Calcium 8.5 Urine 02/02/22 Range/Units 00:21 Urine Color YELLOW Urine Appearance HAZY Urine pH 6.0 (5.0-8.0) Ur Specific [place] 1.020 (1.005-1.025) Urine Protein NEG (NEG-TRACE) MG/DL Urine Glucose (UA) NEG (NEG) MG/DL All other labs normal. Assessment and Plan (1) BPH (benign prostatic hyperplasia): Status: Acute (2) Incomplete bladder emptying: Status: Acute Plan outpatienmt f/u Procedures Date of Service Date of Service: 02/10/22
--- NOTE | 2022-02-10 13:57 | HE.PHANOTE ---
Doreensyn Patient is on levaquin and zosyn. Patient has UTI susceptible to Levaquin. Suggested to Dr. Romero to anali champagne. mahi has been dc'd per
[2022-02-10 16:00] VITALS: BP 148/67; PULSE 82; RESP 14; TEMP 37.3; O2SAT 94
--- NOTE | 2022-02-10 16:21 | P.PNIM_ITS ---
Subjective Subjective Date of Service: 02/10/22 Interval History: f/u on AMS, Hypoglycemia, UTI Interval history: No more hypoglycemia since the 02/06 Review of Systems no fever no confusion Physical Exam Vital Signs: Vital Signs: Last Vital Signs Temp 99.2 F 02/10/22 16:00 Pulse 82 02/10/22 16:00 Resp 14 02/10/22 16:00 BP 148/67 H 02/10/22 16:00 Pulse Ox 94 02/10/22 16:00 O2 Del Method 02/10/22 16:00 BMI result Body Mass Index 26.4 Const: Other: General: AO X 3, no acute distress Resp: CTA bilateral CVS: S1,S2,RRR GI: +BS, NT, no distention Skin: No rash Neuro: motor grossly intact Psych: appropriate affect Objective Data Active Medications Acetaminophen (Acetaminophen 325 Mg Tablet) 650 mg PO Q6H PRN PRN Reason: Pain, Mild (Pain Scale 1-3) Last Admin: 02/04/22 08:52 Dose: 650 mg Documented By: NEYDA Artificial Tears (Artificial Tears 15 Ml Drops) 1 drop EYE-BOTH BID@1830 PRN PRN Reason: Dry Eye(S) Artificial Tears (Artificial Tears 15 Ml Drops) 1 drop EYE-BOTH Q4H PRN PRN Reason: dry eyes Last Admin: 02/10/22 11:15 Dose: 1 drop Documented By: SIRIA Aspirin (Aspirin Enteric Coated 81 Mg Tablet.Dr) 81 mg PO DAILY [facility] Last Admin: 02/10/22 11:11 Dose: 81 mg Documented By: SIRIA Bupropion HCl (Bupropion Hcl Xl 300 Mg Tab.Er.24h) 300 mg PO DAILY [facility] Last Admin: 02/10/22 11:12 Dose: 300 mg Documented By: SIRIA Calcitriol (Calcitriol 0.25 Mcg Capsule) 0.25 mcg PO DAILY [facility] Last Admin: 02/10/22 11:11 Dose: 0.25 mcg Documented By: SIRIA Cinacalcet (Cinacalcet Hcl 30 Mg Tablet) 30 mg PO DAILY [facility] Last Admin: 02/10/22 11:12 Dose: 30 mg Documented By: SIRIA Cyanocobalamin (Cyanocobalamin (Vitamin B-12) 1,000 Mcg Tablet) 1,000 mcg PO DAILY [facility] Last Admin: 02/10/22 11:12 Dose: 1,000 mcg Documented By: SIRIA Dextrose (Dextrose 50 % 25 Gm/50 Ml Syringe) 25 gm IVPUSH Q15M PRN; Protocol PRN Reason: per Hypoglycemia Standing Ord. Last Admin: 02/01/22 23:54 Dose: 25 gm Documented By: JUAN Escitalopram Oxalate (Escitalopram Oxalate 20 Mg Tablet) 20 mg PO DAILY [facility] Last Admin: 02/10/22 11:12 Dose: 20 mg Documented By: SIRIA Glucose (Glucose Gel 15 Gm Gel..Gram.) 15 gm PO Q15M PRN; Protocol PRN Reason: per Hypoglycemia Standing Ord. Last Admin: 02/02/22 11:32 Dose: 15 gm Documented By: GWYN Heparin Sodium (Porcine) (Heparin Sodium,Porcine 5,000 Unit/Ml Vial) 5,000 unit SUBCUT Q8H [facility] Last Admin: 02/10/22 11:11 Dose: 5,000 unit Documented By: SIRIA Hydralazine HCl (Hydralazine Hcl 25 Mg Tablet) 25 mg PO BID [facility]; Protocol Last Admin: 02/10/22 11:12 Dose: 25 mg Documented By: SIRIA Hydromorphone HCl (Hydromorphone Hcl 0.5 Mg/0.5 Ml Syringe) 0.5 mg IVPUSH Q4H PRN; Protocol PRN Reason: Pain, Severe (Pain Scale 7-10) Levofloxacin (Levaquin) 500 mg in 100 mls @ 100 mls/hr IV Q48H [facility] Last Infusion: 02/10/22 13:26 Dose: 0 mls/hr Documented By: SIRIA Lamotrigine (Lamotrigine 100 Mg Tablet) 250 mg PO DAILY [facility] Last Admin: 02/10/22 11:09 Dose: 250 mg Documented By: SIRIA Losartan Potassium (Losartan Potassium 50 Mg Tablet) 50 mg PO DAILY [facility]; Protocol Last Admin: 02/04/22 08:29 Dose: 50 mg Documented By: NEYDA Melatonin (Melatonin 3 Mg Tablet) 6 mg PO BEDTIME PRN PRN Reason: Insomnia Mycophenolate Mofetil (Mycophenolate Mofetil 250 Mg Capsule) 500 mg PO BID@1830 [facility] Last Admin: 02/10/22 11:20 Dose: 500 mg Documented By: SIRIA Pt Own (Cyclosporine 100 Mg Capsules [facility] Modified) 100 each PO BID@ [facility] Last Admin: 02/10/22 11:15 Dose: 100 each Documented By: SIRIA Pharmacy Consult (Consult Rx Perform Med Rec) 1 each MISCELLANE ONCE PRN PRN Reason: Consult order Senna (Sennosides 8.6 Mg Tablet) 17.2 mg PO BEDTIME PRN PRN Reason: Constipation Sodium Chloride (0.9 % Sodium Chloride Flush 3 Ml Syringe) 3 ml IVFLUSH QSHIFT [facility] Last Admin: 02/10/22 13:24 Dose: 3 ml Documented By: SIRIA Tamsulosin HCl (Tamsulosin Hcl 0.4 Mg Capsule) 0.8 mg PO DAILY@1829 [facility] Last Admin: 02/09/22 18:09 Dose: 0.8 mg Documented By: CHRISTA Trazodone HCl (Trazodone Hcl 100 Mg Tablet) 100 mg PO DAILY@1829 [facility] Last Admin: 02/09/22 18:07 Dose: 100 mg Documented By: CHRISTA Verapamil HCl (Verapamil Hcl Sr 240 Mg Tablet.Er) 240 mg PO DAILY [facility]; Protocol Last Admin: 02/10/22 11:36 Dose: 240 mg Documented By: SIRIA Labs CBC & Chem 7: 02/02/22 05:42 02/10/22 06:52 Labs: Laboratory Results - last 24 hr 02/07/22 02/09/22 02/09/22 17:07 16:15 19:40 Anion Gap Estim Creat Clear Calc Estimated GFR POC Glucose 106 93 Random Glucose Calcium ACTH Resp to Cosyntrop 1715 02/09/22 02/10/22 02/10/22 22:02 00:15 02:04 Anion Gap Estim Creat Clear Calc Estimated GFR POC Glucose 85 81 83 Random Glucose Calcium ACTH Resp to Cosyntrop 02/10/22 02/10/22 02/10/22 04:15 06:00 06:52 Anion Gap 16 Estim Creat Clear Calc 26.9 Estimated GFR 33 POC Glucose 82 87 Random Glucose 86 D Calcium 8.5 ACTH Resp to Cosyntrop 02/10/22 02/10/22 07:40 11:02 Anion Gap Estim Creat Clear Calc Estimated GFR POC Glucose 83 84 Random Glucose Calcium ACTH Resp to Cosyntrop Assessment and Plan (1) Hypoglycemia: Status: Acute (2) UTI (urinary tract infection): Status: Acute Plan 82-year-old male with a past medical history hypertension, hyperlipidemia, BPH, CKD, history of kidney transplant, dry eye syndrome, vitamin-D deficiency, dysphagia, spinal stenosis, right arm AV fistula, CAD, hyperparathyroidism, macular degeneration, squamous cell carcinoma of the trunk, 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 varicose veins, dementia, [facility] resident presented to the hospital today with a chief complaint of altered mental status/ hypoglycemia.? ? Altered mental status: Likely toxic metabolic encephalopathy from hypoglycemia. He is back to baseline Hypoglycemia:?etiology unclear but seems to have resolved. Hypoglycemia work up pending Endocrine follow-up on outpatient basis if this doesn't resolved UTI: follow culture?-pseudomonas : Levaquin to PO tomorrow Urinary retention:? Patient had urinary retention about 1200 cc.? George catheter placed.? Likely in the setting of UTI.? Will also consult Urology. DEMETRIUS on CKD s/p renal transplant, Creatine is down to normal with IVF. Continue immunosupresives (mycophenolate, cyclosporine), nephro to follow History of BPH:? Continue home dutasteride, Flomax. history of dementia with behavioral disturbances: Continue home escitalopram, lamotrigine, trazodone History of hypertension:? Continue home losartan, verapamil DVT prophylaxis:? Subcu heparin Code status:? DNR / DNI.? Patient has molst form. Inpatient need:severe hypoglycemia needing monitorin . Quality Stroke Does the patient have a stroke diagnosis?: No VTE Prior VTE?: No VTE Risk Level:: Medical - moderate - high VTE Device Contraindication: Treatment Not Indicated VTE Drug Contraindication: N/A - Med Ordered
[2022-02-10 16:33] LABS: Glucose, Whole Blood 65 mg/dL (60-115)
[2022-02-10] MEDS: traZODone HCL 100 MG TABLET PO (17:28)
[2022-02-10] MEDS: Tamsulosin HCL 0.4 MG CAPSULE 0.8 MG PO (17:28)
[2022-02-10 17:34] LABS: Glucose, Whole Blood 74 mg/dL (60-115)
--- NOTE | 2022-02-10 19:51 | PM.PNNEP ---
Subjective Subjective Date of Service: 02/10/22 Interval history: No more hypoglycemia since the 02/06 Physical Exam Vital Signs: Vital Signs: Last Vital Signs Temp 99.2 F 02/10/22 16:00 Pulse 82 02/10/22 16:00 Resp 14 02/10/22 16:00 BP 148/67 H 02/10/22 16:00 Pulse Ox 94 02/10/22 16:00 O2 Del Method 02/10/22 16:00 BMI result Body Mass Index 26.4 Const: General: no acute distress Eyes: EOM: EOMs intact bilaterally Neck: Neck: Yes supple Resp: Auscultation: diminished lung sounds Cardio: Rate: regular rate GI: Palpation (GI): Soft to palpation Neuro: General: moves all extremities Objective Data Labs CBC & Chem 7: 02/02/22 05:42 02/10/22 06:52 Labs: Laboratory Results - last 24 hr 02/07/22 02/09/22 02/09/22 17:07 19:40 22:02 Sodium Potassium Chloride Carbon Dioxide Anion Gap BUN Creatinine Estim Creat Clear Calc Estimated GFR POC Glucose 93 85 Random Glucose Calcium ACTH Resp to Cosyntrop 1715 02/10/22 02/10/22 02/10/22 00:15 02:04 04:15 Sodium Potassium Chloride Carbon Dioxide Anion Gap BUN Creatinine Estim Creat Clear Calc Estimated GFR POC Glucose 81 83 82 Random Glucose Calcium ACTH Resp to Cosyntrop 02/10/22 02/10/22 02/10/22 06:00 06:52 07:40 Sodium 139 Potassium 4.2 Chloride 107 Carbon Dioxide 20 L Anion Gap 16 BUN 30 H Creatinine 1.94 H Estim Creat Clear Calc 26.9 Estimated GFR 33 POC Glucose 87 83 Random Glucose 86 D Calcium 8.5 ACTH Resp to Cosyntrop 02/10/22 02/10/22 02/10/22 11:02 16:28 17:28 Sodium Potassium Chloride Carbon Dioxide Anion Gap BUN Creatinine Estim Creat Clear Calc Estimated GFR POC Glucose 84 65 74 Random Glucose Calcium ACTH Resp to Cosyntrop Microbiology Microbiology Results: Microbiology 02/01/22 19:30 Blood - Venous Blood Culture - Final No growth after 5 days. 02/01/22 19:30 Blood - Venous Blood Culture - Final No growth after 5 days. 02/02/22 Unknown Urine Catheterized - Straight Catheter Urine Culture - Final Pseudomonas aeruginosa Procedures Date of Service Date of Service: 02/10/22 Assessment & Plan Assessment and plan (1) Renal transplant recipient: Status: Acute Assessment and Plan: s/p kidney transplant in [place] for ESRD maintained on CSA and cellcept Renal functions stable; Tolerating ARB No change in immunosuppression Shall arrange office F/U when D/Cody Time Spent With Patient Time: Total time spent is greater than 50% in coordination of care (as documented) at patient's floor/unit and/or counseling patient: Progress Note: Quality Stroke Does the patient have a stroke diagnosis?: No
[2022-02-10 19:53] VITALS: BP 137/62; PULSE 83; RESP 14; TEMP 36.5; O2SAT 97
[2022-02-10 20:01] LABS: Glucose, Whole Blood 62 mg/dL (60-115)
[2022-02-11] VITALS: BP 138/60; PULSE 76; RESP 18; TEMP 37.2; O2SAT 99
[2022-02-11 00:25] LABS: Glucose, Whole Blood 59 mg/dL (60-115)
[2022-02-11] MEDS: Heparin Sodium,Porcine 5,000 UNIT/ML VIAL 5000 UNIT SUBCUT ×4 (02:04→23:58)
[2022-02-11 04:00] VITALS: BP 150/65; PULSE 81; RESP 20; TEMP 37; O2SAT 98
[2022-02-11 05:15] LABS: Proinsulin 18.3 pmol/L (< OR = 18.8)
[2022-02-11 05:16] LABS: Glucose, Whole Blood 62 mg/dL (60-115)
[2022-02-11 07:00] VITALS: BP 160/77; PULSE 74; RESP 20; TEMP 36.4; O2SAT 98
--- NOTE | 2022-02-11 07:12 | HO.PM.IMPN ---
Subjective Subjective Date of Service: 02/11/22 Interval History: f/u on AMS, Hypoglycemia, UTI Interval history: continues to have hypoglycemia, last episode at midnight was 59 Review of Systems no fever no confusion Physical Exam Vital Signs: Vital Signs: Last Vital Signs Temp 97.6 F 02/11/22 07:00 Pulse 74 02/11/22 07:00 Resp 20 02/11/22 07:00 BP 160/77 H 02/11/22 07:00 Pulse Ox 98 02/11/22 07:00 O2 Del Method 02/11/22 07:00 BMI result Body Mass Index 26.4 Const: Other: General: AO X 3, no acute distress Resp: CTA bilateral CVS: S1,S2,RRR GI: +BS, NT, no distention Skin: No rash Neuro: motor grossly intact Psych: appropriate affect Objective Data Active Medications Acetaminophen (Acetaminophen 325 Mg Tablet) 650 mg PO Q6H PRN PRN Reason: Pain, Mild (Pain Scale 1-3) Last Admin: 02/04/22 08:52 Dose: 650 mg Documented By: NEYDA Artificial Tears (Artificial Tears 15 Ml Drops) 1 drop EYE-BOTH BID@1830 PRN PRN Reason: Dry Eye(S) Artificial Tears (Artificial Tears 15 Ml Drops) 1 drop EYE-BOTH Q4H PRN PRN Reason: dry eyes Last Admin: 02/10/22 11:15 Dose: 1 drop Documented By: SIRIA Aspirin (Aspirin Enteric Coated 81 Mg Tablet.) 81 mg PO DAILY [facility] Last Admin: 02/10/22 11:11 Dose: 81 mg Documented By: SIRIA Bupropion HCl (Bupropion Hcl Xl 300 Mg Tab.Er.24h) 300 mg PO DAILY [facility] Last Admin: 02/10/22 11:12 Dose: 300 mg Documented By: SIRIA Calcitriol (Calcitriol 0.25 Mcg Capsule) 0.25 mcg PO DAILY [facility] Last Admin: 02/10/22 11:11 Dose: 0.25 mcg Documented By: SIRIA Cinacalcet (Cinacalcet Hcl 30 Mg Tablet) 30 mg PO DAILY [facility] Last Admin: 02/10/22 11:12 Dose: 30 mg Documented By: SIRIA Cyanocobalamin (Cyanocobalamin (Vitamin B-12) 1,000 Mcg Tablet) 1,000 mcg PO DAILY [facility] Last Admin: 02/10/22 11:12 Dose: 1,000 mcg Documented By: SIRIA Dextrose (Dextrose 50 % 25 Gm/50 Ml Syringe) 25 gm IVPUSH Q15M PRN; Protocol PRN Reason: per Hypoglycemia Standing Ord. Last Admin: 02/01/22 23:54 Dose: 25 gm Documented By: JUAN Escitalopram Oxalate (Escitalopram Oxalate 20 Mg Tablet) 20 mg PO DAILY [facility] Last Admin: 02/10/22 11:12 Dose: 20 mg Documented By: SIRIA Glucose (Glucose Gel 15 Gm Gel..Gram.) 15 gm PO Q15M PRN; Protocol PRN Reason: per Hypoglycemia Standing Ord. Last Admin: 02/02/22 11:32 Dose: 15 gm Documented By: GWYN Heparin Sodium (Porcine) (Heparin Sodium,Porcine 5,000 Unit/Ml Vial) 5,000 unit SUBCUT Q8H [facility] Last Admin: 02/11/22 02:04 Dose: 5,000 unit Documented By: MARCELL Hydralazine HCl (Hydralazine Hcl 25 Mg Tablet) 25 mg PO BID [facility]; Protocol Last Admin: 02/10/22 20:25 Dose: 25 mg Documented By: MARCELL Hydromorphone HCl (Hydromorphone Hcl 0.5 Mg/0.5 Ml Syringe) 0.5 mg IVPUSH Q4H PRN; Protocol PRN Reason: Pain, Severe (Pain Scale 7-10) Levofloxacin (Levaquin) 500 mg in 100 mls @ 100 mls/hr IV Q48H [facility] Last Infusion: 02/10/22 13:26 Dose: 0 mls/hr Documented By: SIRIA Lamotrigine (Lamotrigine 100 Mg Tablet) 250 mg PO DAILY [facility] Last Admin: 02/10/22 11:09 Dose: 250 mg Documented By: SIRIA Losartan Potassium (Losartan Potassium 50 Mg Tablet) 50 mg PO DAILY [facility]; Protocol Last Admin: 02/04/22 08:29 Dose: 50 mg Documented By: NEYDA Melatonin (Melatonin 3 Mg Tablet) 6 mg PO BEDTIME PRN PRN Reason: Insomnia Mycophenolate Mofetil (Mycophenolate Mofetil 250 Mg Capsule) 500 mg PO BID@1830 [facility] Last Admin: 02/10/22 17:37 Dose: 500 mg Documented By: LEE ANN Pt Own (Cyclosporine 100 Mg Capsules [facility] Modified) 100 each PO BID@ [facility] Last Admin: 02/10/22 17:37 Dose: 100 each Documented By: LEE ANN Pharmacy Consult (Consult Rx Perform Med Rec) 1 each MISCELLANE ONCE PRN PRN Reason: Consult order Senna (Sennosides 8.6 Mg Tablet) 17.2 mg PO BEDTIME PRN PRN Reason: Constipation Sodium Chloride (0.9 % Sodium Chloride Flush 3 Ml Syringe) 3 ml IVFLUSH QSHIFT [facility] Last Admin: 02/10/22 20:27 Dose: 3 ml Documented By: MARCELL Tamsulosin HCl (Tamsulosin Hcl 0.4 Mg Capsule) 0.8 mg PO DAILY@1829 [facility] Last Admin: 02/10/22 17:28 Dose: 0.8 mg Documented By: LEE ANN Trazodone HCl (Trazodone Hcl 100 Mg Tablet) 100 mg PO DAILY@1829 [facility] Last Admin: 02/10/22 17:28 Dose: 100 mg Documented By: LEE ANN Verapamil HCl (Verapamil Hcl Sr 240 Mg Tablet.Er) 240 mg PO DAILY [facility]; Protocol Last Admin: 02/10/22 11:36 Dose: 240 mg Documented By: SIRIA Labs CBC & Chem 7: 02/02/22 05:42 02/10/22 06:52 Labs: Laboratory Results - last 24 hr 02/03/22 02/10/22 02/10/22 04:38 06:52 07:40 Anion Gap 16 Estim Creat Clear Calc 26.9 Estimated GFR 33 POC Glucose 83 Random Glucose 86 D Proinsulin 18.3 Calcium 8.5 02/10/22 02/10/22 02/10/22 11:02 16:28 17:28 Anion Gap Estim Creat Clear Calc Estimated GFR POC Glucose 84 65 74 Random Glucose Proinsulin Calcium 02/10/22 02/11/22 02/11/22 19:56 00:17 04:16 Anion Gap Estim Creat Clear Calc Estimated GFR POC Glucose 62 59 L* 62 Random Glucose Proinsulin Calcium Assessment and Plan (1) Hypoglycemia: Status: Acute (2) UTI (urinary tract infection): Status: Acute Plan 82-year-old male with a past medical history hypertension, hyperlipidemia, BPH, CKD, history of kidney transplant, dry eye syndrome, vitamin-D deficiency, dysphagia, spinal stenosis, right arm AV fistula, CAD, hyperparathyroidism, macular degeneration, squamous cell carcinoma of the trunk, 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 varicose veins, dementia, [facility] resident presented to the hospital today with a chief complaint of altered mental status/ hypoglycemia.? ? Altered mental status: Likely toxic metabolic encephalopathy from hypoglycemia. He is back to baseline Hypoglycemia:?etiology unclear but seems to have resolved. Hypoglycemia work up pending Endocrine follow-up on outpatient basis if this doesn't resolved UTI: follow culture?-pseudomonas : Levaquin to PO tomorrow Urinary retention:? Patient had urinary retention about 1200 cc.? George catheter placed.? Likely in the setting of UTI.? Will also consult Urology. DEMETRIUS on CKD s/p renal transplant, Creatine is down to normal with IVF. Continue immunosupresives (mycophenolate, cyclosporine), nephro to follow History of BPH:? Continue home dutasteride, Flomax. history of dementia with behavioral disturbances: Continue home escitalopram, lamotrigine, trazodone History of hypertension:? Continue home losartan, verapamil DVT prophylaxis:? Subcu heparin Code status:? DNR / DNI.? Patient has molst form. Inpatient need:severe hypoglycemia needing monitoring and glucose replacement . Quality Stroke Does the patient have a stroke diagnosis?: No VTE Prior VTE?: No VTE Risk Level:: Medical - moderate - high VTE Device Contraindication: Treatment Not Indicated VTE Drug Contraindication: N/A - Med Ordered
[2022-02-11 07:37] LABS: Glucose, Whole Blood 66 mg/dL (60-115)
[2022-02-11] MEDS: Cinacalcet HCl 30 MG TABLET PO (09:22)
[2022-02-11] MEDS: lamoTRIgine 100 MG TABLET 250 MG PO (09:22)
[2022-02-11] MEDS: hydrALAZINE HCl 25 MG TABLET PO ×2 (09:23→21:59)
[2022-02-11] MEDS: Aspirin Enteric Coated 81 MG TABLET.DR PO (09:23)
[2022-02-11] MEDS: calcitrioL 0.25 MCG CAPSULE PO (09:23)
[2022-02-11] MEDS: levoFLOXacin 250 MG TABLET PO (09:23)
[2022-02-11] MEDS: Cyanocobalamin (Vitamin B-12) 1,000 MCG TABLET 1000 MCG PO (09:23)
[2022-02-11] MEDS: buPROPion HCl XL 300 MG TAB.ER.24H PO (09:23)
[2022-02-11] MEDS: Escitalopram Oxalate 20 MG TABLET PO (09:23)
[2022-02-11] MEDS: VerapamiL HCL SR 240 MG TABLET.ER PO (09:23)
[2022-02-11] MEDS: Artificial Tears 15 ML DROPS 1 DROP EYE-BOTH ×3 (09:26→21:59)
[2022-02-11] MEDS: mycophenolate mofetiL 250 MG CAPSULE 500 MG PO ×2 (09:26→17:13)
[2022-02-11] MEDS: 0.9 % Sodium Chloride Flush 3 ML SYRINGE IVFLUSH ×3 (10:12→21:59)
[2022-02-11 11:48] VITALS: BP 135/63; PULSE 85; RESP 20; TEMP 36.7; O2SAT 97
[2022-02-11 12:07] LABS: Glucose, Whole Blood 55 mg/dL (60-115)
--- NOTE | 2022-02-11 12:47 | MHC.CM.PN ---
Per ROUNDS discussion, patient is Not yet medically cleared for discharge today r/t severe hypoglycemia needing monitoring and glucose replacement. Discharge continues to be return to [facility] via BLS. CM will continue to follow for D/C needs.
[2022-02-11 15:08] VITALS: BP 147/69; PULSE 76; RESP 18; TEMP 36.5; O2SAT 99
[2022-02-11 15:50] LABS: Glucose, Whole Blood 110 mg/dL (60-115)
--- NOTE | 2022-02-11 16:16 | PM.PNNEP ---
Subjective Subjective Date of Service: 02/11/22 Interval history: CHart Reviewed. Events noted. renal function stable. Physical Exam Vital Signs: Vital Signs: Last Vital Signs Temp 97.7 F 02/11/22 15:08 Pulse 76 02/11/22 15:08 Resp 18 02/11/22 15:08 BP 147/69 H 02/11/22 15:08 Pulse Ox 99 02/11/22 15:08 O2 Del Method 02/11/22 11:48 BMI result Body Mass Index 26.4 Const: General: cooperative and no acute distress HEENT: Head: Yes normocephalic Neck: Neck: Yes no JVD Resp: Effort & Inspection: able to speak in complete sentences Cardio: Jugular venous distension: no JVD Rate: regular rate Rhythm: regular rhythm GI: Auscultation: normal bowel sounds Neuro: General: moves all extremities Extrem: General: Yes no clubbing, cyanosis or edema Objective Data Labs CBC & Chem 7: 02/02/22 05:42 02/10/22 06:52 Labs: Laboratory Results - last 24 hr 02/03/22 02/10/22 02/10/22 04:38 16:28 17:28 POC Glucose 65 74 Proinsulin 18.3 02/10/22 02/11/22 02/11/22 19:56 00:17 04:16 POC Glucose 62 59 L* 62 Proinsulin 02/11/22 02/11/22 02/11/22 07:03 11:50 15:10 POC Glucose 66 55 L* 110 Proinsulin Microbiology Microbiology Results: Microbiology 02/01/22 19:30 Blood - Venous Blood Culture - Final No growth after 5 days. 02/01/22 19:30 Blood - Venous Blood Culture - Final No growth after 5 days. 02/02/22 Unknown Urine Catheterized - Straight Catheter Urine Culture - Final Pseudomonas aeruginosa Procedures Date of Service Date of Service: 02/11/22 Assessment & Plan Assessment and plan (1) Renal transplant recipient: Status: Acute Plan s/p kidney transplant in [place] for ESRD maintained on CSA and cellcept Renal functions stable; Tolerating ARB No change in immunosuppression Monitor renal panel, cyc levels and Mg levels. Shall arrange office F/U when D/Cody Time Spent With Patient Time: Total time spent is greater than 50% in coordination of care (as documented) at patient's floor/unit and/or counseling patient: Progress Note: Quality Stroke Does the patient have a stroke diagnosis?: No
[2022-02-11] MEDS: Tamsulosin HCL 0.4 MG CAPSULE 0.8 MG PO (17:14)
[2022-02-11] MEDS: traZODone HCL 100 MG TABLET PO (17:14)
[2022-02-11 19:55] VITALS: BP 133/71; PULSE 78; RESP 20; TEMP 37.1; O2SAT 98
[2022-02-11 20:07] LABS: Glucose, Whole Blood 101 mg/dL (60-115)
[2022-02-12] VITALS (7 sets, daily range): BP systolic 127–157; BP diastolic 54–75; PULSE 71–97; RESP 16–20; TEMP 36.1–37.6; O2SAT 96–98
[2022-02-12 00:12] LABS: Glucose, Whole Blood 78 mg/dL (60-115)
[2022-02-12 06:30] LABS: Glucose, Whole Blood 75 mg/dL (60-115)
[2022-02-12 07:52] LABS: Glucose, Whole Blood 83 mg/dL (60-115)
[2022-02-12] MEDS: Heparin Sodium,Porcine 5,000 UNIT/ML VIAL 5000 UNIT SUBCUT ×2 (09:30→17:50)
[2022-02-12] MEDS: 0.9 % Sodium Chloride Flush 3 ML SYRINGE IVFLUSH ×3 (09:30→20:03)
[2022-02-12] MEDS: Aspirin Enteric Coated 81 MG TABLET.DR PO (09:30)
[2022-02-12] MEDS: VerapamiL HCL SR 240 MG TABLET.ER PO (09:30)
[2022-02-12] MEDS: Artificial Tears 15 ML DROPS 1 DROP EYE-BOTH ×2 (09:30→17:49)
[2022-02-12] MEDS: levoFLOXacin 250 MG TABLET PO (09:30)
[2022-02-12] MEDS: calcitrioL 0.25 MCG CAPSULE PO (09:35)
[2022-02-12] MEDS: lamoTRIgine 100 MG TABLET 250 MG PO (09:35)
[2022-02-12] MEDS: buPROPion HCl XL 300 MG TAB.ER.24H PO (09:35)
[2022-02-12] MEDS: Cinacalcet HCl 30 MG TABLET PO (09:35)
[2022-02-12] MEDS: Cyanocobalamin (Vitamin B-12) 1,000 MCG TABLET 1000 MCG PO (09:35)
[2022-02-12] MEDS: hydrALAZINE HCl 25 MG TABLET PO ×2 (09:35→20:03)
[2022-02-12] MEDS: Escitalopram Oxalate 20 MG TABLET PO (09:35)
--- NOTE | 2022-02-12 09:52 | P.PNIM_ITS ---
Subjective Subjective Date of Service: 02/12/22 Interval History: f/u on AMS, Hypoglycemia, UTI Interval history: No hypoglycemia the last 16 hours, he's been eating Review of Systems no fever no confusion Physical Exam Vital Signs: Vital Signs: Last Vital Signs Temp 97.0 F 02/12/22 07:16 Pulse 73 02/12/22 07:16 Resp 20 02/12/22 07:16 BP 157/75 H 02/12/22 07:16 Pulse Ox 97 02/12/22 07:16 O2 Del Method 02/12/22 07:16 BMI result Body Mass Index 26.4 Const: Other: General: AO X 3, no acute distress Resp: CTA bilateral CVS: S1,S2,RRR GI: +BS, NT, no distention Skin: No rash Neuro: motor grossly intact Psych: appropriate affect Objective Data Active Medications Acetaminophen (Acetaminophen 325 Mg Tablet) 650 mg PO Q6H PRN PRN Reason: Pain, Mild (Pain Scale 1-3) Last Admin: 02/04/22 08:52 Dose: 650 mg Documented By: NEYDA Artificial Tears (Artificial Tears 15 Ml Drops) 1 drop EYE-BOTH BID@1830 PRN PRN Reason: Dry Eye(S) Artificial Tears (Artificial Tears 15 Ml Drops) 1 drop EYE-BOTH Q4H PRN PRN Reason: dry eyes Last Admin: 02/11/22 21:59 Dose: 1 drop Documented By: JONATHAN Aspirin (Aspirin Enteric Coated 81 Mg Tablet.) 81 mg PO DAILY [facility] Last Admin: 02/11/22 09:23 Dose: 81 mg Documented By: DELBERT Bupropion HCl (Bupropion Hcl Xl 300 Mg Tab.Er.24h) 300 mg PO DAILY [facility] Last Admin: 02/11/22 09:23 Dose: 300 mg Documented By: DELBERT Calcitriol (Calcitriol 0.25 Mcg Capsule) 0.25 mcg PO DAILY [facility] Last Admin: 02/11/22 09:23 Dose: 0.25 mcg Documented By: DELBERT Cinacalcet (Cinacalcet Hcl 30 Mg Tablet) 30 mg PO DAILY [facility] Last Admin: 02/11/22 09:22 Dose: 30 mg Documented By: DELBERT Cyanocobalamin (Cyanocobalamin (Vitamin B-12) 1,000 Mcg Tablet) 1,000 mcg PO DAILY [facility] Last Admin: 02/11/22 09:23 Dose: 1,000 mcg Documented By: DELBERT Dextrose (Dextrose 50 % 25 Gm/50 Ml Syringe) 25 gm IVPUSH Q15M PRN; Protocol PRN Reason: per Hypoglycemia Standing Ord. Last Admin: 02/01/22 23:54 Dose: 25 gm Documented By: JUAN Escitalopram Oxalate (Escitalopram Oxalate 20 Mg Tablet) 20 mg PO DAILY [facility] Last Admin: 02/11/22 09:23 Dose: 20 mg Documented By: DELBERT Glucose (Glucose Gel 15 Gm Gel..Gram.) 15 gm PO Q15M PRN; Protocol PRN Reason: per Hypoglycemia Standing Ord. Last Admin: 02/02/22 11:32 Dose: 15 gm Documented By: GWYN Heparin Sodium (Porcine) (Heparin Sodium,Porcine 5,000 Unit/Ml Vial) 5,000 unit SUBCUT Q8H [facility] Last Admin: 02/11/22 23:58 Dose: 5,000 unit Documented By: JONATHAN Hydralazine HCl (Hydralazine Hcl 25 Mg Tablet) 25 mg PO BID [facility]; Protocol Last Admin: 02/11/22 21:59 Dose: 25 mg Documented By: JONATHAN Hydromorphone HCl (Hydromorphone Hcl 0.5 Mg/0.5 Ml Syringe) 0.5 mg IVPUSH Q4H PRN; Protocol PRN Reason: Pain, Severe (Pain Scale 7-10) Lamotrigine (Lamotrigine 100 Mg Tablet) 250 mg PO DAILY [facility] Last Admin: 02/11/22 09:22 Dose: 250 mg Documented By: DELBERT Levofloxacin (Levofloxacin 250 Mg Tablet) 250 mg PO Q24H [facility] Last Admin: 02/11/22 09:23 Dose: 250 mg Documented By: DELBERT Losartan Potassium (Losartan Potassium 50 Mg Tablet) 50 mg PO DAILY [facility]; Protocol Last Admin: 02/04/22 08:29 Dose: 50 mg Documented By: LYSZ Melatonin (Melatonin 3 Mg Tablet) 6 mg PO BEDTIME PRN PRN Reason: Insomnia Mycophenolate Mofetil (Mycophenolate Mofetil 250 Mg Capsule) 500 mg PO BID@ [facility] Last Admin: 02/11/22 17:13 Dose: 500 mg Documented By: DELBERT Pt Own (Cyclosporine 100 Mg Capsules Half-Way Modified) 100 each PO BID@ [facility] Last Admin: 02/11/22 17:16 Dose: 100 each Documented By: DELBERT Pharmacy Consult (Consult Rx Perform Med Rec) 1 each MISCELLANE ONCE PRN PRN Reason: Consult order Senna (Sennosides 8.6 Mg Tablet) 17.2 mg PO BEDTIME PRN PRN Reason: Constipation Sodium Chloride (0.9 % Sodium Chloride Flush 3 Ml Syringe) 3 ml IVFLUSH QSHIFT [facility] Last Admin: 02/11/22 21:59 Dose: 3 ml Documented By: JOANTHAN Tamsulosin HCl (Tamsulosin Hcl 0.4 Mg Capsule) 0.8 mg PO DAILY@1829 [facility] Last Admin: 02/11/22 17:14 Dose: 0.8 mg Documented By: DELBERT Trazodone HCl (Trazodone Hcl 100 Mg Tablet) 100 mg PO DAILY@1829 [facility] Last Admin: 02/11/22 17:14 Dose: 100 mg Documented By: DELBERT Verapamil HCl (Verapamil Hcl Sr 240 Mg Tablet.Er) 240 mg PO DAILY [facility]; Protocol Last Admin: 02/11/22 09:23 Dose: 240 mg Documented By: DELBERT Labs CBC & Chem 7: 02/02/22 05:42 02/10/22 06:52 Labs: Laboratory Results - last 24 hr 02/11/22 02/11/22 02/11/22 11:50 15:10 20:02 POC Glucose 55 L* 110 101 02/12/22 02/12/22 02/12/22 00:07 04:38 07:47 POC Glucose 78 75 83 Assessment and Plan (1) Renal transplant recipient: Status: Acute (2) AMS (altered mental status): Status: Acute (3) UTI (urinary tract infection): Status: Acute Plan 82-year-old male with a past medical history hypertension, hyperlipidemia, BPH, CKD, history of kidney transplant, dry eye syndrome, vitamin-D deficiency, dysphagia, spinal stenosis, right arm AV fistula, CAD, hyperparathyroidism, macular degeneration, squamous cell carcinoma of the trunk, 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 varicose veins, dementia, assisted resident presented to the hospital today with a chief complaint of altered mental status/ hypoglycemia.? ? Altered mental status: Likely toxic metabolic encephalopathy from hypoglycemia. He is back to baseline Hypoglycemia:?etiology unclear but seems to be much better controlled Hypoglycemia work up pending Endocrine follow-up on outpatient basis if this doesn't resolved UTI: follow culture?-pseudomonas : Levaquin to PO tomorrow Urinary retention:? Patient had urinary retention about 1200 cc.? George catheter placed.? Likely in the setting of UTI.? Will also consult Urology. DEMETRIUS on CKD s/p renal transplant, Creatine is down to normal with IVF. Continue immunosupresives (mycophenolate, cyclosporine), nephro to follow History of BPH:? Continue home dutasteride, Flomax. history of dementia with behavioral disturbances: Continue home escitalopram, lamotrigine, trazodone History of hypertension:? Continue home losartan, verapamil DVT prophylaxis:? Subcu heparin Code status:? DNR / DNI.? Patient has molst form. Inpatient need:severe hypoglycemia needing monitoring and glucose replacement . Quality Stroke Does the patient have a stroke diagnosis?: No VTE Prior VTE?: No VTE Risk Level:: Medical - moderate - high VTE Device Contraindication: Treatment Not Indicated VTE Drug Contraindication: N/A - Med Ordered
[2022-02-12 12:03] LABS: Glucose, Whole Blood 108 mg/dL (60-115)
[2022-02-12] MEDS: mycophenolate mofetiL 250 MG CAPSULE 500 MG PO ×2 (12:15→17:50)
--- NOTE | 2022-02-12 13:57 | PM.PNNEP ---
Subjective Subjective Date of Service: 02/12/22 Interval history: Chart Reviewed. Events noted. Physical Exam Vital Signs: Vital Signs: Last Vital Signs Temp 98.4 F 02/12/22 12:00 Pulse 72 02/12/22 12:00 Resp 20 02/12/22 12:00 BP 149/69 H 02/12/22 12:00 Pulse Ox 98 02/12/22 12:00 O2 Del Method 02/12/22 12:00 BMI result Body Mass Index 26.4 Const: General: cooperative and no acute distress HEENT: Head: Yes normocephalic Neck: Neck: Yes no JVD Resp: Auscultation: clear to auscultation bilaterally Cardio: Jugular venous distension: no JVD Rate: regular rate Rhythm: regular rhythm Heart sounds: S1 normal heart sound present and S2 normal heart sound present GI: Auscultation: normal bowel sounds Neuro: General: moves all extremities Extrem: General: Yes no clubbing, cyanosis or edema Objective Data Labs CBC & Chem 7: 02/02/22 05:42 02/10/22 06:52 Labs: Laboratory Results - last 24 hr 02/11/22 02/11/22 02/12/22 15:10 20:02 00:07 POC Glucose 110 101 78 02/12/22 02/12/22 02/12/22 04:38 07:47 11:44 POC Glucose 75 83 108 Microbiology Microbiology Results: Microbiology 02/01/22 19:30 Blood - Venous Blood Culture - Final No growth after 5 days. 02/01/22 19:30 Blood - Venous Blood Culture - Final No growth after 5 days. 02/02/22 Unknown Urine Catheterized - Straight Catheter Urine Culture - Final Pseudomonas aeruginosa Procedures Date of Service Date of Service: 02/12/22 Assessment & Plan Assessment and plan (1) Hypomagnesemia: Status: Acute (2) Renal transplant recipient: Status: Acute Plan s/p kidney transplant in [place] for ESRD in 2004 maintained on CSA and cellcept Renal functions stable; Tolerating ARB No change in immunosuppression Monitor renal panel, cyc levels and Mg levels. Eventually may benefit from conversion to sirolimus. Can be determined as outpatient Shall arrange office F/U when D/Cody Time Spent With Patient Time: Total time spent is greater than 50% in coordination of care (as documented) at patient's floor/unit and/or counseling patient: Progress Note: Quality Stroke Does the patient have a stroke diagnosis?: No
[2022-02-12 15:40] LABS: Chlorpropamide None Detected; Glimepiride None Detected; Glipizide 120 ng/mL; Glyburide None Detected; Nateglinide None Detected; Pioglitazone None Detected; Repaglinide None Detected; Rosiglitazone None Detected; Tolazamide None Detected; Tolbutamide None Detected
[2022-02-12 15:42] LABS: Glucose, Whole Blood 105 mg/dL (60-115)
[2022-02-12] MEDS: traZODone HCL 100 MG TABLET PO (17:50)
[2022-02-12] MEDS: Tamsulosin HCL 0.4 MG CAPSULE 0.8 MG PO (17:50)
[2022-02-12 20:21] LABS: Glucose, Whole Blood 113 mg/dL (60-115)
[2022-02-13] MEDS: Heparin Sodium,Porcine 5,000 UNIT/ML VIAL 5000 UNIT SUBCUT ×3 (00:02→18:04)
[2022-02-13 00:11] LABS: Glucose, Whole Blood 107 mg/dL (60-115)
[2022-02-13 03:19] VITALS: BP 138/66; PULSE 74; RESP 18; TEMP 36.5; O2SAT 98
[2022-02-13 03:53] LABS: Glucose, Whole Blood 102 mg/dL (60-115)
[2022-02-13 08:00] VITALS: BP 168/77; PULSE 74; RESP 20; TEMP 36.6; O2SAT 98
[2022-02-13 08:00] LABS: Glucose, Whole Blood 90 mg/dL (60-115)
[2022-02-13] MEDS: 0.9 % Sodium Chloride Flush 3 ML SYRINGE IVFLUSH ×3 (08:17→20:04)
[2022-02-13] MEDS: Artificial Tears 15 ML DROPS 1 DROP EYE-BOTH ×3 (08:19→18:03)
[2022-02-13] MEDS: Cyanocobalamin (Vitamin B-12) 1,000 MCG TABLET 1000 MCG PO (08:21)
[2022-02-13] MEDS: hydrALAZINE HCl 25 MG TABLET PO ×2 (08:21→20:03)
[2022-02-13] MEDS: Escitalopram Oxalate 20 MG TABLET PO (08:21)
[2022-02-13] MEDS: buPROPion HCl XL 300 MG TAB.ER.24H PO (08:21)
[2022-02-13] MEDS: calcitrioL 0.25 MCG CAPSULE PO (08:22)
[2022-02-13] MEDS: Aspirin Enteric Coated 81 MG TABLET.DR PO (08:22)
[2022-02-13] MEDS: lamoTRIgine 100 MG TABLET 250 MG PO (08:22)
[2022-02-13] MEDS: VerapamiL HCL SR 240 MG TABLET.ER PO (08:39)
[2022-02-13] MEDS: Cinacalcet HCl 30 MG TABLET PO (08:39)
[2022-02-13] MEDS: mycophenolate mofetiL 250 MG CAPSULE 500 MG PO ×2 (08:53→20:11)
--- NOTE | 2022-02-13 10:39 | PM.PNNEP ---
Subjective Subjective Date of Service: 02/13/22 Interval history: Chart Reviewed. Events noted. Physical Exam Vital Signs: Vital Signs: Last Vital Signs Temp 98 F 02/13/22 08:00 Pulse 74 02/13/22 08:00 Resp 20 02/13/22 08:00 BP 168/77 H 02/13/22 08:00 Pulse Ox 98 02/13/22 08:00 O2 Del Method 02/13/22 08:00 BMI result Body Mass Index 26.4 Const: General: comfortable and no acute distress HEENT: Head: Yes normocephalic and Yes atraumatic Neck: Neck: Yes no JVD Resp: Auscultation: clear to auscultation bilaterally Cardio: Jugular venous distension: no JVD Rate: regular rate Rhythm: regular rhythm GI: Auscultation: normal bowel sounds Neuro: General: moves all extremities Objective Data Labs CBC & Chem 7: 02/02/22 05:42 02/10/22 06:52 Labs: Laboratory Results - last 24 hr 02/01/22 02/12/22 02/12/22 20:53 11:44 15:19 POC Glucose 108 105 Rosiglitazone None Detected Pioglitazone None Detected Nateglinide None Detected Repaglinide None Detected Chlorpropamide None Detected Tolbutamide None Detected Tolazamide None Detected Glimepiride None Detected Glipizide 120 Glibenclamide None Detected 02/12/22 02/13/22 02/13/22 19:51 00:00 03:48 POC Glucose 113 107 102 Rosiglitazone Pioglitazone Nateglinide Repaglinide Chlorpropamide Tolbutamide Tolazamide Glimepiride Glipizide Glibenclamide 02/13/22 07:55 POC Glucose 90 Rosiglitazone Pioglitazone Nateglinide Repaglinide Chlorpropamide Tolbutamide Tolazamide Glimepiride Glipizide Glibenclamide Microbiology Microbiology Results: Microbiology 02/01/22 19:30 Blood - Venous Blood Culture - Final No growth after 5 days. 02/01/22 19:30 Blood - Venous Blood Culture - Final No growth after 5 days. 02/02/22 Unknown Urine Catheterized - Straight Catheter Urine Culture - Final Pseudomonas aeruginosa Procedures Date of Service Date of Service: 02/13/22 Assessment & Plan Assessment and plan (1) Renal transplant recipient: Status: Acute Assessment and Plan: s/p kidney transplant in [place] for ESRD in 2004 maintained on CSA and cellcept Renal functions stable; Tolerating ARB No change in immunosuppression Monitor renal panel, cyc levels and Mg levels. May require Mg replacement. check cyclosporine levels in am 30 minutes prior to am dose. continues to h=be hypertensive which may indicate elevated levels of cyclos. Eventually may benefit from conversion to sirolimus. Can be determined as outpatient Shall arrange office F/U when D/Cody (2) Hypomagnesemia: Status: Acute Time Spent With Patient Time: Total time spent is greater than 50% in coordination of care (as documented) at patient's floor/unit and/or counseling patient: Progress Note: Quality Stroke Does the patient have a stroke diagnosis?: No
--- NOTE | 2022-02-13 11:03 | P.PNIM_ITS ---
Subjective Subjective Date of Service: 02/13/22 Interval History: f/u on AMS, Hypoglycemia, UTI Interval history: No hypoglycemia the last 24 hours, he's been eating Review of Systems no fever no confusion Physical Exam Vital Signs: Vital Signs: Last Vital Signs Temp 98 F 02/13/22 08:00 Pulse 74 02/13/22 08:00 Resp 20 02/13/22 08:00 BP 168/77 H 02/13/22 08:00 Pulse Ox 98 02/13/22 08:00 O2 Del Method 02/13/22 08:00 BMI result Body Mass Index 26.4 Const: Other: General: AO X 3, no acute distress Resp: CTA bilateral CVS: S1,S2,RRR GI: +BS, NT, no distention Skin: No rash Neuro: motor grossly intact Psych: appropriate affect Objective Data Active Medications Acetaminophen (Acetaminophen 325 Mg Tablet) 650 mg PO Q6H PRN PRN Reason: Pain, Mild (Pain Scale 1-3) Last Admin: 02/04/22 08:52 Dose: 650 mg Documented By: NEYDA Artificial Tears (Artificial Tears 15 Ml Drops) 1 drop EYE-BOTH BID@1830 PRN PRN Reason: Dry Eye(S) Artificial Tears (Artificial Tears 15 Ml Drops) 1 drop EYE-BOTH Q4H PRN PRN Reason: dry eyes Last Admin: 02/13/22 08:19 Dose: 1 drop Documented By: LISA Aspirin (Aspirin Enteric Coated 81 Mg Tablet.Dr) 81 mg PO DAILY [facility] Last Admin: 02/13/22 08:22 Dose: 81 mg Documented By: LISA Bupropion HCl (Bupropion Hcl Xl 300 Mg Tab.Er.24h) 300 mg PO DAILY [facility] Last Admin: 02/13/22 08:21 Dose: 300 mg Documented By: LISA Calcitriol (Calcitriol 0.25 Mcg Capsule) 0.25 mcg PO DAILY [facility] Last Admin: 02/13/22 08:22 Dose: 0.25 mcg Documented By: LISA Cinacalcet (Cinacalcet Hcl 30 Mg Tablet) 30 mg PO DAILY [facility] Last Admin: 02/13/22 08:39 Dose: 30 mg Documented By: LISA Cyanocobalamin (Cyanocobalamin (Vitamin B-12) 1,000 Mcg Tablet) 1,000 mcg PO DAILY [facility] Last Admin: 02/13/22 08:21 Dose: 1,000 mcg Documented By: LISA Dextrose (Dextrose 50 % 25 Gm/50 Ml Syringe) 25 gm IVPUSH Q15M PRN; Protocol PRN Reason: per Hypoglycemia Standing Ord. Last Admin: 02/01/22 23:54 Dose: 25 gm Documented By: JESSIKA-BERRJ Escitalopram Oxalate (Escitalopram Oxalate 20 Mg Tablet) 20 mg PO DAILY [facility] Last Admin: 02/13/22 08:21 Dose: 20 mg Documented By: LISA Glucose (Glucose Gel 15 Gm Gel..Gram.) 15 gm PO Q15M PRN; Protocol PRN Reason: per Hypoglycemia Standing Ord. Last Admin: 02/02/22 11:32 Dose: 15 gm Documented By: GWYN Heparin Sodium (Porcine) (Heparin Sodium,Porcine 5,000 Unit/Ml Vial) 5,000 unit SUBCUT Q8H [facility] Last Admin: 02/13/22 08:17 Dose: 5,000 unit Documented By: LISA Hydralazine HCl (Hydralazine Hcl 25 Mg Tablet) 25 mg PO BID [facility]; Protocol Last Admin: 02/13/22 08:21 Dose: 25 mg Documented By: LISA Hydromorphone HCl (Hydromorphone Hcl 0.5 Mg/0.5 Ml Syringe) 0.5 mg IVPUSH Q4H PRN; Protocol PRN Reason: Pain, Severe (Pain Scale 7-10) Lamotrigine (Lamotrigine 100 Mg Tablet) 250 mg PO DAILY [facility] Last Admin: 02/13/22 08:22 Dose: 250 mg Documented By: CTNICOLE Levofloxacin (Levofloxacin 250 Mg Tablet) 250 mg PO Q24H [facility] Last Admin: 02/12/22 09:30 Dose: 250 mg Documented By: LISA Losartan Potassium (Losartan Potassium 50 Mg Tablet) 50 mg PO DAILY [facility]; Pr otocol Last Admin: 02/04/22 08:29 Dose: 50 mg Documented By: NEYDA Melatonin (Melatonin 3 Mg Tablet) 6 mg PO BEDTIME PRN PRN Reason: Insomnia Mycophenolate Mofetil (Mycophenolate Mofetil 250 Mg Capsule) 500 mg PO BID@ [facility] Last Admin: 02/13/22 08:53 Dose: 500 mg Documented By: LISA Pt Own (Cyclosporine 100 Mg Capsules [facility] Modified) 100 each PO BID@ [facility] Last Admin: 02/13/22 08:20 Dose: 100 each Documented By: LISA Pharmacy Consult (Consult Rx Perform Med Rec) 1 each MISCELLANE ONCE PRN PRN Reason: Consult order Senna (Sennosides 8.6 Mg Tablet) 17.2 mg PO BEDTIME PRN PRN Reason: Constipation Sodium Chloride (0.9 % Sodium Chloride Flush 3 Ml Syringe) 3 ml IVFLUSH QSHIFT [facility] Last Admin: 02/13/22 08:17 Dose: 3 ml Documented By: LISA Tamsulosin HCl (Tamsulosin Hcl 0.4 Mg Capsule) 0.8 mg PO DAILY@1829 [facility] Last Admin: 02/12/22 17:50 Dose: 0.8 mg Documented By: LISA Trazodone HCl (Trazodone Hcl 100 Mg Tablet) 100 mg PO DAILY@1829 [facility] Last Admin: 02/12/22 17:50 Dose: 100 mg Documented By: LISA Verapamil HCl (Verapamil Hcl Sr 240 Mg Tablet.Er) 240 mg PO DAILY [facility]; Protocol Last Admin: 02/13/22 08:39 Dose: 240 mg Documented By: LISA Labs CBC & Chem 7: 02/02/22 05:42 02/10/22 06:52 Labs: Laboratory Results - last 24 hr 02/01/22 02/12/22 02/12/22 20:53 11:44 15:19 POC Glucose 108 105 Rosiglitazone None Detected Pioglitazone None Detected Nateglinide None Detected Repaglinide None Detected Chlorpropamide None Detected Tolbutamide None Detected Tolazamide None Detected Glimepiride None Detected Glipizide 120 Glibenclamide None Detected 02/12/22 02/13/22 02/13/22 19:51 00:00 03:48 POC Glucose 113 107 102 Rosiglitazone Pioglitazone Nateglinide Repaglinide Chlorpropamide Tolbutamide Tolazamide Glimepiride Glipizide Glibenclamide 02/13/22 07:55 POC Glucose 90 Rosiglitazone Pioglitazone Nateglinide Repaglinide Chlorpropamide Tolbutamide Tolazamide Glimepiride Glipizide Glibenclamide Assessment and Plan (1) Renal transplant recipient: Status: Acute (2) AMS (altered mental status): Status: Acute (3) UTI (urinary tract infection): Status: Acute Plan 82-year-old male with a past medical history hypertension, hyperlipidemia, BPH, CKD, history of kidney transplant, dry eye syndrome, vitamin-D deficiency, dysphagia, spinal stenosis, right arm AV fistula, CAD, hyperparathyroidism, macular degeneration, squamous cell carcinoma of the trunk, 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 varicose veins, dementia, prison resident presented to the hospital today with a chief complaint of altered mental status/ hypoglycemia.? ? Altered mental status: Likely toxic metabolic encephalopathy from hypoglycemia. Resolved and at baseline Hypoglycemia:?etiology unclear but seems to be much better controlled Hypoglycemia work up pending Endocrine follow-up on outpatient basis if this doesn't resolved UTI: follow culture?-pseudomonas : Levaquin PO Urinary retention:? Patient had urinary retention about 1200 cc.? George catheter placed.? Likely in the setting of UTI.?Uro recommend F. cath for 1 month, Flomax DEMETRIUS on CKD s/p renal transplant, Creatine is down to normal with IVF. Continue immunosupresives (mycophenolate, cyclosporine), nephro following History of BPH:? Continue home dutasteride, Flomax. history of dementia with behavioral disturbances: Continue home escitalopram, lamotrigine, trazodone History of hypertension:? Continue home losartan, verapamil DVT prophylaxis:? Subcu heparin Code status:? DNR / DNI.? Patient has molst form. Inpatient need:severe hypoglycemia needing ongoing monitoring and glucose replacement . Quality Stroke Does the patient have a stroke diagnosis?: No VTE Prior VTE?: No VTE Risk Level:: Medical - moderate - high VTE Device Contraindication: Treatment Not Indicated VTE Drug Contraindication: N/A - Med Ordered
--- NOTE | 2022-02-13 11:15 | MHC.CM.PN ---
Per ROUNDS discussion, Patient may be medically cleared tomorrow to return to LTC @ [facility] and CM will continue to follow.
[2022-02-13 11:52] VITALS: BP 116/54; PULSE 87; RESP 20; TEMP 36.9; O2SAT 97
[2022-02-13 11:54] LABS: Glucose, Whole Blood 124 mg/dL (60-115)
[2022-02-13] MEDS: levoFLOXacin 250 MG TABLET PO (14:00)
[2022-02-13 15:09] VITALS: BP 134/65; PULSE 77; RESP 18; TEMP 37.3; O2SAT 97
[2022-02-13 16:04] LABS: Glucose, Whole Blood 115 mg/dL (60-115)
[2022-02-13] MEDS: Tamsulosin HCL 0.4 MG CAPSULE 0.8 MG PO (18:03)
[2022-02-13] MEDS: traZODone HCL 100 MG TABLET PO (18:04)
[2022-02-13 20:00] VITALS: PULSE 76; RESP 18; TEMP 36.7; O2SAT 98
[2022-02-13 20:02] LABS: Glucose, Whole Blood 121 mg/dL (60-115)
[2022-02-13 21:00] VITALS: BP 149/79; PULSE 77; RESP 18; TEMP 36.5; O2SAT 97
[2022-02-14 03:36] LABS: Proinsulin 4.2 pmol/L (< OR = 18.8)
[2022-02-14 04:00] VITALS: BP 133/72; PULSE 80; RESP 18; TEMP 36.7; O2SAT 97
[2022-02-14 06:18] LABS: Glucose, Whole Blood 89 mg/dL (60-115)
[2022-02-14 07:43] VITALS: BP 134/63; PULSE 77; RESP 17; TEMP 36.6; O2SAT 98
[2022-02-14] MEDS: Artificial Tears 15 ML DROPS 1 DROP EYE-BOTH ×2 (07:52→17:42)
[2022-02-14] MEDS: Aspirin Enteric Coated 81 MG TABLET.DR PO (07:53)
[2022-02-14] MEDS: calcitrioL 0.25 MCG CAPSULE PO (07:53)
[2022-02-14] MEDS: buPROPion HCl XL 300 MG TAB.ER.24H PO (07:54)
[2022-02-14] MEDS: Cyanocobalamin (Vitamin B-12) 1,000 MCG TABLET 1000 MCG PO (07:54)
[2022-02-14] MEDS: mycophenolate mofetiL 250 MG CAPSULE 500 MG PO ×2 (07:54→17:42)
[2022-02-14] MEDS: Cinacalcet HCl 30 MG TABLET PO (07:54)
[2022-02-14 07:55] LABS: Glucose, Whole Blood 89 mg/dL (60-115)
[2022-02-14] MEDS: Heparin Sodium,Porcine 5,000 UNIT/ML VIAL 5000 UNIT SUBCUT ×2 (07:55→15:39)
[2022-02-14] MEDS: VerapamiL HCL SR 240 MG TABLET.ER PO (07:55)
[2022-02-14] MEDS: hydrALAZINE HCl 25 MG TABLET PO ×2 (07:55→19:38)
[2022-02-14] MEDS: Escitalopram Oxalate 20 MG TABLET PO (07:55)
[2022-02-14] MEDS: lamoTRIgine 100 MG TABLET 250 MG PO (07:56)
[2022-02-14] MEDS: 0.9 % Sodium Chloride Flush 3 ML SYRINGE IVFLUSH ×3 (08:00→19:38)
--- NOTE | 2022-02-14 10:52 | PM.DS ---
DS: Providers Provider Date of Service: 02/14/22 Date of admission: 02/01/22 20:26 Primary care physician: Anastasiia Guzman MD Consults: 02/02/22 00:05 Consult to Urology Routine Consulting Provider: Andres Horowitz Reason for consultation: urine retnesion 02/02/22 03:02 Consult to Nephrology Routine Consulting Provider: Henry Kelley Reason for consultation: DEMETRIUS; hx renal transplant. DS: Diagnosis Discharge Diagnosis (1) Hypoglycemia: Status: Acute (2) UTI (urinary tract infection): Status: Acute (3) AMS (altered mental status): Status: Acute DS: Summary Hospital Course Hospital Course: Chief Complaint: AMS 82-year-old male with a past medical history hypertension, hyperlipidemia, BPH, CKD, history of kidney transplant, dry eye syndrome, vitamin-D deficiency, dysphagia, spinal stenosis, right arm AV fistula, CAD, hyperparathyroidism, macular degeneration, squamous cell carcinoma of the trunk, basal cell carcinoma of the skin of left ER, varicose veins, dementia, intermediate resident presented to the hospital today with a chief complaint of altered mental status/ hypoglycemia.? Spoke to the RN - PHURBU at the intermediate- who mentions that patient was noted to be slightly altered than his baseline; has fingerstick glucose checked and noted to have 50 of fingerstick glucose; subsequently EMS was called in and sent him to the hospital for further evaluation.? Denies patient complaining of any fever chills cough, abdominal pain.? Denies any fall or trauma.? Denies patient complaining of any chest pain palpitations.? ? Denied any seizure-like episode. Mentions that patient is usually able to tolerate regular food okay; walks with the help of a cane or walker.? Denies any numbness tingling or focal weakness.? At the time of my entry patient is alert and awake, oriented times 2; pleasantly confused. ? Denies any pain.? Reports he was feeling cold; has few blankets in place.? Review of all other systems is negative except mentioned above ER course: Per ER team patient on presentation noted to be alert and awake; exam grossly nonfocal; CT head showed no acute findings; on labs noted to have creatinine of 1.6-unknown baseline; EKG was nonischemic; fingerstick glucose noted to be in 40s; patient was given glucagon and route by EMS; patient was placed on D10 after giving D50 IV push.? Patient continued to have episodes of hypoglycemia; placed on D10 drip; admitted to the hospital for further management. Hosopital course: ? Altered mental status: from toxic metabolic encephalopathy from hypoglycemia.? Resolved and at baseline Hypoglycemia:He is not diabetic and has not been malnourished. His sugar was as low as 22 he required IV glucose for days, work up included steroid stim test showing no evidence of adrenal insufficiency. Hemoglobin A1C level was 4.8 with esitimated average glucose of 91, commonly meds associated with hypoglycemia (rosiglitazone, nateglinide, repaglinide, Chlorpropamide, tolbutamide, tolazamide, glimerperide, glipizide,glibenclamide were all negative). Once sugar was stable and was taking of IV glucose, sugare level improved but will drop to 50s when strictly NPO.. His last hypoglycemia was 8/3 with sugar level of 55 while NPO, sugar level has since been 75 to 124. He should follow up with [facility], he should sugars check before all meals and at bed time. Any signs of hypoglycemia should prompt checking sugars and given juice of glucose gel. He no longer wants to be NPO for further testing and therefore has been eating and not observed to have low sugar the last 3 days UTI: follow culture?-pseudomonas : Has completed treatment with Levaquin Urinary retention:? Patient had urinary retention about 1200 cc.? George catheter placed.? Likely in the setting of UTI.?Uro recommend F. cath for 1 month, Flomax.. Follow up with Dr. Horowitz in a month DEMETRIUS on CKD s/p renal transplant, Creatine is down to normal with IVF. Continue immunosupresives (mycophenolate, cyclosporine), nephro following, follow up with Nephrology on outpatient basis History of BPH:? Continue home dutasteride, Flomax. history of dementia with behavioral disturbances: Continue home escitalopram, lamotrigine, trazodone--H has not has any sings of agitation here History of hypertension:? Continue home losartan, verapamil Time Spent with Patient Time attestation: Total time spent providing and/or coordinating discharge services: Discharge coordination time: Greater than 30 minutes Quality: Safe Use of Opioids Does Pt have an Active Cancer Diagnosis on the Problem List?: No Quality: Stroke Does the patient have a stroke diagnosis?: No Physical Exam Vital Signs: Vital Signs: Last Vital Signs Temp 97.9 F 02/14/22 07:43 Pulse 77 02/14/22 07:43 Resp 17 02/14/22 07:43 BP 134/63 02/14/22 07:43 Pulse Ox 98 02/14/22 07:43 O2 Del Method 02/14/22 07:43 BMI result Body Mass Index 26.4 DS: Data Data Completed and Pending Labs on day of discharge: Laboratory Results - last 24 hr 02/05/22 02/06/22 02/13/22 12:10 18:49 11:50 POC Glucose 124 H Proinsulin 4.2 Ref Lab Test Result SEE COMMENT 02/13/22 02/13/22 02/14/22 15:56 19:53 06:15 POC Glucose 115 121 H 89 Proinsulin Ref Lab Test Result 02/14/22 07:45 POC Glucose 89 Proinsulin Ref Lab Test Result Discharge Plan Discharge Anticipated Discharge Date/Time: 02/14/22 10:41 Patient Disposition: Xfer [facility] Discharge Diagnosis: Hypoglycemia, Encephalopathy [facility]: [facility] [Other] - 1 Week Anastasiia Guzman MD [Primary Care Provider] - 1 Week Discharge Medications: Continued losartan 50 mg tablet 1 tab PO DAILY mycophenolate mofetil [CellCept] 250 mg Capsule 500 mg PO BID@ cyanocobalamin (vitamin B-12) [Vitamin B-12] 1,000 mcg Tablet 1,000 mcg PO DAILY aspirin 81 mg Tablet,Delayed Release (Dr/Ec) 81 mg PO DAILY tramadol 50 mg tablet 1 tab PO BEDTIME lamotrigine 25 mg tablet 250 mg PO DAILY Metamucil Smooth Texture S/F Powder 1 tbsp PO DAILY@1829 Rx Instructions: mix into at least 8 oz of water or juice before administering tamsulosin 0.4 mg capsule 2 cap PO DAILY@1829 trazodone 100 mg tablet 1 tab PO DAILY@1829 cyclosporine modified 100 mg Capsule 100 mg PO BID@ calcitriol 0.25 mcg capsule 1 cap PO DAILY verapamil 240 mg capsule,ext rel. pellets 24 hr 1 cap PO DAILY escitalopram oxalate 20 mg tablet 1 tab PO DAILY dutasteride 0.5 mg capsule 1 cap PO DAILY Lubricating Relief 0.4-0.3 % Drops 1 drp OPHTHALMIC (EYE) BID@ PRN (Reason: Dry Eye(S)) bupropion HCl 300 mg tablet extended release 24 hr 1 tab PO DAILY cinacalcet 30 mg tablet 1 tab PO DAILY cholecalciferol (vitamin D3) 1,250 mcg (50,000 unit) Capsule 1,250 mcg PO QMONTH glucosamine reeder 2KCl-chondroit [Glucosamine-Chondroitin DS] 500-400 mg Tablet 1 tab PO DAILY Icaps MV 1 tab PO DAILY Discharge Orders: Discharge Order (Routine); Ordered 02/14/22 Ordered By: Calvin Romero Diet: Advance to usual diet Activity on Discharge: As tolerated Stand Alone Forms: Patient Portal Discharge page Care Plan Goals: prevnet hypoglycemia Health Concerns: Hypoglycemia Plan of Treatment: Close monitoring of sugars before meals and at bedtime and follow up with endocrionology on outpatient basis HE IS NOT DIABETIC BUT BECAUSE OF HYPOGLYCEMIA, CHECK SUGARS BEFORE MEALS AND AT BEDTIME. WITH ANY SIGNS OF HYPOGLYCEMIA, ( CONFUSION, SWEATY, ANXIOUS, SYNCOP AND OTHER) CHECK SUGAR PROMPTLY AND GIVE ORANGE JUICE OR GLUCOSE GEL OR TAB AND RECHECK DANILO GARCIA IS TO REMAIN IN PLACE FOR 1 MONTH AND TO FOLLOW UP WITH DR HOROWITZ TO FOLLOW UP WITH DR. SCHMITT SPREADING MACHINE OPERATOR IN A WEEK Assessment: as above
[2022-02-14 11:31] VITALS: BP 119/56; PULSE 77; RESP 17; TEMP 36.3; O2SAT 97
[2022-02-14 11:43] LABS: Glucose, Whole Blood 107 mg/dL (60-115)
[2022-02-14] MEDS: levoFLOXacin 250 MG TABLET PO (11:49)
[2022-02-14 12:20] LABS: COVID-19 Test Negative (Negative)
--- NOTE | 2022-02-14 12:47 | P.PNIM_ITS ---
Subjective Subjective Date of Service: 02/14/22 Interval History: f/u on AMS, Hypoglycemia, UTI Interval history: No hypoglycemia for 3 days now, no new issues Review of Systems no fever no confusion Physical Exam Vital Signs: Vital Signs: Last Vital Signs Temp 97.3 F 02/14/22 11:31 Pulse 77 02/14/22 11:31 Resp 17 02/14/22 11:31 BP 119/56 L 02/14/22 11:31 Pulse Ox 97 02/14/22 11:31 O2 Del Method 02/14/22 11:31 BMI result Body Mass Index 26.4 Const: Other: General: AO X 3, no acute distress Resp: CTA bilateral CVS: S1,S2,RRR GI: +BS, NT, no distention Skin: No rash Neuro: motor grossly intact Psych: appropriate affect Objective Data Active Medications Acetaminophen (Acetaminophen 325 Mg Tablet) 650 mg PO Q6H PRN PRN Reason: Pain, Mild (Pain Scale 1-3) Last Admin: 02/04/22 08:52 Dose: 650 mg Documented By: NEYDA Artificial Tears (Artificial Tears 15 Ml Drops) 1 drop EYE-BOTH BID@0 PRN PRN Reason: Dry Eye(S) Artificial Tears (Artificial Tears 15 Ml Drops) 1 drop EYE-BOTH Q4H PRN PRN Reason: dry eyes Last Admin: 02/14/22 07:52 Dose: 1 drop Documented By: SIRIA Aspirin (Aspirin Enteric Coated 81 Mg Tablet.) 81 mg PO DAILY [facility] Last Admin: 02/14/22 07:53 Dose: 81 mg Documented By: SIRIA Bupropion HCl (Bupropion Hcl Xl 300 Mg Tab.Er.24h) 300 mg PO DAILY [facility] Last Admin: 02/14/22 07:54 Dose: 300 mg Documented By: SIRIA Calcitriol (Calcitriol 0.25 Mcg Capsule) 0.25 mcg PO DAILY [facility] Last Admin: 02/14/22 07:53 Dose: 0.25 mcg Documented By: SIRIA Cinacalcet (Cinacalcet Hcl 30 Mg Tablet) 30 mg PO DAILY [facility] Last Admin: 02/14/22 07:54 Dose: 30 mg Documented By: SIRIA Cyanocobalamin (Cyanocobalamin (Vitamin B-12) 1,000 Mcg Tablet) 1,000 mcg PO DAILY [facility] Last Admin: 02/14/22 07:54 Dose: 1,000 mcg Documented By: SIRIA Dextrose (Dextrose 50 % 25 Gm/50 Ml Syringe) 25 gm IVPUSH Q15M PRN; Protocol PRN Reason: per Hypoglycemia Standing Ord. Last Admin: 02/01/22 23:54 Dose: 25 gm Documented By: JUAN Escitalopram Oxalate (Escitalopram Oxalate 20 Mg Tablet) 20 mg PO DAILY [facility] Last Admin: 02/14/22 07:55 Dose: 20 mg Documented By: SIRIA Glucose (Glucose Gel 15 Gm Gel..Gram.) 15 gm PO Q15M PRN; Protocol PRN Reason: per Hypoglycemia Standing Ord. Last Admin: 02/02/22 11:32 Dose: 15 gm Documented By: GWYN Heparin Sodium (Porcine) (Heparin Sodium,Porcine 5,000 Unit/Ml Vial) 5,000 unit SUBCUT Q8H [facility] Last Admin: 02/14/22 07:55 Dose: 5,000 unit Documented By: SIRIA Hydralazine HCl (Hydralazine Hcl 25 Mg Tablet) 25 mg PO BID [facility]; Protocol Last Admin: 02/14/22 07:55 Dose: 25 mg Documented By: SIRIA Hydromorphone HCl (Hydromorphone Hcl 0.5 Mg/0.5 Ml Syringe) 0.5 mg IVPUSH Q4H PRN; Protocol PRN Reason: Pain, Severe (Pain Scale 7-10) Lamotrigine (Lamotrigine 100 Mg Tablet) 250 mg PO DAILY [facility] Last Admin: 02/14/22 07:56 Dose: 250 mg Documented By: SIRIA Levofloxacin (Levofloxacin 250 Mg Tablet) 250 mg PO Q24H [facility] Last Admin: 02/14/22 11:49 Dose: 250 mg Documented By: SIRIA Losartan Potassium (Losartan Potassium 50 Mg Tablet) 50 mg PO DAILY [facility]; Protocol Last Admin: 02/04/22 08:29 Dose: 50 mg Documented By: NEYDA Melatonin (Melatonin 3 Mg Tablet) 6 mg PO BEDTIME PRN PRN Reason: Insomnia Mycophenolate Mofetil (Mycophenolate Mofetil 250 Mg Capsule) 500 mg PO BID@09,1830 [facility] Last Admin: 02/14/22 07:54 Dose: 500 mg Documented By: SIRIA Pt Own (Cyclosporine 100 Mg Capsules Retirement Modified) 100 each PO BID@ [facility] Last Admin: 02/14/22 07:52 Dose: 100 each Documented By: SIRIA Pharmacy Consult (Consult Rx Perform Med Rec) 1 each MISCELLANE ONCE PRN PRN Reason: Consult order Senna (Sennosides 8.6 Mg Tablet) 17.2 mg PO BEDTIME PRN PRN Reason: Constipation Sodium Chloride (0.9 % Sodium Chloride Flush 3 Ml Syringe) 3 ml IVFLUSH QSHIFT [facility] Last Admin: 02/14/22 08:00 Dose: 3 ml Documented By: SIRIA Tamsulosin HCl (Tamsulosin Hcl 0.4 Mg Capsule) 0.8 mg PO DAILY@1829 [facility] Last Admin: 02/13/22 18:03 Dose: 0.8 mg Documented By: LISA Trazodone HCl (Trazodone Hcl 100 Mg Tablet) 100 mg PO DAILY@1829 [facility] Last Admin: 02/13/22 18:04 Dose: 100 mg Documented By: LISA Verapamil HCl (Verapamil Hcl Sr 240 Mg Tablet.Er) 240 mg PO DAILY [facility]; Protocol Last Admin: 02/14/22 07:55 Dose: 240 mg Documented By: SIRIA Labs CBC & Chem 7: 02/02/22 05:42 02/10/22 06:52 Labs: Laboratory Results - last 24 hr 02/05/22 02/06/22 02/13/22 12:10 18:49 15:56 POC Glucose 115 Proinsulin 4.2 COVID-19 ([facility]A) COVID-19 Clin Com Ref Lab Test Result SEE COMMENT 02/13/22 02/14/22 02/14/22 19:53 06:15 07:45 POC Glucose 121 H 89 89 Proinsulin COVID-19 ([facility]) COVID-19 Clin Com Ref Lab Test Result 02/14/22 02/14/22 11:33 11:47 POC Glucose 107 Proinsulin COVID-19 ([facility]A) Negative COVID-19 Clin Com See Note Ref Lab Test Result Assessment and Plan (1) Hypoglycemia: Status: Acute Plan 82-year-old male with a past medical history hypertension, hyperlipidemia, BPH, CKD, history of kidney transplant, dry eye syndrome, vitamin-D deficiency, dysphagia, spinal stenosis, right arm AV fistula, CAD, hyperparathyroidism, macular degeneration, squamous cell carcinoma of the trunk, 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 varicose veins, dementia, care home resident presented to the hospital today with a chief complaint of altered mental status/ hypoglycemia.? ? Altered mental status: Likely toxic metabolic encephalopathy from hypoglycemia. Resolved and at baseline Hypoglycemia:?etiology unclear but seems to be much better controlled Outpatient endo follow up UTI: follow culture?-pseudomonas : Levaquin PO Urinary retention:? Patient had urinary retention about 1200 cc.? George catheter placed.? Likely in the setting of UTI.?Uro recommend F. cath for 1 month, Flomax DEMETRIUS on CKD s/p renal transplant, Creatine is down to normal with IVF. Continue immunosupresives (mycophenolate, cyclosporine), nephro following History of BPH:? Continue home dutasteride, Flomax. history of dementia with behavioral disturbances: Continue home escitalopram, lamotrigine, trazodone History of hypertension:? Continue home losartan, verapamil DVT prophylaxis:? Subcu heparin Code status:? DNR / DNI.? Patient has molst form. Inpatient need:severe hypoglycemia needing ongoing monitoring and glucose replacement Dispo: possible dc later if transportation by ambulance not an issue Quality Stroke Does the patient have a stroke diagnosis?: No VTE Prior VTE?: No VTE Risk Level:: Medical - moderate - high VTE Device Contraindication: Treatment Not Indicated VTE Drug Contraindication: N/A - Med Ordered
[2022-02-14] MEDS: traZODone HCL 100 MG TABLET PO (17:42)
[2022-02-14] MEDS: Tamsulosin HCL 0.4 MG CAPSULE 0.8 MG PO (17:42)
[2022-02-14] MEDS: Sennosides 8.6 MG TABLET 17.2 MG PO (17:47)
[2022-02-14 18:50] LABS: Glucose, Whole Blood 96 mg/dL (60-115)
[2022-02-14 19:30] VITALS: BP 137/66; PULSE 80; TEMP 36.4; O2SAT 97
[2022-02-14 20:26] LABS: Glucose, Whole Blood 107 mg/dL (60-115)
[2022-02-14 23:42] VITALS: PULSE 72
[2022-02-15 04:00] VITALS: BP 156/69; PULSE 78; RESP 14; TEMP 36.4; O2SAT 98
[2022-02-15 04:38] LABS: Glucose, Whole Blood 92 mg/dL (60-115)
[2022-02-15 07:45] VITALS: BP 155/70; PULSE 69; RESP 17; TEMP 37.2; O2SAT 98
[2022-02-15] MEDS: calcitrioL 0.25 MCG CAPSULE PO (07:45)
[2022-02-15] MEDS: buPROPion HCl XL 300 MG TAB.ER.24H PO (07:45)
[2022-02-15] MEDS: Cinacalcet HCl 30 MG TABLET PO (07:45)
[2022-02-15] MEDS: Escitalopram Oxalate 20 MG TABLET PO (07:46)
[2022-02-15] MEDS: Cyanocobalamin (Vitamin B-12) 1,000 MCG TABLET 1000 MCG PO (07:46)
[2022-02-15] MEDS: VerapamiL HCL SR 240 MG TABLET.ER PO (07:46)
[2022-02-15] MEDS: hydrALAZINE HCl 25 MG TABLET PO (07:46)
[2022-02-15] MEDS: Aspirin Enteric Coated 81 MG TABLET.DR PO (07:46)
[2022-02-15] MEDS: lamoTRIgine 100 MG TABLET 250 MG PO (07:47)
[2022-02-15] MEDS: Heparin Sodium,Porcine 5,000 UNIT/ML VIAL 5000 UNIT SUBCUT (07:47)
[2022-02-15] MEDS: 0.9 % Sodium Chloride Flush 3 ML SYRINGE IVFLUSH (07:52)
[2022-02-15] MEDS: mycophenolate mofetiL 250 MG CAPSULE 500 MG PO (08:07)
[2022-02-15 08:12] LABS: Glucose, Whole Blood 80 mg/dL (60-115)
--- NOTE | 2022-02-15 10:08 | PM.EVENT ---
Event Note Date of Service: 02/15/22 Event Note: Seen and examined today, doing well, no hypoglycemia, was not able to DC yesterday d/t transportation issues from EMS, no hypoglycemia overnight, feels well, vitals reviewed and unremarkable. Exam unchanged from yesterday. Will proceed with DC as outlined yesterday
== END 2022-02-15 10:26 | disposition skilled nursing facility (03) | DRG 640 ==
LOC: HO.ED 20:32 → HO.EDOVER 20:34 → HO.IMC 02-02 17:21
PROVIDERS: Internal Medicine; Internal Medicine Nephrology; Admitting Provider Hospitalist; Emergency Provider Emergency Medicine; PCP Internal Medicine; Visit Provider Internal Medicine
DX: E16.2 Hypoglycemia, unspecified (principal); G92.8 Other toxic encephalopathy; D84.821 Immunodeficiency due to drugs; N39.0 Urinary tract infection, site not specified; Z94.0 Kidney transplant status; F03.91 Unspecified dementia, unspecified severity, with behavioral disturbance; N17.9 Acute kidney failure, unspecified; Z66 Do not resuscitate; I25.10 Atherosclerotic heart disease of native coronary artery without angina pectoris; N18.30 Chronic kidney disease, stage 3 unspecified; N25.0 Renal osteodystrophy; D63.1 Anemia in chronic kidney disease; I12.9 Hypertensive chronic kidney disease with stage 1 through stage 4 chronic kidney disease, or unspecified chronic kidney disease; N40.1 Benign prostatic hyperplasia with lower urinary tract symptoms; R33.8 Other retention of urine; E83.42 Hypomagnesemia; R68.0 Hypothermia, not associated with low environmental temperature; Z20.822 Contact with and (suspected) exposure to COVID-19; Z91.010 Allergy to peanuts; Z79.82 Long term (current) use of aspirin; Z79.899 Other long term (current) drug therapy
CPT/HCPCS: 36415; 70450; 71045; 80048; 80076; 80158; 80180; 80337; 81001; 82010; 82310; 82533; 82728; 82947; 83036; 83525; 83540; 83605; 83690; 83735; 83880; 84100; 84206; 84443; 84484; 84681; 85025; 87040; 87086; 87088; 87186; 87635; 92610; 93005; 96365; 96366; 96367; 96375; 99285; C1758; J0696; J0834; J1100; J1610; J1956; J2543; J3475

== ENCOUNTER → 2022-02-01 20:26 | Outpatient (BNV) | payer MEDICARE, MEDICAID, SELFPAY | PROVIDERS: Admitting Provider Hospitalist; Emergency Provider Emergency Medicine; PCP Internal Medicine; Visit Provider Urology | DX: N40.0 Benign prostatic hyperplasia without lower urinary tract symptoms (principal); R33.9 Retention of urine, unspecified | CPT/HCPCS: 99499 ==

== ENCOUNTER 2022-03-25 15:18 | Emergency (ER) | payer MEDICARE, MEDICAID, SELFPAY ==
--- NOTE | ~2022-03-25 | XR_ITS ---
EXAMINATION: LEFT SHOULDER AND LEFT HUMERUS CLINICAL INFORMATION: Rule out fracture COMPARISON: None TECHNIQUE: 2 views of left humerus and 3 views of left shoulder FINDINGS: There is no evidence of fracture, dislocation, soft tissue abnormalities. Visualized elbow is intact also. XR/XR humerus LT IMPRESSION: No fractures seen
--- NOTE | ~2022-03-25 | CT_ITS ---
EXAMINATION: CT HEAD WITHOUT CONTRAST CLINICAL INFORMATION: Fall, on blood thinners 02/01/2022, also seen the study COMPARISON: None TECHNIQUE: Contiguous axial imaging was performed from the skull base to vertex without intravenous administration of contrast. This CT examination was performed using dose optimization techniques as appropriate, variously including the following: *Automated exposure control *Adjustment of mA and/or kV according to patient size (this includes techniques or standardized protocols for targeted exams where dose is matched to indication/reason for exam; i.e. extremities or head) *Use of iterative reconstruction technique DLP: 824 mGy-cm FINDINGS: There is no midline shift. There is no mass effect. There is no hemorrhage. The basal cisterns appear patent. The posterior fossa is grossly within normal limits. No extra-axial collection. Left frontal hematoma noted. Once again atrophy and scattered areas of white matter ischemic changes. No fracture is seen on the bone windows. CT/CT head/brain wo IV con IMPRESSION: Negative acute noncontrast CT of the brain.
--- NOTE | ~2022-03-25 | CT_ITS ---
Examination: CT of the cervical spine and head CT. Indication; fall. Comparison previous head CT dated 02/01/2022. Axial imaging with and sagittal reformatted images. This CT examination was performed using dose optimization techniques as appropriate, variously including the following: *Automated exposure control *Adjustment of mA and/or kV according to patient size (this includes techniques or standardized protocols for targeted exams where dose is matched to indication/reason for exam; i.e. extremities or head) *Use of iterative reconstruction technique. Radiation dose [address] brain; Motion renders this study nondiagnostic. There is no convincing evidence of midline shift or mass effect. There is soft tissue hematoma in the left frontal region There is atrophy and white matter ischemic change. CT cervical spine; There is significant degeneration. There is grade 1 anterolisthesis of C4 on C5 and likely fusion of C5-C6. There is likely compromise of the canal at C4-C5. Reversal of the normal lordosis at C5-C6. 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 No convincing evidence for fracture. Likely narrowing of the canal as described. Consider MRI to further evaluate if clinically indicated. Again no convincing evidence for an acute finding. The brain CT is nondiagnostic. There is motion which renders this study a nondiagnostic exam. There is a left frontal soft tissue hematoma. There is no evidence of midline shift or mass effect. Recommend repeat study
--- NOTE | ~2022-03-25 | XR_ITS ---
EXAMINATION: LEFT SHOULDER AND LEFT HUMERUS CLINICAL INFORMATION: Rule out fracture COMPARISON: None TECHNIQUE: 2 views of left humerus and 3 views of left shoulder FINDINGS: There is no evidence of fracture, dislocation, soft tissue abnormalities. Visualized elbow is intact also. XR/XR shoulder LT min 2V IMPRESSION: No fractures seen
--- NOTE | ~2022-03-25 | CT_ITS ---
Examination: CT of the cervical spine and head CT. Indication; fall. Comparison previous head CT dated 02/01/2022. Axial imaging with and sagittal reformatted images. This CT examination was performed using dose optimization techniques as appropriate, variously including the following: *Automated exposure control *Adjustment of mA and/or kV according to patient size (this includes techniques or standardized protocols for targeted exams where dose is matched to indication/reason for exam; i.e. extremities or head) *Use of iterative reconstruction technique. Radiation dose [address] brain; Motion renders this study nondiagnostic. There is no convincing evidence of midline shift or mass effect. There is soft tissue hematoma in the left frontal region There is atrophy and white matter ischemic change. CT cervical spine; There is significant degeneration. There is grade 1 anterolisthesis of C4 on C5 and likely fusion of C5-C6. There is likely compromise of the canal at C4-C5. Reversal of the normal lordosis at C5-C6. 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 No convincing evidence for fracture. Likely narrowing of the canal as described. Consider MRI to further evaluate if clinically indicated. Again no convincing evidence for an acute finding. The brain CT is nondiagnostic. There is motion which renders this study a nondiagnostic exam. There is a left frontal soft tissue hematoma. There is no evidence of midline shift or mass effect. Recommend repeat study
[2022-03-25 15:31] VITALS: BP 130/90; PULSE 80; O2SAT 96
[2022-03-25 15:47] VITALS: BP 167/72; PULSE 74; RESP 18; O2SAT 98; BMI 27.1
--- NOTE | 2022-03-25 18:27 | ED.FALL ---
HPI - Fall General Chief Complaint: Fall Stated Complaint: FALL @ SNF W/HEAD LAC Time Seen by Provider: 03/25/22 15:53 Source: patient Mode of arrival: ambulatory Limitations: no limitations History of Present Illness HPI Narrative: Patient comes to the emergency room complaining of fall. Patient states that he is on blood thinners but does not remember which one. Patient states he was a mechanical fall. Patient was walking outside, states that his left hip gave out, and landed on the pavement. Patient hit the left side of his forehead. Patient states that he did not lose consciousness, patient denies headache, no neck pain. Patient also complaining of left shoulder pain. Related Data Home Medications Medication Instructions Recorded Confirmed Icaps MV 1 tab PO DAILY 02/01/22 02/01/22 aspirin 81 mg tablet,delayed 81 mg PO DAILY 02/01/22 02/01/22 release bupropion HCl 300 mg 24 hr tablet, 1 tab PO DAILY 02/01/22 02/01/22 extended release calcitriol 0.25 mcg capsule 1 cap PO DAILY 02/01/22 02/01/22 cholecalciferol (vitamin D3) 1,250 1,250 mcg PO QMONTH 02/01/22 02/01/22 mcg (50,000 unit) capsule cinacalcet 30 mg tablet 1 tab PO DAILY 02/01/22 02/01/22 cyanocobalamin (vitamin B-12) 1,000 mcg PO DAILY 02/01/22 02/01/22 1,000 mcg tablet (Vitamin B-12) cyclosporine modified 100 mg 100 mg PO BID@02/01/22 02/01/22 capsule dutasteride 0.5 mg capsule 1 cap PO DAILY 02/01/22 02/01/22 escitalopram oxalate 20 mg tablet 1 tab PO DAILY 02/01/22 02/01/22 glucosamine sulf dipotassium Cl 1 tab PO DAILY 02/01/22 02/01/22 500 mg-chondroitin sulf 400 mg tablet (Glucosamine-Chondroitin DS) lamotrigine 25 mg tablet 250 mg PO DAILY 02/01/22 02/01/22 losartan 50 mg tablet 1 tab PO DAILY 02/01/22 02/01/22 mycophenolate mofetil 250 mg 500 mg PO BID@02/01/22 02/01/22 capsule (CellCept) peg 400-propylene glycol 0.4 %-0.3 1 drp ophthalmic (eye) BID@09,182902/01/22 02/01/22 % eye drops PRN Dry Eye(S) psyllium 1 tbsp PO DAILY@182902/01/22 02/01/22 tamsulosin 0.4 mg capsule 2 cap PO DAILY@182902/01/22 02/01/22 tramadol 50 mg tablet 1 tab PO BEDTIME 02/01/22 02/01/22 trazodone 100 mg tablet 1 tab PO DAILY@182902/01/22 02/01/22 verapamil 240 mg 24 hr 1 cap PO DAILY 02/01/22 02/01/22 capsule,extended release Allergies Allergy/AdvReac Type Severity Reaction Status Date / Time peanut Allergy Anaphylaxis Verified 02/01/22 18:36 Review of Systems Review of Systems: Constitutional : No Weight loss, No Fever, No Chills, No Night Sweats, No Fatigue, No Malaise ENT/Mouth : No Hearing loss, No Ear Pain, No Nasal Congestion, No Sinus Pain, No Hoarseness, No sore throat, No Rhinorrhea, No Swallowing Difficulty Eyes: No Eye Pain, No Swelling, No Redness, No Foreign Body, No Discharge, No Vision Changes Cardiovascular : No Chest Pain, No SOB, No Dyspnea on Exertion, No Orthopnea, No Edema, No Palpitations Respiratory : No Cough, No Sputum, No Wheezing, No Smoke Exposure, No Dyspnea Gastrointestinal : No Nausea, No Vomiting, No Diarrhea, No Constipation, No abdominal Pain, No Hematochezia, No Melena Genitourinary : no irregular bleeding, No Dysuria, No Urinary Frequency, No Hematuria, No Urinary Incontinence, No Urgency, No Flank Pain, No Urinary Flow Changes, No Hesitancy Musculoskeletal : Complaining of left shoulder pain, No Myalgias, No Joint Swelling Skin : No Skin Lesions, No rash complaining of an ecchymosis to the left side of the forehead Neuro : No Weakness, No Numbness, No Paresthesias, No Loss of Consciousness, No Dizziness, No Headache Psych : No Anxiety/Panic, No Depression, No SI/HI/AH/VH, No Social Issues, Heme/Lymph: No Bruising, No Bleeding,No Lymphadenopathy Endocrine : No Polyuria, No Polydipsia, No Temperature Intolerance PMFSH Past Medical History Surgical History (Updated 02/23/22 @ 00:02 by Whitney Moore) Renal transplant recipient Social History Social History Household Members: None Housing: Skilled Nursing Patient Tobacco Use Status: Former Tobacco user Use of substances other than those prescribed or required for medical reasons: No Advance Directives: No Advance Directives Information Provided: No service: No Current occupational status: disabled Physical Exam Vital Signs: Vital Signs: Last Vital Signs Pulse 74 03/25/22 15:47 Resp 18 03/25/22 15:47 BP 167/72 H 03/25/22 15:47 Pulse Ox 98 03/25/22 15:47 O2 Del Method 03/25/22 15:47 BMI result Body Mass Index 27.1 Const: Other: Appearance: Alert. Oriented X3. No acute distress. Eyes: Pupils equal, round and reactive to light. ENT: Pharynx normal. Neck: Normal inspection. Neck supple. No lymph nodes noted. No crepitus CVS: Normal heart rate and rhythm. Pulses normal. Normal S1 and S2, no C-spine tenderness, no palpable step-offs Respiratory: No respiratory distress. Breath sounds normal. No Wheezing. No rales Abdomen: Soft and nontender. No rigidity. No distention. Skin: Skin warm and dry. Normal skin color. Normal skin turgor. Large hematoma to the left side of the forehead. Extremities: No lower extremity edema. No Lacerations. No Rash. Pain to palpation to the left shoulder and left humerus. Neuro: Oriented X 3. No motor deficit. No sensory deficit. Moving all extremities. No slurred speech. CN 2 through 12 grossly intact Psych: calm, cooperative, normal affect Course Course Course Narrative: Initial CT scan is nondiagnostic due to motion artifact. We will go ahead and repeat the CT No fracture seen on the shoulder or humerus Repeat head CT was negative for fracture. MDM - Fall Imaging Data Left shoulder and humerus x-ray: Radiologist's impression: 2 views of left humerus and 3 views of left shoulder? FINDINGS: There is no evidence of fracture, dislocation, soft tissue abnormalities. Visualized elbow is intact also.? XR/XR shoulder LT min 2V IMPRESSION: No fractures seen? Discharge Plan Discharge Clinical Impression: Fall, Contusion of left shoulder, Traumatic ecchymosis of forehead Patient Disposition: Home, Self-Care Instructions: Ecchymosis (ED) Additional Instructions: Please follow-up with your primary care physician tomorrow. If you have any worsening or new symptoms, please return to the emergency room or call 911 Prescriptions: No [facility] losartan 50 mg tablet 1 tab PO DAILY mycophenolate mofetil [CellCept] 250 mg Capsule 500 mg PO BID@ cyanocobalamin (vitamin B-12) [Vitamin B-12] 1,000 mcg Tablet 1,000 mcg PO DAILY aspirin 81 mg Tablet,Delayed Release (Dr/Ec) 81 mg PO DAILY tramadol 50 mg tablet 1 tab PO BEDTIME lamotrigine 25 mg tablet 250 mg PO DAILY psyllium Powder 1 tbsp PO DAILY@1829 Rx Instructions: mix into at least 8 oz of water or juice before administering tamsulosin 0.4 mg capsule 2 cap PO DAILY@1829 trazodone 100 mg tablet 1 tab PO DAILY@1829 cyclosporine modified 100 mg Capsule 100 mg PO BID@ calcitriol 0.25 mcg capsule 1 cap PO DAILY verapamil 240 mg capsule,ext rel. pellets 24 hr 1 cap PO DAILY escitalopram oxalate 20 mg tablet 1 tab PO DAILY dutasteride 0.5 mg capsule 1 cap PO DAILY peg 400-propylene glycol 0.4-0.3 % Drops 1 drp OPHTHALMIC (EYE) BID@ PRN (Reason: Dry Eye(S)) bupropion HCl 300 mg tablet extended release 24 hr 1 tab PO DAILY cinacalcet 30 mg tablet 1 tab PO DAILY cholecalciferol (vitamin D3) 1,250 mcg (50,000 unit) Capsule 1,250 mcg PO QMONTH glucosamine reeder 2KCl-chondroit [Glucosamine-Chondroitin DS] 500-400 mg Tablet 1 tab PO DAILY Icaps MV 1 tab PO DAILY
[2022-03-25 20:00] VITALS: BP 166/59; PULSE 80; RESP 16; TEMP 36.6; O2SAT 99
--- NOTE | 2022-03-25 21:19 | PC.NURSE ---
PATIENT HAD [employer] SANDWICH ,ICE CREAM AND ABUNDIO LUI FOR SNACK .
[2022-03-25 21:52] VITALS: BP 160/72; PULSE 72; RESP 16; TEMP 36.5; O2SAT 98
--- NOTE | 2022-03-25 23:08 | PC.NURSE ---
SAMANTHA alamo approached me asking to book a ride home for pt [facility]. [facility] was called at [phone] no eta but they will get the pt home.
[2022-03-26] VITALS: BP 158/70; PULSE 70; RESP 16; TEMP 36.3; O2SAT 95
[2022-03-26 02:00] VITALS: PULSE 80
--- NOTE | 2022-03-26 02:39 | PC.NURSE ---
PATIENT WAS ASSISTED TO THE BATHROOM ,VOIDED SMALL AMOUNT OF URINE .
[2022-03-26 05:54] LABS: Appearance Urine Turbid; Color Urine Yellow; Glucose Urine UA Negative (Negative); Leukocyte Esterase Urine Large (3+) (Negative); Nitrite Urine Positive (Negative); PH 7.5 (5.0-9.0); UMIC TRIGGER UACC YES; Urine Blood Trace (Negative); Urine Ketones Negative (Negative); Urine Protein 100 (2+) mg/dL (Neg-Trace)
[2022-03-26 05:56] LABS: Bacteria Urine 4+ (None Seen); Hyaline Casts Urine 0-2 /LPF (0-2); Squamous Epithelial Cell Urine 0-2 /HPF (0-2); UACC Culture Trigger YES; WBC Urine >50 /HPF (0-5)
[2022-03-26 05:59] VITALS: BP 182/79; PULSE 81; RESP 16; TEMP 37.1; O2SAT 98
--- NOTE | 2022-03-26 06:24 | PC.NURSE ---
Pt requested to get up and use the bathroom 3-4 times within a two hour period during the night. Pt unable to void more than 100 mL each time; unable to void anything on one occasion. This RN then bladder scanned the pt to find 880 mL of urine in the bladder. Pt was then straight cathed and urine sample sent to the lab. Lab results revealed a UTI. This RN checked rectal temp at 99.4. Plan to treat pt with oral antibiotics and return pt to [facility].
[2022-03-26 06:30] VITALS: TEMP 37.4
[2022-03-26] MEDS: levoFLOXacin 250 MG TABLET PO (07:47)
== END 2022-03-26 10:25 | disposition home or self-care (01) ==
PROVIDERS: Internal Medicine; Emergency Provider Emergency Medicine
DX: S40.012A Contusion of left shoulder, initial encounter (principal); S00.83XA Contusion of other part of head, initial encounter; R51.9 Headache, unspecified; M54.2 Cervicalgia; W01.190A Fall on same level from slipping, tripping and stumbling with subsequent striking against furniture, initial encounter; Y93.9 Activity, unspecified; Y92.129 Unspecified place in nursing home as the place of occurrence of the external cause; Y99.9 Unspecified external cause status; Z79.899 Other long term (current) drug therapy; Z87.891 Personal history of nicotine dependence
CPT/HCPCS: 70450; 72126; 73030; 73060; 81001; 87086; 99284

== ENCOUNTER 2022-06-15 11:17 | Outpatient (REF) | payer MEDICARE, MEDICAID, SELFPAY | END 2022-06-15 11:18 | disposition home or self-care (01) | LOC: HO.LAB 11:17 | PROVIDERS: PCP Internal Medicine; Visit Provider Nurse Practitioner Family | DX: N39.0 Urinary tract infection, site not specified (principal); A49.9 Bacterial infection, unspecified; R33.9 Retention of urine, unspecified; N40.0 Benign prostatic hyperplasia without lower urinary tract symptoms; Z87.898 Personal history of other specified conditions | CPT/HCPCS: 51798; 87086; 99202 ==

== ENCOUNTER → 2022-07-31 09:46 | Outpatient (BNVA) | payer MEDICARE, MEDICAID, SELFPAY | PROVIDERS: PCP Internal Medicine; Visit Provider Urology | DX: N40.1 Benign prostatic hyperplasia with lower urinary tract symptoms (principal); R33.8 Other retention of urine; N39.0 Urinary tract infection, site not specified; B96.89 Other specified bacterial agents as the cause of diseases classified elsewhere | CPT/HCPCS: 51798; 99212 ==